=== PATIENT | female | born 1970 | race Caucasian/White ===

== ENCOUNTER 2022-06-14 09:59 | Outpatient (CLI) | payer BC, SELFPAY ==
--- NOTE | 2022-06-14 11:00 | NEURO_ITS ---
Impression: # Complains of paresthesia and pain in hands. # Bilateral Carpal Tunnel Syndrome, sensory more than motor. # No ulnar neuropathy. # Normal needle/EMG exam. Motor Nerve Conduction Upper Extremities Median Nerve Conduction Velocity (m/sec) Terminal Latency (msec) Response Voltage(mV) Elbow-Wrist Wrist Elbow Wrist Right 59 4.1 2 2 Left 59 4.9 2 2 Ulnar Nerve Conduction Velocity (m/sec) Terminal Latency (msec) Response Voltage(mV) Above Elbow Below Elbow Wrist Above Elbow Below Elbow Wrist Right 55 2.5 5 7 Left 58 2.6 5 7 F-Wave Latency Median (ms) Ulnar (ms) Right 26.2 26.7 Left 26.1 26.9 Sensory Nerve Conduction Upper Extremities Median Nerve Stimulation Terminal Latency (msec) Wrist/Digit Response Voltage (uV) Wrist Right 6.7/6.7 13/18 Left 5.6/NR 13/NR Ulnar Nerve Stimulation Terminal Latency (msec) Wrist/Digit Response Voltage (uV) Wrist Right 2.5 45 Left 2.7 19 Radial Nerve Terminal Latency (msec) Response Voltage(mV) Right 2.4 7 Left 2.3 29 Left Right Muscles Examined Fibrillation Fasciculation Scarcity Voltage Duration Left Right Left Right Left Right Left Right Left Right Deltoid Biceps X X Brachioradialis Triceps X X Pronator Teres X X Ext Indicis X X Ext Digitorum X X Abd Poll Brev X X 1st Dorsal Interosseus X X Abd Dig Min MTDD
== END 2022-06-14 10:00 | disposition home or self-care (01) ==
LOC: ANHNEURO 10:01
PROVIDERS: PCP Nurse Practitioner; Visit Provider Orthopaedic Surgery
DX: G56.03 Carpal tunnel syndrome, bilateral upper limbs (principal)
CPT/HCPCS: 95886; 95911

== ENCOUNTER 2022-07-02 01:49 | Day surgery (SDC) | payer BC, SELFPAY ==
[2022-06-19 14:48] VITALS: BMI 26.6
--- NOTE | 2022-06-19 15:16 | SUR.PREOP ---
Report to the Outpatient Waiting Room, entrance under the green pavilion located off [facility], at time _1000 on date _07/02/22 . Planned Procedure Time: _1200 . Time changes happen often and if your time is changed the preop area will call you the afternoon before. - You and your visitor will be asked to self-screen and do not enter if you have any COVID symptoms. - Only one visitor is requested with a max of two and NO children visitors are allowed at this time. - The patient visitor may be requested to leave or wait in car when not with patient due to distancing restrictions. - A mask is optional within the hospital at this time. Patients may have clear liquids (water, carbonated beverages, clear teas, apple juice) until 3 hours prior to surgery with a maximum of 20 ounces. - No food from midnight until time of surgery - Infants may have breast milk until 4 hours before surgery, infant formula 6 hours prior to surgery. - Children will be allowed to drink immediately following surgery. If applicable, please bring a bottle or sippy cup to assist with drinking. Juice, water, soda, and popsicles are readily available. For infants on formula, please bring formula the day of surgery. Pacifiers are allowed. Take the following medications with a SIP of water the morning of surgery: _bupropion,paxel DO NOT STOP ANY OF YOUR OTHER PRESCRIPTION MEDICATIONS PRIOR TO SURGERY ?EXCEPT THE FOLLOWING Medications to discontinue per physician ____n/a Date to take last dose____n/a Please no make-up, nail marshallese, hairspray, perfume, deodorant, or body powder the day of surgery. No jewelry (including any body piercings) or valuables the day of surgery, leave them at home. Please take a shower or bath the night before, or the morning of, surgery with an antibacterial soap. Wear comfortable, loose fitting clothing. Children are encouraged to wear pajamas. - Jewelry must be removed prior to entering the operating room. Rings and piercings that are not removed may be cut off. - The hospital will not accept responsibility for valuables. - Please leave all valuables, including medications, at home the day of surgery. If you are going home after surgery, a licensed garbage collector driver must drive you home. - NO public transportation without another adult if you receive anesthesia. - We recommend that an adult stay with you for 24 hours following discharge. - We also recommend that you do not drive, make important decision, drink alcoholic beverages, or take any drugs that were not prescribed by your health care provider for at least 24 hours after your discharge time. For Pediatric surgeries, we recommend two adults accompany the child home. Follow any additional instructions given to you from your surgeon. If you or anyone in your household have experienced Covid symptoms in the past week, please notify your surgeon or the nurse liaison at the phone number below for possible testing. Telephone instructions given to lyubov gilmore and asked if any additional questions and then verbalized understanding. Patient advised to call surgeon office or pre surgery nurse liaison [phone] if any additional questions.
[2022-07-02] MEDS: ACETAMINOPHEN 500 MG TABLET 1000 MG PO (10:23)
[2022-07-02] MEDS: LACTATED RINGERS 1,000 ML 30 ML IV CONT (10:39)
[2022-07-02 10:48] VITALS: BP 96/64; PULSE 61; RESP 16; TEMP 37.4; O2SAT 100
--- NOTE | 2022-07-02 11:36 | WPDHPUPDATE1 ---
History and Physical Update Update Date/Time: 07/02/22 11:36 History and Physical has been reviewed, including an updated exam of the patient. There are NO changes in the patient's condition. Risks, benefits, and alternatives have been discussed and questions answered. Patient agrees to proceed with procedure.
[2022-07-02] MEDS: KETOROLAC 15 MG/ML VIAL (*BKC) IV PUSH (11:44)
--- NOTE | 2022-07-02 11:47 | WPDANESEPPF ---
Anes - Initial Pre Proc Eval Procedure: Operation Date: 07/02/22 12:00 Proposed Procedures p Bilateral Carpal Tunnel Release - Eriberto Zuñiga MD Date/Time: 07/02/22 11:47 Surgeon: Eriberto Zuñiga MD Pre Op Diagnosis: bilateral carpal tunnel syndrome Patient Data Age: 51 Gender: F Height: 1.65 m Weight: 70.8 kg Last Vital Signs Temp 37.4 C 07/02/22 10:48 Pulse 61 07/02/22 10:48 Resp 16 07/02/22 10:48 BP 96/64 L 07/02/22 10:48 Pulse Ox 100 07/02/22 10:48 O2 Del Method Room Air 07/02/22 10:48 Allergies Allergy/AdvReac Type Severity Reaction Status Date / Time codeine Allergy Mild Rash Verified 07/02/22 10:12 Penicillins Allergy Mild rash Verified 07/02/22 10:12 Home Medications Medication Instructions Recorded Confirmed Type bupropion HCl 300 mg 24 hr tablet, 300 mg PO QAM 03/16/20 07/02/22 History extended release (Wellbutrin XL) pramipexole 0.25 mg tablet 0.25 mg PO TID 03/16/20 07/02/22 History paroxetine HCl 10 mg tablet (Paxil) 20 mg PO DAILY 03/15/21 07/02/22 History Patient hx anesthesia problems: none Family hx anesthesia problems: none Results Review: All pre-operative results and documents have been reviewed as part of the pre-operative evaluation. [facility]LY [facility], [facility] Past Medical History Medical History Anemia Bilateral carpal tunnel syndrome BMI 23.0-23.9, adult Osteoarthritis of right knee Tear of medial meniscus of right knee Surgical History Surgical History H/O shoulder surgery right, 2017, Dr. 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 Informed Consent: The patient's anesthetic plan and its attendant risks and benefits were discussed with the patient/family/POA. Questions were solicited and answers provided to the satisfaction of the patient/family/POA.
[2022-07-02] MEDS: ceFAZolin 2 GM/D5W 50 ML 2 GM/50 ML BAG IVPB (11:54)
[2022-07-02] MEDS: BUPIVACAINE/EPINEPHRINE 0.5% 10 ML VIAL 50 ML INFILTRATE (12:25)
[2022-07-02 12:36] VITALS: BP 134/68; PULSE 63; RESP 14; O2SAT 99
--- NOTE | 2022-07-02 12:53 | W.PM.PROC2 ---
Procedure Note - Detailed Date of Procedure 07/02/22 Pre-op Diagnosis bilateral carpal tunnel syndrome Post-op Diagnosis Same Procedure Performed Bilateral carpal tunnel releases Surgeon Eriberto Zuñiga MD Programs Assistant Kunal Conklin Anesthesia MAC and Local Description of Procedure The patient was identified and proper sites identified. After being taken to the operating room and transferred to the OR table, a nonsterile tourniquet was placed high on the right upper extremity, which was prepped and draped in the usual sterile fashion. Left upper extremity was prepped and draped in usual sterile fashion distal to the antecubital IV. After IV sedation was administered, the subcutaneous tissue in the area of the incision At each wrist was infiltrated with several cc of 0.25% Marcaine and epinephrine solution. The right upper extremity was exsanguinated and tourniquet inflated to 200 mmHg remaining up for approximately 4 minutes. A longitudinal incision was over the ulnar aspect of the transverse carpal ligament. Subcutaneous tissue was bluntly dissected down to the ligament, which was identified and then transected longitudinally in line with the incision releasing the contents of the carpal canal. The tourniquet was released. Hemostasis was carried out with bipolar electrocautery. The median nerve had appropriate blush with reperfusion. The wound was irrigated with sterile saline solution. Skin edges were reapproximated with four 0 nylon suture and a sterile dressing was applied. The same procedure was performed on the left upper extremity but an Esmarch bandage was used as the tourniquet on the midportion of the forearm. It remained in place for about 4 minutes as well. A well-padded volar wrist splint was fashioned with the wrist in a neutral position for each upper extremity. She tolerated the procedures well. There were no known intraoperative complications. Estimated blood loss negligible. She received perioperative antibiotics. Estimated Blood Loss -2.0 Tourniquet Time 4 ( 4 minutes on each side.) Drains No Packing No Pathology None sent Complications No immediate complications Condition Stable Disposition PACU [facility] Billing Surgery - Charge Forward: Surgery Billing ([id number] x 2 Since this was bilateral procedure)
[2022-07-02 13:00] VITALS: BP 130/50; PULSE 60; RESP 20
[2022-07-02 13:30] VITALS: BP 130/62; PULSE 63; RESP 20
[2022-07-02 13:45] VITALS: BP 135/66; PULSE 60; RESP 20
== END 2022-07-02 13:50 | disposition home or self-care (01) ==
PROVIDERS: PCP Nurse Practitioner; Visit Provider Orthopaedic Surgery
PROC: (CPT 64721; principal; 2022-07-02 12:00)
DX: G56.03 Carpal tunnel syndrome, bilateral upper limbs (principal)
CPT/HCPCS: 64721; A9270; J0690; J1885; J2250; J2405; J2704; J3010; J7120

== ENCOUNTER 2023-08-09 00:54 | Day surgery (SDC) | payer BC, SELFPAY ==
[2023-07-31 11:57] VITALS: BMI 25.0
--- NOTE | 2023-07-31 12:02 | PC.NURSE ---
Report to the Outpatient Waiting Room, entrance under the green pavilion located off [facility], at time 0800 on date 08/09/23. Planned Procedure Time: 1000. Time changes happen often and if your time is changed the preop area will call you the afternoon before. - You and your visitor will be asked to self-screen and do not enter if you have any COVID symptoms. - A mask is optional within the hospital at this time. Patients may have clear liquids (water, carbonated beverages, clear teas, apple juice) until 3 hours prior to surgery with a maximum of 20 ounces. - No food from midnight until time of surgery Take the following medications with a SIP of water the morning of surgery: AUVELITY DO NOT STOP ANY OF YOUR OTHER PRESCRIPTION MEDICATIONS PRIOR TO SURGERY ?EXCEPT THE FOLLOWING Medications to discontinue per physician: N/A Date to take last dose: N/A Please no make-up, nail lao, hairspray, perfume, deodorant, or body powder the day of surgery. No jewelry (including any body piercings) or valuables the day of surgery, leave them at home. Please take a shower or bath the night before, or the morning of, surgery with an antibacterial soap. Wear comfortable, loose fitting clothing. - Jewelry must be removed prior to entering the operating room. Rings and piercings that are not removed may be cut off. - The hospital will not accept responsibility for valuables. - Please leave all valuables, including medications, at home the day of surgery. If you are going home after surgery, a licensed pile driver operator must drive you home. - NO public transportation without another adult if you receive anesthesia. - We recommend that an adult stay with you for 24 hours following discharge. - We also recommend that you do not drive, make important decision, drink alcoholic beverages, or take any drugs that were not prescribed by your health care provider for at least 24 hours after your discharge time. Follow any additional instructions given to you from your surgeon. If you or anyone in your household have experienced Covid symptoms in the past week, please notify your surgeon or the nurse liaison at the phone number below for possible testing. Telephone instructions given to SIDNEY BLACKWOOD and asked if any additional questions and then verbalized understanding. Patient advised to call surgeon office or pre surgery nurse liaison [phone] if any additional questions.
--- NOTE | 2023-08-04 11:46 | P.HP_ITS ---
H&P: HPI History of Present Illness Date/Time: 08/04/23 11:46 Chief Complaint: PATRICIO Narrative: 52 who desires surgial intervention for PATRICIO Review of Systems Review of Systems: All systems reviewed & are unremarkable except as noted in HPI and below PMFSH Past Medical History Medical History Anemia BMI 23.0-23.9, adult Osteoarthritis of right knee Tear of medial meniscus of right knee Trigger thumb, right thumb Surgical History Surgical History Bilateral carpal tunnel syndrome simultaneous bilateral carpal tunnel release July 02, 2022 H/O shoulder surgery right, 2017, Dr. 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 Gender identity (if verbalized by the patient): Female Spiritual care concerns: No Meds Home Medications and Allergies Home Medications Medication Instructions Recorded Confirmed Type pramipexole 0.25 mg tablet 0.25 mg PO TID 03/16/20 07/31/23 History dextromethorphan IR 45 1 tablet PO BID 07/31/23 07/31/23 History mg-bupropion ER 105 mg biphasic tablet (Auvelity) estradiol-norethindrone acet 1 1 tablet PO DAILY 07/31/23 07/31/23 History mg-0.5 mg tablet Allergies Allergy/AdvReac Type Severity Reaction Status Date / Time codeine Allergy Mild Rash Verified 07/31/23 11:55 Penicillins Allergy Mild rash Verified 07/31/23 11:55 Exam Narrative: NAD A+O x3 + urehtral mobility Assessment and Plan Assessment and plan (1) PATRICIO (stress urinary incontinence, female): Code(s): N39.3 - Stress incontinence (female) (male) Status: Acute Assessment and Plan: urethral sling. Discussed risks, benifits, alternative. Outlined in chart
--- NOTE | 2023-08-09 04:37 | WPDHPUPDATE1 ---
History and Physical Update Update Date/Time: 08/09/23 04:37 History and Physical has been reviewed, including an updated exam of the patient. There are NO changes in the patient's condition. Risks, benefits, and alternatives have been discussed and questions answered. Patient agrees to proceed with procedure.
--- NOTE | 2023-08-09 08:29 | P.PNAN_ITS ---
Anes - Initial Pre Proc Eval Procedure: Operation Date: 08/09/23 10:00 Proposed Procedures p Urethral Sling - Jeff Lanza MD Date/Time: 08/09/23 08:29 Surgeon: Jeff Lanza MD Pre Op Diagnosis: stress incontinence Patient Data Age: 52 Gender: F Height: 1.65 m Weight: 68.05 kg Allergies Allergy/AdvReac Type Severity Reaction Status Date / Time codeine Allergy Mild Rash Verified 08/09/23 08:44 Penicillins Allergy Mild rash Verified 08/09/23 08:44 Home Medications Medication Instructions Recorded Confirmed Type pramipexole 0.25 mg tablet 0.25 mg PO TID 03/16/20 07/31/23 History dextromethorphan IR 45 1 tablet PO BID 07/31/23 07/31/23 History mg-bupropion ER 105 mg biphasic tablet (Auvelity) estradiol-norethindrone acet 1 1 tablet PO DAILY 07/31/23 07/31/23 History mg-0.5 mg tablet Patient hx anesthesia problems: none Family hx anesthesia problems: none Results Review: All pre-operative results and documents have been reviewed as part of the pre- operative evaluation. [facility] Past Medical History Medical History (Updated 08/09/23 @ 08:31 by Craig Nuñez DO) Anemia Anxiety BMI 23.0-23.9, adult Depression Osteoarthritis of right knee PTSD (post-traumatic stress disorder) RLS (restless legs syndrome) Tear of medial meniscus of right knee Trigger thumb, right thumb Surgical History Surgical History Bilateral carpal tunnel syndrome simultaneous bilateral carpal tunnel release July 02, 2022 H/O shoulder surgery right, 2017, Dr. 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 Informed Consent: The patient's anesthetic plan and its attendant risks and benefits were discussed with the patient/family/POA. Questions were solicited and answers provided to the satisfaction of the patient/family/POA.
[2023-08-09] MEDS: LACTATED RINGERS 1,000 ML 30 ML IV CONT (08:30)
[2023-08-09 08:40] VITALS: BP 118/54; PULSE 61; RESP 14; TEMP 36.5; O2SAT 100
[2023-08-09] MEDS: BUPIVACAINE/EPINEPHRINE 0.5% 30 ML VIAL 10 ML INFILTRATE (09:12)
[2023-08-09] MEDS: ceFAZolin 2 GM/D5W 50 ML 2 GM/50 ML BAG IVPB (09:25)
[2023-08-09 09:54] VITALS: BP 112/64; PULSE 71; RESP 14; O2SAT 100
--- NOTE | 2023-08-09 09:54 | P.OP_ITS ---
Procedure Note - Detailed Date of Procedure 08/09/23 Pre-op Diagnosis stress incontinence Post-op Diagnosis Same Procedure Performed mid urethral sling cystoscopy Surgeon Jeff Lanza MD Anesthesia MAC and Local Indications This is a female with confirm stress urinary incontinence. She desires surgical correction. She understands the risks of bleeding, infection, injury to the urinary tract, vaginal mesh extrusion, urinary tract mesh erosion, obstructive voiding requiring a secondary procedure, hip and leg pain, dyspareunia, inability to improve overactive bladder symptoms. She agrees to proceed. Description of Procedure She was correctly identified. Informed consent obtained. She was brought the operating room. She was given appropriate anesthesia. She was given appropriate perioperative antibiotics. A time-out performed. I marked out the site of the inner thigh incisions. I anesthetized the skin and made those incisions. I anesthetized the anterior vaginal wall over the mid urethra. I made a 1 cm incision. I dissected out laterally taking great care not to injure the refilled vaginal wall. I passed the helical trocars. First on the left. Then on the right. I did this from the thigh incision towards the vaginal incis ion. The sling was connected to the trocars and brought out through the thigh incision. I tensioned the sling appropriately. I cut and the plastic sheaths. I then closed the incision with 2 0 Vicryl. On cystoscopy there is no tumors or surgical artifact. There was no surgical artifact in the urethra. I cut the excess sling material. Close incisions with glue. She was awakened and transferred to the PACU in stable condition. Implants Urethral sling Estimated Blood Loss 30 Drains No Packing No Pathology None sent Complications No immediate complications Condition Stable Disposition PACU
[2023-08-09 10:24] VITALS: BP 117/76; PULSE 64
[2023-08-09 10:54] VITALS: BP 122/65; PULSE 55
--- NOTE | 2023-08-09 11:11 | SUR.PHASEII ---
patient urinated with no issues
[2023-08-09 11:18] VITALS: BP 115/73; PULSE 55
== END 2023-08-09 11:23 | disposition home or self-care (01) ==
PROVIDERS: PCP Nurse Practitioner; Visit Provider Urology
PROC: (CPT 57288; principal; 2023-08-09 10:00)
DX: N39.3 Stress incontinence (female) (male) (principal); F41.9 Anxiety disorder, unspecified; F32.A Depression, unspecified
CPT/HCPCS: 57288; C1771; J0690; J2250; J2704; J3010; J7120

== ENCOUNTER 2025-01-21 01:11 | Day surgery (SDC) | payer BC, SELFPAY ==
--- OUTSIDE RECORDS SUMMARY | 2024-11-04 04:30 | XMS_ITS ---
Author Organization [facility] [email or web address] [facility] Address [facility] [facility] [address] [facility] [address] [place] [address] Care Team Providers Care Circuit Walker Name Role Phone China Bee Primary Care Provider Jairo Lassiter Unavailable [phone] REASON FOR VISIT 1 month f/u Social History Sex Assigned At : Social History Observation Description Sex Assigned At Female Encounters Encounter Location Date Provider Diagnosis [facility] [employer] [place] [address] [facility] [address] [place] [address] 11/04/2024 Jairo Martinez Plan Of Treatment Next Appt Details Provider Name:Jairo lazcano, 03/29/2025 08:45:00 AM, [address], [facility] [address], [place], [address], Progress Notes * MERCED MONACODOB: 9 (54 yo F)Acc No.[id number]:11/04/2024 Patient: MERCED BROWN Provider: MEETA JOHNSON :1970 A ge:53 Y S ex:Female Date:11/04/2024 Address:[address] [facility] Pcp:China SALEEM Subjective: * Chief Complaints: * 1 month f/u Billing Information: * Procedure Codes: * Electronic signature of MEETA Bassett on 01/21/2025 at 01:14 AM CDT Sign off status: Pending * Provider: MEETA JOHNSON Date: 0 11/04/2024 Generated for Grisel kennedy/Angle/Sarmad on: 0 01/21/2025 01:14 AM CDT
--- OUTSIDE RECORDS SUMMARY | 2024-11-26 04:00 | XMS_ITS ---
Author Organization [facility] [employer] [facility] Address [facility] [address] [address] Care Team Providers Care Cath Lab Technologist Name Role Phone China Bee Primary Care Provider Jairo Lassiter Unavailable [phone] REASON FOR VISIT Depression Social History Sex Assigned At : Social History Observation Description Sex Assigned At Female Encounters Encounter Location Date Provider Diagnosis [facility] [employer] [place] [address] [facility] [address] [address] 11/26/2024 Jairo Martinez Plan Of Treatment Next Appt Details Provider Name:Jairo lazcano, 03/29/2025 08:45:00 AM, [address], [facility], [place], [address], Progress Notes * MERCED MONACODOB: 9 (54 yo F)Acc No.[id number]:11/26/2024 Patient: MERCED BROWN Provider: MEETA JOHNSON :1970 A ge:53 Y S ex:Female Date:11/26/2024 Address:[address] [facility] Pcp:China SALEEM Subjective: * Chief Complaints: * D epression * Electronic signature of MEETA Bassett on 01/21/2025 at 01:14 AM CDT Sign off status: Pending * Provider: MEETA JOHNSON Date: 0 11/26/2024 Generated for Grisel kennedy/Angle/Sarmad on: 0 01/21/2025 01:14 AM CDT
--- NOTE | 2025-01-12 13:29 | PC.NURSE ---
Report to the Outpatient Waiting Room, entrance under the green pavilion located off [facility], at time _8:30am on date __[phone] . Planned Procedure Time: _10:30 .? Time changes happen often and if your time is changed the preop area will call you the afternoon before. - You and your visitor will be asked to self-screen and do not enter if you have any COVID symptoms. Please call surgeon if you need to reschedule. - A mask is optional within the hospital at this time. Patients may have clear liquids (water, carbonated beverages, clear teas, apple juice) until 3 hours prior to surgery with a maximum of 20 ounces. - No food from midnight until time of surgery and no smoking, or chewing tobacco (or any form of nicotine). No chewing gum, candy or mints. Take only the following medications with a SIP of water on the morning of surgery: Lexapro, Synthroid, Pramipexole DO NOT STOP ANY OF YOUR OTHER PRESCRIPTION MEDICATIONS PRIOR TO SURGERY EXCEPT THE FOLLOWING: Auvelity the morning of. Celebrex hold for 7 days. Last dose to be taken on 01/13/2025) Hold all vitamins and supplements for 3 days per anesthesiologist. (MVT) Please no make-up, nail bulgarian, hairspray, perfume, deodorant, or body powder the day of surgery.? No jewelry (including any body piercings) or valuables the day of surgery, leave them at home.? Please take a shower or bath the night before, or the morning of, surgery with an antibacterial soap.? Wear comfortable, loose fitting clothing.? Children are encouraged to wear pajamas. - Jewelry must be removed prior to entering the operating room.? Rings and piercings that are not removed may be cut off. - The hospital will not accept responsibility for valuables.? - Please leave all valuables, including medications, at home the day of surgery. If you are going home after surgery, a licensed cdl dedicated truck driver must drive you home.? - NO public transportation without another adult if you receive anesthesia. - We recommend that an adult stay with you for 24 hours following discharge. - We also recommend that you do not drive, make important decision, drink alcoholic beverages, or take any drugs that were not prescribed by your health care provider for at least 24 hours after your discharge time. Follow any additional instructions given to you from your surgeon. Telephone instructions given to __Patient (Adela) and asked if any additional questions and then verbalized understanding. Patient advised to call surgeon office or pre surgery nurse liaison [phone] if any additional questions.
[2025-01-12 13:36] VITALS: BMI 22.8
[2025-01-21] VITALS (9 sets, daily range): BP systolic 98–119; BP diastolic 61–71; PULSE 73–84; RESP 14–17; TEMP 36.4; O2SAT 99–100
--- OUTSIDE RECORDS SUMMARY | 2025-01-21 01:13 | XMS_ITS | Encounter Summary ---
Author Organization [facility] Address [address] [place] [address] Care Team Providers Care Md Ophthalmologist Name Role Phone China Garvey Primary Care Provider [phone] Encounter Details Date Type Department Care Team (Late st Contact Info) Description 06/14/2023 Clear Blue Technologiest Message Enc [facility] [address] [place] [address] China Garvey FNP [address] [place] [phone] Tesfaye Martinez Social History Tobacco Use Types Packs/Day Years Used Date Smoking Tobacco: Never Smokeless Tobacco: Never Alcohol Use Standard Drinks/Week Comments Yes 0 (1 standard drink = 0.6 oz pur e alcohol) rarely AUDIT-C Answer Date Recorded Frequency of Alcohol Consumption Monthly or less 12/03/2018 Average Number of Drinks Not on file 019 Frequency of Binge Drinking Not on file 11/05 PHQ-2 Answer Date Recorded Patient Health Questionnaire-2 Score 6 06/13/2023 Comments No Sex and Gender Information Value Date Recorded Sex Assigned at Female 06/24/2024 1:29 PM ENGINE ROOM HELPER Legal Sex Female 7:54 PM CDT Gender Identity Not on file Sexual Orientation Not on file documented as of this encounter Progress Notes * DENNY Henosn - 06/14/2023 2:43 PM CST Great! I'm glad to hear. That is perfect NE ROOM HELPER * Opal Gorman LPN - 06/14/2023 2:17 PM CST FYI: Please review. NE ROOM HELPER documented in this encounter Plan of Treatment Not on file documented as of this encounter Visit Diagnoses Not on filedocumented in this encounter Additional Health Concerns Infection Onset Date Last Indicated Resolved Time COVID-19 Rule Out 06/10/2024 06/10/2024 06/12/2024 9:38 AM ENGINE ROOM HELPER COVID-19 Rule Out 06/23/2024 06/23/2024 06/23/2024 10:40 AM ENGINE ROOM HELPER COVID-19 Rule Out 06/24/2024 06/24/2024 06/24/2024 2:57 PM ENGINE ROOM HELPER Assessment Noted Time PHQ-9 Depression Total Score: 24 024 2:47 PM ENGINE ROOM HELPER documented as of this encounter Care Teams Md Ophthalmologist Relationship Specialty Start Date End Date China Garvey FNP [address] [place] [address] [place] [address] PCP - General Nurse Practitioner Family 08/18/18 documented as of this encounter
--- OUTSIDE RECORDS SUMMARY | 2025-01-21 01:13 | XMS_ITS | Encounter Summary ---
Author Organization [facility] Address [address] [place] [address] Care Team Providers Care Transition Specialist Name Role Phone China GarveyP Primary Care Provider [phone] Encounter Details Date Type Department Care Team (Late st Contact Info) Description 08/29/2023 Audioairt Message Enc [facility] [address] [place] [address] China Garvey FNP [address] [place] [phone] Lab tests Social History Tobacco Use Types Packs/Day Years [...] Date Recorded Patient Health Questionnaire-2 Score 6 08/07/2023 Comments No Sex and Gender Information Value Date Recorded Sex Assigned at Female 06/24/2024 1:29 PM DIRECTOR GLOBAL INTELLIGENCE Legal Sex Female 7:54 PM CDT Gender Identity Not on file Sexual Orientation Not on file documented as of this encounter Progress Notes * DENNY Henson - 09/02/2023 2:35 PM CDT I reviewed the results, all the labs are resulted except B6 and ferritin. They are still processing. There are no significant abnormalities seen. * DENNY Henson - 08/30/2023 10:07 AM CDT I see the labs in the chart. They are not all resulted yet. I will continue to watch for the results and comment once I can review them all. * Opal Gorman LPN - 08/29/2023 2:06 PM CDT Please review/advise. Lab results are in EPIC. documented in this encounter Plan of Treatment Not on file documented as of this encounter Visit Diagnoses Not on filedocumented in this encounter Additional Health Concerns Infection Onset Date Last Indicated Resolved Time COVID-19 Rule Out 06/10/2024 06/10/2024 06/12/2024 9:38 AM DIRECTOR GLOBAL INTELLIGENCE COVID-19 Rule Out 06/23/2024 06/23/2024 06/23/2024 10:40 AM DIRECTOR GLOBAL INTELLIGENCE COVID-19 Rule Out 06/24/2024 06/24/2024 06/24/2024 2:57 PM DIRECTOR GLOBAL INTELLIGENCE Assessment Noted Time PHQ-9 Depression Total Score: 8 08/07/19 24 5:34 PM CDT documented as of this encounter Care Teams Transition Specialist Relationship Specialty Start Date End Date China Garvey FNP [address] [place] [address] [place] [address] PCP - General Nurse Practitioner Family 08/18/18 documented as of this encounter
--- OUTSIDE RECORDS SUMMARY | 2025-01-21 01:13 | XMS_ITS | Encounter Summary ---
Author Organization [facility] Address [address] [place] [address] Care Team Providers Care Childcare Center Director Name Role Phone China Garvey Primary Care Provider Encounter Details Date Type Department Care Team (Late st Contact Info) Description 12/02/2023 Access Closuret Message Enc [facility] [address] [place] [phone] China Garvey FNP [address] [place] [phone] Blood work Social History Tobacco Use Types Packs/Day Years [...] Sex Assigned at Female 06/24/2024 1:29 PM FIBERGLASS FABRICATOR Legal Sex Female 7:54 PM CDT Gender Identity Not on file Sexual Orientation Not on file documented as of this encounter Progress Notes * DENNY Henson - 12/03/2023 1:27 PM CDT Labs reviewed. Improved! Continued follow up per Dr Hess as planned * Opal Gorman LPN - 12/03/2023 12:29 PM CDT Please review/advise. documented in this encounter Plan of Treatment Not on file documented as of this encounter Visit Diagnoses Not on filedocumented in this encounter Additional Health Concerns Infection Onset Date Last Indicated Resolved Time COVID-19 Rule Out 06/10/2024 06/10/2024 06/12/2024 9:38 AM FIBERGLASS FABRICATOR COVID-19 Rule Out 06/23/2024 06/23/2024 06/23/2024 10:40 AM FIBERGLASS FABRICATOR COVID-19 Rule Out 06/24/2024 06/24/2024 06/24/2024 2:57 PM FIBERGLASS FABRICATOR Assessment Noted Time PHQ-9 Depression Total Score: 8 08/07/19 24 5:34 PM CDT documented as of this encounter Care Teams Childcare Center Director Relationship Specialty Start Date End Date China Garvey FNP [address] [place] [address] [place] [address] PCP - General Nurse Practitioner Family 08/18/18 documented as of this encounter
--- OUTSIDE RECORDS SUMMARY | 2025-01-21 01:14 | XMS_ITS | Encounter Summary ---
Author Organization [facility] Address [address] [place] [address] Care Team Providers Care Help Desk Specialist Name Role Phone China Garvey [facility] Primary Care Provider [phone] Encounter Details Date Type Department Care Team (Late st Contact Info) Description 11/04/2020 Aden & Anaist Message Enc [facility] [address] [place] [address] China Garvey [facility] [address] [place] [phone] RE: RE: Test Results Social History Tobacco Use Types Packs/Day Years Used Date Smoking Tobacco: Never Smokeless Tobacco: Never Alcohol Use Standard Drinks/Week Comments Yes 0 (1 standard drink = 0.6 oz pur e alcohol) AUDIT-C Answer Date Recorded Frequency of Alcohol Consumption Monthly or less 12/03/2018 Average Number of Drinks Not on file 019 Frequency of Binge Drinking Not on file 11/05 PHQ-2 Answer Date Recorded PHQ-2 Score - If the patient scores above 3, please move on to questions 3-9 0 03/01/2020 Comments No Sex and Gender Information Value Date Recorded Sex Assigned at Female 06/24/2024 1:29 PM PRESS TENDER Legal Sex Female 7:54 PM CDT Gender Identity Not on file Sexual Orientation Not on file COVID-19 Exposure Response Date Recorded In the last month, have you been in contact with someone who was confirmed or suspected to have Coronavirus / COVID-19? No / Unsure 10/11/2020 3:28 PM CDT documented as of this encounter Plan of Treatment Not on file documented as of this encounter Visit Diagnoses Not on filedocumented in this encounter Additional Health Concerns Infection Onset Date Last Indicated Resolved Time COVID-19 Rule Out 06/10/2024 06/10/2024 06/12/2024 9:38 AM PRESS TENDER COVID-19 Rule Out 06/23/2024 06/23/2024 06/23/2024 10:40 AM PRESS TENDER COVID-19 Rule Out 06/24/2024 06/24/2024 06/24/2024 2:57 PM PRESS TENDER Assessment Noted Time PHQ-9 Depression Total Score: 10 019 12:51 PM CDT documented as of this encounter Care Teams Help Desk Specialist Relationship Specialty Start Date End Date China Garvey FNP [address] [place] [address] [place] [address] PCP - General Nurse Practitioner Family 08/18/18 documented as of this encounter
--- OUTSIDE RECORDS SUMMARY | 2025-01-21 01:14 | XMS_ITS | Encounter Summary ---
Author Organization [facility] Address [address] [place] [address] Care Team Providers Care Picture Painter Name Role Phone China Garvey [facility] Primary Care Provider [phone] Encounter Details Date Type Department Care Team (Late st Contact Info) Description 10/09/2019 Yokat Message Enc [facility] [address] [place] [address] China Garvey [facility] [address] [place] [phone] RE: RE: Medication Questions Social History Tobacco Use Types Packs/Day Years [...] 11/05 PHQ-2 Answer Date Recorded PHQ-2 Score 5 04/14/2019 Comments Unknown Sex and Gender Information Value Date Recorded Sex Assigned at Female 06/24/2024 1:29 PM METAL ANNEALER Legal Sex Female 7:54 PM CDT Gender Identity Not on file Sexual Orientation Not on file documented as of this encounter Plan of Treatment Not on file documented as of this encounter Visit Diagnoses Not on filedocumented in this encounter Additional Health Concerns Infection Onset Date Last Indicated Resolved Time COVID-19 Rule Out 06/10/2024 06/10/2024 06/12/2024 9:38 AM METAL ANNEALER COVID-19 Rule Out 06/23/2024 06/23/2024 06/23/2024 10:40 AM METAL ANNEALER COVID-19 Rule Out 06/24/2024 06/24/2024 06/24/2024 2:57 PM METAL ANNEALER Assessment Noted Time PHQ-9 Depression Total Score: 10 019 12:51 PM CDT documented as of this encounter Care Teams Picture Painter Relationship Specialty Start Date End Date China Garvey FNP [address] [place] [address] [place] [address] PCP - General Nurse Practitioner Family 08/18/18 documented as of this encounter
--- OUTSIDE RECORDS SUMMARY | 2025-01-21 01:14 | XMS_ITS | Encounter Summary ---
Author Organization [facility] Address [address] [place] [address] Care Team Providers Care Sonography Technician Name Role Phone China Garvey [facility] Primary Care Provider [phone] Encounter Details Date Type Department Care Team (Late st Contact Info) Description 01/27/2020 [employer] Message Enc [facility] [address] [place] [address] China Garvey [facility] [address] [place] [phone] RE: Question Social History Tobacco Use Types Packs/Day Years [...] Date Recorded PHQ-2 Score 5 04/14/2019 Comments No Sex and Gender Information Value Date Recorded Sex Assigned at Female 06/24/2024 1:29 PM SEALER AIRCRAFT Legal Sex Female 7:54 PM CDT Gender Identity Not on file Sexual Orientation Not on file COVID-19 Exposure Response Date Recorded In the last month, have you been in contact with someone who was confirmed or suspected to have Coronavirus / COVID-19? No / Unsure 01/15/2020 3:34 PM CDT documented as of this encounter Progress Notes * Maribell Dominguez RN - 01/27/2020 11:12 AM CDT Liv, please note and advise. documented in this encounter Plan of Treatment Not on file documented as of this encounter Visit Diagnoses Not on filedocumented in this encounter Additional Health Concerns Infection Onset Date Last Indicated Resolved Time COVID-19 Rule Out 06/10/2024 06/10/2024 06/12/2024 9:38 AM SEALER AIRCRAFT COVID-19 Rule Out 06/23/2024 06/23/2024 06/23/2024 10:40 AM SEALER AIRCRAFT COVID-19 Rule Out 06/24/2024 06/24/2024 06/24/2024 2:57 PM SEALER AIRCRAFT Assessment Noted Time PHQ-9 Depression Total Score: 10 12/03/ 019 12:51 PM CDT documented as of this encounter Care Teams Sonography Technician Relationship Specialty Start Date End Date China Garvey FNP [address] [place] [address] [place] [address] PCP - General Nurse Practitioner Family 08/18/18 documented as of this encounter
--- OUTSIDE RECORDS SUMMARY | 2025-01-21 01:14 | XMS_ITS | Encounter Summary ---
Author Organization [facility] Address [address] [place] [address] Care Team Providers Care Director Of Purchasing Name Role Phone China Garvey [employer] Primary Care Provider [phone] Reason for Visit * Reason Onset Date Comments Error 03/02/2020 Encounter Details Date Type Department Care Team (Late st Contact Info) Description 03/01/2020 Prep for Procedure [facility] General [facility] - [place] [address] [facility], [address] [place] [address] Abbi Marlow, [place] [address] [facility] [address] [place] [address] Error Social History Tobacco Use Types Packs/Day Years [...] Sex Assigned at Female 06/24/2024 1:29 PM MEDICAL SERVICE REPRESENTATIVE Legal Sex Female 7:54 PM CDT Gender Identity Not on file Sexual Orientation Not on file COVID-19 Exposure Response Date Recorded In the last month, have you been in contact with someone who was confirmed or suspected to have Coronavirus / COVID-19? No / Unsure 03/01/2020 11:07 AM CDT documented as of this encounter Plan of Treatment Not on file documented as of this encounter Visit Diagnoses Diagnosis ERRONEOUS ENCOUNTER--DISREGARD- Primary documented in this encounter Additional Health Concerns Infection Onset Date Last Indicated Resolved Time COVID-19 Rule Out 06/10/2024 06/10/2024 06/12/2024 9:38 AM MEDICAL SERVICE REPRESENTATIVE COVID-19 Rule Out 06/23/2024 06/23/2024 06/23/2024 10:40 AM MEDICAL SERVICE REPRESENTATIVE COVID-19 Rule Out 06/24/2024 06/24/2024 06/24/2024 2:57 PM MEDICAL SERVICE REPRESENTATIVE Assessment Noted Time PHQ-9 Depression Total Score: 10 019 12:51 PM CDT documented as of this encounter Care Teams Director Of Purchasing Relationship Specialty Start Date End Date China Garvey FNP [address] [place] [address] [place] [address] PCP - General Nurse Practitioner Family 08/18/18 documented as of this encounter
--- OUTSIDE RECORDS SUMMARY | 2025-01-21 01:14 | XMS_ITS | Encounter Summary ---
Author Organization [facility] Address [address] [place] [address] Care Team Providers Care Senior Property Manager Name Role Phone China Garvey [facility] Primary Care Provider [phone] Encounter Details Date Type Department Care Team (Late st Contact Info) Description 01/31/2021 Cardiolat Message Enc [facility] [address] [place] [address] China Garvey [facility] [address] [place] [phone] RE: FW: Medication Questions Social History Tobacco Use Types [...] please move on to questions 3-9 0 11/18/2020 Comments No Sex and Gender Information Value Date Recorded Sex Assigned at Female 06/24/2024 1:29 PM METEOROLOGY FACULTY MEMBER Legal Sex Female 7:54 PM CDT Gender Identity Not on file Sexual Orientation Not on file documented as of this encounter Progress Notes * Shamika Mahajan LPN - 02/01/2021 2:27 PM CDT Office visit made for 02/08/2021 documented in this encounter Plan of Treatment Not on file documented as of this encounter Visit Diagnoses Not on filedocumented in this encounter Additional Health Concerns Infection Onset Date Last Indicated Resolved Time COVID-19 Rule Out 06/10/2024 06/10/2024 06/12/2024 9:38 AM METEOROLOGY FACULTY MEMBER COVID-19 Rule Out 06/23/2024 06/23/2024 06/23/2024 10:40 AM METEOROLOGY FACULTY MEMBER COVID-19 Rule Out 06/24/2024 06/24/2024 06/24/2024 2:57 PM METEOROLOGY FACULTY MEMBER Assessment Noted Time PHQ-9 Depression Total Score: 0 11/19/19 21 3:32 PM CDT documented as of this encounter Care Teams Senior Property Manager Relationship Specialty Start Date End Date China Garvey FNP [address] [place] [address] [place] [address] PCP - General Nurse Practitioner Family 08/18/18 documented as of this encounter
--- OUTSIDE RECORDS SUMMARY | 2025-01-21 01:14 | XMS_ITS | Encounter Summary ---
Author Organization [facility] Address [address] [place] [address] Care Team Providers Care Bulk Folder Name Role Phone China Garvey [facility] Primary Care Provider Encounter Details Date Type Department Care Team (Late st Contact Info) Description 03/14/2020 SnapMD Message Enc [facility] [address] [place] [address] China Garvey [facility] [address] [place] [phone] RE: Medication Questions Social History Tobacco Use [...] Sex Assigned at Female 06/24/2024 1:29 PM NET TECHNICAL ARCHITECT Legal Sex Female 7:54 PM CDT Gender Identity Not on file Sexual Orientation Not on file COVID-19 Exposure Response Date Recorded In the last month, have you been in contact with someone who was confirmed or suspected to have Coronavirus / COVID-19? No / Unsure 03/01/2020 11:07 AM CDT documented as of this encounter Progress Notes * Maribell Dominguez RN - 03/15/2020 11:03 AM CST LM for patient to return call. TECHNICAL ARCHITECT documented in this encounter Plan of Treatment Not on file documented as of this encounter Visit Diagnoses Not on filedocumented in this encounter Additional Health Concerns Infection Onset Date Last Indicated Resolved Time COVID-19 Rule Out 06/10/2024 06/10/2024 06/12/2024 9:38 AM NET TECHNICAL ARCHITECT COVID-19 Rule Out 06/23/2024 06/23/2024 06/23/2024 10:40 AM NET TECHNICAL ARCHITECT COVID-19 Rule Out 06/24/2024 06/24/2024 06/24/2024 2:57 PM NET TECHNICAL ARCHITECT Assessment Noted Time PHQ-9 Depression Total Score: 10 019 12:51 PM CDT documented as of this encounter Care Teams Bulk Folder Relationship Specialty Start Date End Date China Garvey FNP [address] [place] [address] [place] [address] PCP - General Nurse Practitioner Family 08/18/18 documented as of this encounter
--- OUTSIDE RECORDS SUMMARY | 2025-01-21 01:14 | XMS_ITS | Clinical Summary ---
Author Organization [facility] Address [address] [address] Phone Care Team Providers Care Conciliation Court Judge Name Role Phone Garvey China Cancino APRN Primary Care Provider Sarah Black MD Unavailable Allergies Active Allergy Reactions Criticality Noted Date Comments Codeine Rash Low 09/12/2011 Penicillins Rash Low 09/12/2011 Medications pramipexole (MIRAPEX) 0.25 MG Tablet TAKE 3 TABLETS BY MOUTH 3 TIMES DAILY. 07/19/2021 Active Multiple Vitamin (MULTIVITAMIN PO) Take by mouth. Active traZODone (DESYREL) 50 MG Tablet TAKE 1/2 TO 1 TABLET BY MOUTH AT BEDTIME NEEDED Active levothyroxine (SYNTHROID) 25 MCG Tablet Take 25 mcg by mouth. 06/28/2023 Active Estradiol-Noret hindrone Acet 1-0.5 MG Tablet Take 1 Tablet by mouth daily. 05/30/2023 Active Auvelity 45-105 MG Tablet Controlled Release Take 1 Tablet by mouth 2 times daily. Active escitalopram (LEXAPRO) 10 MG Tablet Take 10 mg by mouth daily. 01/01/2024 Active Active Problems Problem Noted Date Diagnosed Date Iron deficiency anemia refractory to iron therap y 07/31/2021 Family History Relation Name Status Comments Brother 1 Alive Brother 2 Alive Father Alive Mother Alive Sister Alive Social History Tobacco Use Types Packs/Day Years Used Date Smoking Tobacco: Never Smokeless Tobacco: Never Tobacco Cessation:Counseling Given: No Alcohol Use Standard Drinks/Week Comments Never 0 (1 standard drink = 0.6 oz pur e alcohol) PHQ-2 Answer Date Recorded Total Score - Questions 1-9 0 05/0 01/2022 Comments Unknown Sex and Gender Information Value Date Recorded Sex Assigned at Not on file Legal Sex Female 9:06 AM CDT Gender Identity Not on file Sexual Orientation Not on file Last Filed Vital Signs Vital Sign Reading Time Taken Comments Blood Pressure 102/60 03/02/2024 9:11 AM CDT Pulse 65 03/02/2024 9:11 AM CDT Temperature 36.4 C (97.6 F) 03/02/2024 9:11 AM CDT Respiratory Rate - - Oxygen Saturation 97% 03/02/2024 9:11 AM CDT Inhaled Oxygen Concentration - - Weight 74.4 kg (164 lb) 03/02/2024 9:11 AM CDT Height 165.1 cm (5' 5) 03/02/2024 9:11 AM CDT Body Mass Index 27.29 03/02/2024 9:11 AM CDT Plan of Treatment Health Maintenance Due Date Last Done Comments Hepatitis C Virus (HCV) Screening 1970 Hepatitis B Immunization (1 of 3 - 19+ 3-dose series) 12/17/1987 Pap Smear 1989 Cervical Cancer Screening (CCS) 1998 HPV/Cotest 1998 Cologuard 2013 Immunochemical Fecal Occult Blood 2013 Pneumococcal Immunization (5 0+ years) (1 of 1 - PCV) 2018 Zoster Immunization (1 of 2) 2018 Mammogram 01/17/2021 01/18/2020, 01/18/2020 Influenza Immunization (#1) 2025 03/20/2021 SARS-COV-2 Immunization ( season) 2025 04/24/2021, 06/15/2020, 05/18/2020 Colonoscopy 09/30/2031 09/29/2021 Colorectal Cancer Screening 09/30/2031 Respiratory Syncytial Virus (RSV) Immunization (Adult) (1 - 1-dose 75+ series) 12/17/2043 DTaP/Tdap/Td Immunization Discontinued 05/06/2022 TdaP Immunization Completed 05/06/2022 Human Papillomavirus (HPV) Immunization Aged Out No longer eligible based on patient's age to complete this topic Meningococcal Immunization (ACWY) Aged Out No longer eligible based on patient's age to complete this topic Rotavirus Immunization Aged Out No lo nger eligible based on patient's age to complete this topic Insurance [facility] Care Teams Conciliation Court Judge Relationship Specialty Start Date End Date China Garvey APRN [address] [place] [address] PCP - General Certified Nurse Practitioner 07/20/21 Sarah Black MD [address] [place] [address] Consulting Physician Oncology 08/07/24
--- OUTSIDE RECORDS SUMMARY | 2025-01-21 01:14 | XMS_ITS | Encounter Summary ---
Author Organization [facility] Address [address] [place] [id number] Care Team Providers Care Interactive Media Specialist Name Role Phone China Garvey [facility] Primary Care Provider [phone] Encounter Details Date Type Department Care Team (Late st Contact Info) Description 07/11/2021 eeGeot Message Enc [facility] [address] [place] [address] China Garvey [facility] [address] [place] [phone] medication Social History Tobacco Use Types Packs/Day Years [...] Sex Assigned at Female 06/24/2024 1:29 PM TITLE ABSTRACTOR Legal Sex Female 7:54 PM CDT Gender Identity Not on file Sexual Orientation Not on file documented as of this encounter Plan of Treatment Not on file documented as of this encounter Visit Diagnoses Not on filedocumented in this encounter Additional Health Concerns Infection Onset Date Last Indicated Resolved Time COVID-19 Rule Out 06/10/2024 06/10/2024 06/12/2024 9:38 AM TITLE ABSTRACTOR COVID-19 Rule Out 06/23/2024 06/23/2024 06/23/2024 10:40 AM TITLE ABSTRACTOR COVID-19 Rule Out 06/24/2024 06/24/2024 06/24/2024 2:57 PM TITLE ABSTRACTOR Assessment Noted Time PHQ-9 Depression Total Score: 0 11/19/19 21 3:32 PM CDT documented as of this encounter Care Teams Interactive Media Specialist Relationship Specialty Start Date End Date China Garvey FNP [address] [place] [address] [place] [address] PCP - General Nurse Practitioner Family 08/18/18 documented as of this encounter
--- OUTSIDE RECORDS SUMMARY | 2025-01-21 01:14 | XMS_ITS | Clinical Summary ---
Author Organization [facility] Address [address] [place] [address] Care Team Providers Care Psychiatric Aides Teacher Name Role Phone China Garvey RECEPTIONIST/TELEPHONE OPERATOR Primary Care Provider [phone] Allergies Active Allergy Reactions Criticality Noted Date Comments Codeine Rash Medium 09/12/2011 Penicillins Rash Medium 09/12/2011 Medications traZODone (DESYREL) 50 MG tablet Take 1 tablet (50 mg total) by mouth nightly at bedtime. at bedtime 4 Active AUVELITY 45-105 MG Tab CR Take 1 tablet by mouth 2 (two) times daily. 4 Active escitalopram (LEXAPRO) 10 MG tablet Take 1 tablet (10 mg total) by mouth daily. 4 Active methylphenidate LA (RITALIN LA) 30 MG 24 hr capsule Take 1 capsule (30 mg total) by mouth every morning. 4 Active pramipexole (MIRAPEX) 0.25 MG tabletIndications:R LS (restless legs syndrome) TAKE 3 TABLETS BY MOUTH THREE TIMES DAILY 810 tablet 3 5 Active celecoxib (CELEBREX) 100 MG capsuleIndications: Chronic pain of right knee TAKE 1 CAPSULE(100 MG) BY MOUTH TWICE DAILY 180 capsule 5 Active levothyroxine (SYNTHROID) 25 MCG tabletIndications:A cquired hypothyroidism Take 1 tablet (25 mcg total) by mouth every morning. THYROID LABWORK DUE. 30 tablet 5 Active Active Problems Problem Noted Date Diagnosed Date Dermatitis 01/29/2023 Frequent UTI 01/29/2023 Mixed stress and urge urinary incontinence 01/29 Acquired hypothyroidism 01/29/2023 Screen for colon cancer 08/31/2021 Overview (08/31/2021): Added automatically from request for surgery [id number] Other osteoporosis without current pathological fracture 10/11/2020 Left medial tibial stress syndrome, initial enco unter 03/01/2020 Chronic pain of right knee 02/12/2020 Anxiety disorder 02/12/2018 Overview (12/30/2018): Date Onset: 02/12/2018 Celiac disease (HHS/HCC) 08/17/2016 Overview (12/30/2018): Date Onset: 08/2016 Iron deficiency anemia 04/27/2015 Overview (12/30/2018): Date Onset: 04/27/2015 Depression 09/12/2011 RLS (restless legs syndrome) 09/12/2011 Encounters Date Type Department Care Team Description 11/29/2024 Results Follow-Up [address] [place] [address] China Garvey FNP MRI KNEE RT WO CON 11/26/[address] [place] [address] China Garvey FNP Results 11/20/2024 6:39 AM CDT - 11/20/2024 11:59 PM CDT Hospital Encounter [facility] MRI [address] [place] [address] China Garvey FNP Discharge Disposition: Home or Self Care (Routine Discharge) 11/20/[address] [place] [address] China Garvey FNP Referral 11/20/2024 Travel 11/11/[address] [place] [address] China Garvey FNP Orders 11/03/2024 Scan HEALTH INFO SRVCS Scanned, Doc [facility] 11/03/2024 BeachMinthart Message Enc [facility] [address] [place], [place] [id number] China Garvey FNP Right knee 10/22/2024 8:30 AM CDT Office Visit [facility] [address], [address] [place] [address] Mt Hughes II, MD New Patient (Right knee pain. ) 10/22/2024 8:01 AM CDT - 10/22/2024 11:59 PM CDT Hospital Encounter [facility] [address] [place] [address] Mt Hughes II, MD Discharge Disposition: Home or Self Care (Routine Discharge) 10/22/2024 Telephone [facility] [address], [address] [place] [address] Mt Hughes II, MD Injection (orthovisc) 10/22/2024 Travel from Last 3 Months Immunizations Immunization Administration Dates Next Due Influenza Adult (Generic) 03/20/2021 MODERNA COVID-19 (12+) MRNA, LNP-S, PF, 100 MCG/ 0.5 ML DOSE 04/24/2021,06/15/2020,05/18/2020 Tdap (Generic) 05/06/2022 Social History Tobacco Use Types Packs/Day Years Used Date Smoking Tobacco: Never Smokeless Tobacco: Never Tobacco Cessation:Counseling Given: No Alcohol Use Standard Drinks/Week Comments Yes 0 (1 standard drink = 0.6 oz pur e alcohol) rarely AUDIT-C Answer Date Recorded Frequency of Alcohol Consumption Monthly or less 12/03/2018 Average Number of Drinks Not on file 019 Frequency of Binge Drinking Not on file 11/05 PHQ-2 Answer Date Recorded Patient Health Questionnaire-2 Score 6 10/14/2024 Comments No Sex and Gender Information Value Date Recorded Sex Assigned at Female 06/24/2024 1:29 PM FINANCIAL DIRECTOR Legal Sex Female 7:54 PM CDT Gender Identity Not on file Sexual Orientation Not on file Last Filed Vital Signs Vital Sign Reading Time Taken Comments Blood Pressure 113/67 10/22/2024 8:27 AM CDT Pulse 75 10/22/2024 8:27 AM CDT Temperature 36.5 C (97.7 F) 10/22/2024 8:27 AM CDT Respiratory Rate 18 10/22/2024 8:27 AM CDT Oxygen Saturation 98% 10/22/2024 8:27 AM CDT Inhaled Oxygen Concentration - - Weight 68.7 kg (151 lb 8 oz) 10/22/2024 8:27 AM CDT Height 165.1 cm (5' 5) 10/22/2024 8:27 AM CDT Body Mass Index 25.21 10/22/2024 8:27 AM CDT Plan of Treatment Health Maintenance Due Date Last Done Comments Annual Physical 12/17/1971 Hepatitis C 1986 Hepatitis B Vaccines (1 of 3 - 19+ 3-dose series) 12/17/1987 Cervical Cancer Screening Pa p Smear (Age 30 to 64) Every 3 Years 08/04/2016 08/04/2013, 07/07/2013 Pneumococcal Vaccine: 50+ Years (1 of 1 - PCV) 2018 Zoster Vaccines (1 of 2) 2018 Mammogram Screening 01/17/2022 01/18/2020 Cervical Cancer Screening Pa p with HPV Testing (Age 30 to 64) Every 5 Years 08/29/2023 08/28/2018 Cervical Cancer Screening wi th HPV 08/29/2023 COVID-19 Vaccine (2024-2 6 season) 2025 04/24/2021, 06/15/2020, 05/18/2020 Colorectal Cancer Screening Colonoscopy (10 Years) 09/30/2031 09/29/2021 DTaP, Tdap and Td Vaccines ( 2 - Td or Tdap) 05/06/2032 05/06/2022 PHQ-2 (Physician [place]) Completed 10/14/2024 Meningococcal B Vaccine Aged Out No l onger eligible based on patient's age to complete this topic Meningococcal Vaccine Aged Out No phylicia jaquan eligible based on patient's age to complete this topic RSV Immunizations Under 20 Months Aged Out No longer eligible b ased on patient's age to complete this topic Procedures Procedure Name Priority Date/Time Associated Diagnosis Comments MRI KNEE RT WO CON Routine 11/20/2024 7: 48 AM CDT Knee pain XR KNEE RT 1V Routine 10/22/2024 8:01 AM CDT Chronic pain of right knee MG SCREENING ZAIRA DIGI 01/18/2020 7:24 PM CDT HPV MRNA E6/E7 Routine 08/28/2018 5:15 PM CDT THINPREP IMAGING PAP REFLEX HPV MRNA E6/E7 Routine 08/04/2013 5:21 PM CDT from Last 3 Months or Most Recently Relevant to Health Maintenance Results * MRI KNEE RT WO CON (11/20/2024 7:48 AM CDT) Anatomical Region Laterality Modality Knee Magnetic Resonan ce 11/26/2024 8:31 PM CDT Impressions 11/26/2024 8:34 PM CDT IMPRESSION: 1. Degenerative change medial compartment right knee. 2. Tear body and posterior horn medial meniscus. 3. Small joint effusion. Referred By: CHINA GARVEY Interpreted By: Cristi Mcguire MD, 11/26/2024 8:31 PM Narrative 11/26/2024 8:34 PM CDT [facility] [address] [place] [address] Examination: MRI KNEE RT WO CON Exam time: 11/20/2024 7:00 AM Clinical history: Chronic medial knee pain. Comparison: 03/08/2020 MRI right knee Technique: Axial fat suppression proton density sequence was obtained. Sagittal proton density, fat suppression T2, and cartilage sensitive gradient echo sequences were performed. Coronal proton density and coronal fat suppression T2 sequences were obtained. Findings: There is a small joint effusion. There is no evidence of a popliteal cyst. Signal intensity of the subcutaneous tissues and musculature about the right knee is unremarkable. Anterior and posterior cruciate ligaments appear intact. Lateral meniscus appears unremarkable. There is degenerative change involving the medial compartment of the right knee with decrease articular cartilage and small medial marginal osteophytes. There is subcortical marrow edema involving the medial aspect of the medial tibial plateau consistent with degenerative change. There is a truncated appearance of the body of the medial meniscus and there is abnormal signal intensity within the posterior horn of the medial meniscus which extends to the inferior articular surface. Findings consistent with a tear of the body and posterior horn of the medial meniscus with no evidence of a displaced meniscal fragment. Medial and lateral collateral ligament complexes appear intact. Quadriceps and patella tendons appear unremarkable. Procedure Note Cristi Mcguire MD - 11/26/2024 [facility] [address] [place] [address] Examination: MRI KNEE RT WO CON Exam time: 11/20/2024 7:00 AM Clinical history: Chronic medial knee pain. Comparison: 03/08/2020 MRI right knee Technique: Axial fat suppression proton density sequence was obtained.Sagittal proton density, fat suppression T2, and cartilage sensitivegradient echo sequences were performed. Coronal proton density andcoronal fat suppression T2 sequences were obtained. Findings: There is a small joint effusion. There is no evidence of apopliteal cyst. Signal intensity of the subcutaneous tissues and musculature about theright knee is unremarkable. Anterior and posterior cruciate ligaments appear intact. Lateral meniscus appears unremarkable. There is degenerative change involving the medial compartment of the rightknee with decrease articular cartilage and small medial marginalosteophytes. There is subcortical marrow edema involving the medialaspect of the medial tibial plateau consistent with degenerative change.There is a truncated appearance of the body of the medial meniscus andthere is abnormal signal intensity within the posterior horn of the medialmeniscus which extends to the inferior articular surface. Findingsconsistent with a tear of the body and posterior horn of the medialmeniscus with no evidence of a displaced meniscal fragment. Medial and lateral collateral ligament complexes appear intact. Quadriceps and patella tendons appear unremarkable. IMPRESSION: 1. Degenerative change medial compartment right knee. 2. Tear body and posterior horn medial meniscus. 3. Small joint effusion. Referred By: CHINA GARVEY Interpreted By: Cristi Mcguire MD, 11/26/2024 8:31 PM us China Garvey RECEPTIONIST/TELEPHONE OPERATOR MRI Final Result * XR KNEE RT 1V (10/22/2024 8:01 AM CDT) Anatomical Region Laterality Modality Knee Radiographic Eva ging 10/22/2024 10:0 7 AM CDT Impressions 10/22/2024 10:08 AM CDT IMPRESSION: Mild degenerative changes in the medial compartment with mild varus deformity. Ordered By: MT HUGHES II Interpreted By: Soham Albrecht MD, 10/22/2024 10:07 AM Narrative 10/22/2024 10:08 [place] [address] Examination: XR KNEE RT 1V Exam time: 10/22/2024 8:01 AM Clinical history: Right knee pain. Comparison: No previous. Technique: One view. PA Standing radiograph. Findings: There is no malalignment. There are mild degenerative changes in the medial compartment with mild varus deformity. No acute bony abnormalities. Surrounding soft tissues are unremarkable. Procedure Note Soham Albrecht MD - 10/22/2024 [place] [address] Examination: XR KNEE RT 1V Exam time: 10/22/2024 8:01 AM Clinical history: Right knee pain. Comparison: No previous. Technique: One view. PA Standing radiograph. Findings: There is no malalignment. There are mild degenerative changes inthe medial compartment with mild varus deformity. No acute bonyabnormalities. Surrounding soft tissues are unremarkable. IMPRESSION: Mild degenerative changes in the medial compartment with mild varusdeformity. Ordered By: MT HUGHES II Interpreted By: Soham Albrecht MD, 10/22/2024 10:07 AM us Mt Hughes II, MD GENERAL IMAGING Final Re sult * MG SCREENING ZAIRA DIGI (01/18/2020 7:24 PM CDT) Anatomical Region Laterality Modality Breast Bilateral Mammography 01/18/2020 7:24 PM CDT Narrative 01/18/2020 4:23 PM CDT [facility] ---------NAME--------- NUMBER SEX AGE ADMIT DISC. XRAY# F/C TYPE CARLOS ENRIQUE Valdiv[place] [id number] F [id number] 01/18/20 01/18/20 BB O/P DATE OF : 1970 M/R# [id number] #: [id number] MAMMOGRAM SCREENING WITH KHUSHI [id number] COMPLETED: [id number] {MAMMO DX: SCREENING PHYSICIAN: PAMELA CYNTH R A D I O L O G Y R E P O R T EXAMINATION: MAMMOGRAM SCREENING WITH KHUSHI AND I/CAD WITH TOMOSYNTHESIS AND COMPUTER-AIDED DETECTION (CAD) DATE: 01/18/2020 3:43 PM COMPARISON STUDIES: 08/13/2014, 07/13/2013, 04/15/2012. CLINICAL HISTORY: MAMMO DX: SCREENING. Family history of breast CA: Grandmother FINDINGS: Bilateral CC, MLO, 2-D and 3-D acquisitions. Scattered residual fibroglandular parenchyma . Similar in appearance and distribution to the previous exams. No evidence of dominant mass, architectural distortion, skin thickening, nipple retraction or suspicious clusters of microcalcifications. Benign calcifications redemonstrated. CONCLUSION: 1. BI-RADS Category 2 - benign findings. Annual screening mammography recommended 2. TISSUE TYPE: Category B - There are areas of scattered fibroglandular density. MQSA BI-RADS Categories: Category 0 - needs additional imaging evaluation. Category 1 - negative. Category 2 - benign findings. Category 3 - probably benign findings, but short interval follow-up is recommended. Category 4 - suspicious abnormality and biopsy should be considered though the lesion may well be benign. Category 5 - highly suggestive of malignancy and appropriate action should be taken. A) A negative report should not delay a biopsy if a dominant or clinically suspicious mass is present. B) Adenosis and dense breasts may obscure an underlying neoplasm. C) Study interpreted with computer aided detection. Voice recognition software utilized. Interpreted By: Artem Kothari, 01/18/2020 4:19 PM Electronically Signed By: ARTEM Greer , BOARD CERTIFIED Date/Time: 01/18/20 16:20 Procedure Note Carla Curran MD - 01/18/2020 [facility] ---------NAME--------- NUMBER SEX AGE ADMIT DISC. XRAY# F/CTYPE CARLOS ENRIQUE [place] [id number] F [id number] 01/18/20 01/18/20 BBO/P DATE OF : 1970 M/R# [id number] #: [id number] MAMMOGRAM SCREENING WITH KHUSHI [id number] COMPLETED:[id number] {MAMMO DX: SCREENING PHYSICIAN: PAMELA LOERA R A D I O L O G Y R E P O R T EXAMINATION: MAMMOGRAM SCREENING WITH KHUSHI AND I/CAD WITH TOMOSYNTHESISAND COMPUTER-AIDED DETECTION (CAD) DATE: 01/18/2020 3:43 PM COMPARISON STUDIES: 08/13/2014, 07/13/2013, 04/15/2012. CLINICAL HISTORY: MAMMO DX: SCREENING. Family history of breast CA: Grandmother FINDINGS: Bilateral CC, MLO, 2-D and 3-D acquisitions. Scattered residualfibroglandular parenchyma . Similar in appearance and distribution to the previous exams.No evidence of dominant mass, architectural distortion, skin thickening,nipple retraction or suspicious clusters of microcalcifications. Benigncalcifications redemonstrated. CONCLUSION: 1. BI-RADS Category 2 - benign findings. Annual screening mammography recommended 2. TISSUE TYPE: Category B - There are areas of scatteredfibroglandular density. MQSA BI-RADS Categories: Category 0 - needs additional imaging evaluation. Category 1 - negative. Category 2 - benign findings. Category 3 - probably benign findings, but short interval follow-up is recommended. Category 4 - suspicious abnormality and biopsy should be considered though the lesion may well be benign. Category 5 - highly suggestive of malignancy and appropriate action should be taken. A) A negative report should not delay a biopsy if a dominant or clinically suspicious mass is present. B) Adenosis and dense breasts may obscure an underlying neoplasm. C) Study interpreted with computer aided detection. Voice recognition software utilized. Interpreted By: Artem Kothari, 01/18/2020 4:19 PM Electronically Signed By: ARTEM Greer , BOARD CERTIFIED Date/Time: 01/18/20 16:20 China Garvey RECEPTIONIST/TELEPHONE OPERATOR MAMMO Final Result * HPV MRNA E6/E7 (08/28/2018 5:15 PM CDT) HPV MRNA E6/E7 Not Detected NOT DETECTED 09/01/2018 4:32 AM CDT [facility] [facility]ARNICA Comment: This test was performed using the APTIMA(R) HPV Assay([employer]This assay detects E6/E7 viral messenger RNA (mRNA)from 14 high-risk HPV types (16,18,31,33,35,39,45,51,52,56,58,59,66,68).For additional information please refer to:http://education.inkSIG Digital/faq/NDM631o3(This link is being provided for informational/educational purposes only.)The analytical performance characteristics of thisassay have been determined by [facility] [place]. The modificationshave not been cleared or approved by the FDA. Thisassay has been validated pursuant to the CLIAregulations and is used for clinical purposes.Test Performed by [facility],[address] [place] [id number] Lara M.D., Ph.D., Director of [phone], CLIA [id number] FLUID SPECIMEN / Unknown 08/28/2018 5:15 PM CDT 08/28/2018 5:15 PM CDT Generic Conversion Md CURRAN PATHOLOGY/CYTOLOGY LESTER POWELL Final Result [facility] [address] [address], [place] [phone] * THINPREP IMAGING PAP REFLEX HPV MRNA E6/E7 (08/04/2013 5:21 PM CDT) REFLEX ADDED no [facility] P TO EPIC CONVERSION 08/04/2013 5:21 PM CDT 08/04/2013 5:21 PM CDT Narrative [facility] TO EPIC CONVERSION - 08/13/2013 2:04 PM CDT This lab was migrated from [facility] and may be missing annotations or result text, please check the Media tab for the most complete results. [place] BALDWIN PATHOLOGY/CYTOLOGY ORDERABLES Final Result [facility] TO EPIC CONVERSION from Last 3 Months or Most Recently Relevant to Health Maintenance Insurance Arturo [place] [id number] [facility] Care Teams Psychiatric Aides Teacher Relationship Specialty Start Date End Date China Garvey FNP [address] [place] [address] [place] [address] PCP - General Nurse Practitioner Family 08/18/18
--- OUTSIDE RECORDS SUMMARY | 2025-01-21 01:14 | XMS_ITS | Encounter Summary ---
Author Organization [facility] Address [address] [place] [address] Phone Care Team Providers Care Commissary Superintendent Name Role Phone China Garvey APRN Primary Care Provider [phone] Sarah Black MD Unavailable Encounter Details Date Type Department Care Team (Late st Contact Info) Description 08/17/2024 Telephone [facility] [address], [facility] [address] [place] [address] Sarah Black MD [address] [place] [address] Social History Tobacco Use Types Packs/Day Years Used Date Smoking Tobacco: Never Smokeless Tobacco: Never Alcohol Use Standard Drinks/Week Comments Never 0 [...] on file documented as of this encounter Miscellaneous Notes * Telephone Encounter - Lucinda Crowley - 08/17/2024 11:27 AM CDT Called patient regarding missed appointment. Left message for her to call back. documented in this encounter Plan of Treatment Not on file documented as of this encounter Visit Diagnoses Not on filedocumented in this encounter Care Teams Commissary Superintendent Relationship Specialty Start Date End Date China Garvey APRN [address] [place] [address] PCP - General Certified Nurse Practitioner 07/20/21 Sarah Black MD [address] [place] [address] Consulting Physician Oncology 08/07/24 documented as of this encounter
--- OUTSIDE RECORDS SUMMARY | 2025-01-21 01:14 | XMS_ITS | Encounter Summary ---
Author Organization [facility] Address [address] [place] [address] Care Team Providers Care Studio Associate Name Role Phone China Garvey [facility] Primary Care Provider [phone] Encounter Details Date Type Department Care Team (Late st Contact Info) Description 02/07/2021 Centaur Message Enc [facility] [address] [place] [address] China Garvey [facility] [address] [place] [phone] RE: Follow Up/Update Social History Tobacco Use Types Packs/Day Years [...] Sex Assigned at Female 06/24/2024 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 documented in this encounter Plan of Treatment Not on file documented as of this encounter Visit Diagnoses Not on filedocumented in this encounter Additional Health Concerns Infection Onset Date Last Indicated Resolved Time COVID-19 Rule Out 06/10/2024 06/10/2024 06/12/2024 9:38 AM SHARE DAIRY FARMER COVID-19 Rule Out 06/23/2024 06/23/2024 06/23/2024 10:40 AM SHARE DAIRY FARMER COVID-19 Rule Out 06/24/2024 06/24/2024 06/24/2024 2:57 PM SHARE DAIRY FARMER Assessment Noted Time PHQ-9 Depression Total Score: 0 11/19/19 21 3:32 PM CDT documented as of this encounter Care Teams Studio Associate Relationship Specialty Start Date End Date China Garvey FNP [address] [place] [address] [place] [address] PCP - General Nurse Practitioner Family 08/18/18 documented as of this encounter
--- OUTSIDE RECORDS SUMMARY | 2025-01-21 01:14 | XMS_ITS | Encounter Summary ---
Author Organization [facility] Address [address] [place] [address] Care Team Providers Care Tire Repair Mechanic Name Role Phone China Garvey [facility] Primary Care Provider [phone] Encounter Details Date Type Department Care Team (Late st Contact Info) Description 10/07/2019 Qualisteot Message Enc [facility] [address] [place] [address] China Garvey [facility] [address] [place] [phone] RE: Follow Up/Update Social History Tobacco Use [...] Sex Assigned at Female 06/24/2024 1:29 PM RECORDING STUDIO INTERN Legal Sex Female 7:54 PM CDT Gender Identity Not on file Sexual Orientation Not on file documented as of this encounter Plan of Treatment Not on file documented as of this encounter Visit Diagnoses Not on filedocumented in this encounter Additional Health Concerns Infection Onset Date Last Indicated Resolved Time COVID-19 Rule Out 06/10/2024 06/10/2024 06/12/2024 9:38 AM RECORDING STUDIO INTERN COVID-19 Rule Out 06/23/2024 06/23/2024 06/23/2024 10:40 AM RECORDING STUDIO INTERN COVID-19 Rule Out 06/24/2024 06/24/2024 06/24/2024 2:57 PM RECORDING STUDIO INTERN Assessment Noted Time PHQ-9 Depression Total Score: 10 019 12:51 PM CDT documented as of this encounter Care Teams Tire Repair Mechanic Relationship Specialty Start Date End Date China Garvey FNP [address] [place] [address] [place] [address] PCP - General Nurse Practitioner Family 08/18/18 documented as of this encounter
--- OUTSIDE RECORDS SUMMARY | 2025-01-21 01:14 | XMS_ITS | Encounter Summary ---
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 documented in this encounter Plan of Treatment Not on file documented as of this encounter Visit Diagnoses Not on filedocumented in this encounter Additional Health Concerns Infection Onset Date Last Indicated Resolved Time COVID-19 Rule Out 06/10/2024 06/10/2024 06/12/2024 9:38 AM CAMP HOUSEKEEPER COVID-19 Rule Out 06/23/2024 06/23/2024 06/23/2024 10:40 AM CAMP HOUSEKEEPER COVID-19 Rule Out 06/24/2024 06/24/2024 06/24/2024 2:57 PM CAMP HOUSEKEEPER Assessment Noted Time PHQ-9 Depression Total Score: 10 019 12:51 PM CDT documented as of this encounter Care Teams Sign Poster Relationship Specialty Start Date End Date China Garvey FNP [address] [place] [address] [place] [address] PCP - General Nurse Practitioner Family 08/18/18 documented as of this encounter
--- OUTSIDE RECORDS SUMMARY | 2025-01-21 01:14 | XMS_ITS | Clinical Summary ---
Author Organization [address] Address [address] [place] [address] Care Team Providers Care X Ray Operator Name Role Phone China Garvey NP Primary Care Provider [phone] Allergies Active Allergy Reactions Criticality Noted Date Comments Codeine Rash Medium 09/12/2011 Penicillins Rash Medium 09/12/2011 Medications Auvelity 45-105 mg tablet, IR & ER, biphasic Take 1 tablet by mouth 2 (two) times a day 4 Active escitalopram (LEXAPRO) 5 mg tablet Take 1 tablet (5 mg total) by mouth daily 4 Active estradiol-norethin drone (ACTIVELLA) 1-0.5 mg per tablet Take 1 tablet by mouth daily 4 Active levothyroxine (SYNTHROID) 25 mcg tablet Take 1 tablet (25 mcg total) by mouth liquid chlorine operator before breakfast 4 Active ondansetron ODT (ZOFRAN-ODT) 4 mg disintegrating tablet Take 1 tablet (4 mg total) by mouth every 12 (twelve) hours as needed 4 Active pramipexole (MIRAPEX) 0.25 mg tablet Take 3 tablets (0.75 mg total) by mouth 3 (three) times a day 2 Active traZODone (DESYREL) 50 mg tablet Take 1 tablet (50 mg total) by mouth daily 4 Active Trintellix 10 mg tablet 4 Active Trintellix 5 mg tablet 4 Active cyclobenzaprine (FLEXERIL) 10 mg tabletIndications: Mid-back pain, acute Take 1 tablet (10 mg total) by mouth 3 (three) times a day as needed for muscle spasms 30 tablet Active Active Problems No known active problems Social History Tobacco Use Types Packs/Day Years Used Date Smoking Tobacco: Never Assessed Personal Safety Answer Date Recorded Getting School Help Needed Not on file 11/23 Comments Unknown Sex and Gender Information Value Date Recorded Sex Assigned at Not on file Legal Sex Female 8:16 AM DAY CARE PROVIDER Gender Identity Not on file Sexual Orientation Not on file Last Filed Vital Signs Vital Sign Reading Time Taken Comments Blood Pressure 104/72 11/24/2023 8:37 AM CDT Pulse 72 11/24/2023 8:37 AM CDT Temperature 36.8 C (98.2 F) 11/24/2023 8:37 AM CDT Respiratory Rate 20 11/24/2023 8:37 AM CDT Oxygen Saturation 96% 11/24/2023 8:37 AM CDT Inhaled Oxygen Concentration - - Weight 71.2 kg (157 lb) 11/24/2023 8:37 AM CDT Height 167.6 cm (5' 6) 11/24/2023 8:37 AM CDT Body Mass Index 25.34 11/24/2023 8:37 AM CDT Plan of Treatment Health Maintenance Due Date Last Done Comments Cervical Cancer Screening 1968 Colon Cancer Screening-Colonoscopy 1968 Depression Screening 1968 Hepatitis C Screening 1968 Hepatitis B Screening 1986 Regular Well Visit/Exam 18-64 1986 Zoster Vaccine (1 of 2) 2018 Breast Cancer Screening-Mammogram 01/17/2021 01/18/2020, 01/18/2020 Covid-19 Vaccine (2024-2 6 season) 2025 04/24/2021, 06/15/2020, 05/18/2020 Influenza Vaccine (#1) 2025 03/20/2021 DTaP/Tdap/Td Vaccine (2 - Td or Tdap) 05/06/2032 05/06/2022 Pneumococcal vaccine <65 Aged Out No longer eligible based on patient's age to complete this topic [place] Care Teams X Ray Operator Relationship Specialty Start Date End Date China Garvey NP [address] [place] [address] PCP - General Pediatrics 11/24/23
--- OUTSIDE RECORDS SUMMARY | 2025-01-21 01:14 | XMS_ITS | Encounter Summary ---
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 Legal Sex Female 7:54 PM CDT Gender Identity Not on file Sexual Orientation Not on file documented as of this encounter Plan of Treatment Not on file documented as of this encounter Visit Diagnoses Not on filedocumented in this encounter Additional Health Concerns Infection Onset Date Last Indicated Resolved Time COVID-19 Rule Out 06/10/2024 06/10/2024 06/12/2024 9:38 AM PASTORAL COUNSELOR COVID-19 Rule Out 06/23/2024 06/23/2024 06/23/2024 10:40 AM PASTORAL COUNSELOR COVID-19 Rule Out 06/24/2024 06/24/2024 06/24/2024 2:57 PM PASTORAL COUNSELOR Assessment Noted Time PHQ-9 Depression Total Score: 0 11/19/19 21 3:32 PM CDT documented as of this encounter Care Teams Grain Picker Relationship Specialty Start Date End Date China Garvey FNP [address] [place] [address] [place] [address] PCP - General Nurse Practitioner Family 08/18/18 documented as of this encounter
--- OUTSIDE RECORDS SUMMARY | 2025-01-21 01:14 | XMS_ITS | Encounter Summary ---
Author Organization [facility] Address [address] [place] [address] Care Team Providers Care Cp Bleacher Operator Name Role Phone China Garvey [facility] Primary Care Provider [phone] Encounter Details Date Type Department Care Team (Late st Contact Info) Description 04/14/2019 Organic To Go Message Enc [facility] [address] [place] [address] China Garvey [facility] [address] [place] [phone] RE: Medication Questions Social History Tobacco Use [...] Sex Assigned at Female 06/24/2024 1:29 PM LEACHER Legal Sex Female 7:54 PM CDT Gender Identity Not on file Sexual Orientation Not on file documented as of this encounter Progress Notes * Opal Gorman LPN - 04/14/2019 4:41 PM CST Please review. HER documented in this encounter Plan of Treatment Not on file documented as of this encounter Visit Diagnoses Not on filedocumented in this encounter Additional Health Concerns Infection Onset Date Last Indicated Resolved Time COVID-19 Rule Out 06/10/2024 06/10/2024 06/12/2024 9:38 AM LEACHER COVID-19 Rule Out 06/23/2024 06/23/2024 06/23/2024 10:40 AM LEACHER COVID-19 Rule Out 06/24/2024 06/24/2024 06/24/2024 2:57 PM LEACHER Assessment Noted Time PHQ-9 Depression Total Score: 10 019 12:51 PM CDT documented as of this encounter Care Teams Cp Bleacher Operator Relationship Specialty Start Date End Date China Garvey FNP [address] [place] [address] [place] [address] PCP - General Nurse Practitioner Family 08/18/18 documented as of this encounter
--- OUTSIDE RECORDS SUMMARY | 2025-01-21 01:14 | XMS_ITS | Patient Health Record ---
Author Organization [facility] [employer] Address [address] [facility] [address] [place] [address] Care Team Providers Care Tube Room Supervisor Name Role Phone China Bee Primary Care Provider Jairo Lassiter Unavailable [phone] Allergies Allergen (clinical drug ingredient) Drug/Non Drug Allergy documented on EMR Reaction Allergy Type Onset Date Status codeine Codeine Unknown Drug Allergy 09/11/2023 Active Substance with penicillin structure and antibacterial mechanism of action (substance) Penicillins Unknown Drug Allergy 09/11/2023 Active Results Component Value Reference Range Notes UDT Reviewed date:09/25/2024 12:17:19 PM Interpretation: Performing Lab: Notes/Report: THC N 0 - 50 ng/ml Cocaine N 0 - 300 ng/ml Amphetamine N 0 - 1000 ng/ml Buprenorphine (BUP) N 0 - 10 ng/ml Secobarbital (Bar) N 0 - 300 ng/ml Oxazepam (BZO) N 0 - 300 ng/ml 2-knoshhgekf-3,6-izcocqel-8,3-diphenylpyrrolidine (ROSSY P) N 0 - 300 ng/ml Methamphetamine (MET) N 0 - 1000 ng/ml Methylenedioxymethamphetamine (MDMA) N 0 - 500 ng/ml Morphine (MOP 300/[id number]) N 0 - 300 ng/ml Methadone (MTD) N 0 - 300 ng/ml Phencyclidine (PCP) N 0 - 25 ng/ml Nortriptyline (TCA) N 0 - 1000 ng/ml Oxycodone N 0 - 300 ng/ml x N 0 - 300 ng/ml Reason For Referral No Information Medications Medication SIG (Take, Route, Frequency, Duration) Notes Start Date End Date Status Nitrofurantoin Monohyd Macro 100 MG Capsule Oral 09/11/2023 Active Prempro 0.3-1.5 mg Tablet Oral 09/11/2023 Active Pramipexole Dihydrochloride 0.25 MG Tablet Oral 09/11/2023 Active traZODone HCl 50 MG Tablet 1 tablet at bedtime Oral Once a day; Duration: 90 days Not-Taking Estradiol-Norethindro ne Acet 1-0.5 MG Tablet Oral 09/11/2023 Not-Taking traZODone HCl 50 MG Tablet 1 tablet at bedtime Oral Once a day As needed 12/25/2024 Active Escitalopram Oxalate 10 MG Tablet 1 tablet Orally Once a day; Duration: 30 days 12/25/2024 Active Methylphenidate HCl ER (LA) 30 MG Capsule Extended Release 24 Hour 1 capsule in the morning Oral Once a day; Duration: 30 days dose change 12/25/2024 Active Auvelity 45-105 MG Tablet Extended Release 1 tablet Oral twice a day; Duration: 30 days *Reorder from [employer] for eRx and Interaction Alerts* 12/25/2024 Active Escitalopram Oxalate 10 MG Tablet 1 tablet Orally Once a day; Duration: 30 days Not-Taking Levothyroxine Sodium 25 MCG Tablet Oral 09/11/2023 Active Auvelity 45-105 MG Tablet Extended Release 1 tablet Oral twice a day; Duration: 30 days 07/06/2024 Not-Taking Social History Tobacco Use: Social History Observation Description Date Details (start date - stop date) Never Smoker NA - NA Sex Assigned At : Social History Observation Description Sex Assigned At Female Social History Miscellaneous: Social Info Question Answer Notes Advance Care Planning Are you your own decision-maker Yes Do you have Power of Roll Press Operator for Health or [facility]? No Tobacco Use: Social Info Question Answer Notes Tobacco Control (Standard) Tobacco use: Nonsmoker Additional Details Category Social Info Options Details Migrated Social History Migrated Social History Alcohol Intake: Occasional 06/18/2023,Tobacco Years: Never smoker 06/18/2023 Problems Problem Type SNOMED Code ICD Code Onset Dates Problem Status W/U Status Risk Notes Problem Moderate recurrent major depression (22810495) Major depressive disorder, recurrent, moderate (F33.1) Active confirmed Problem Severe recurrent major depression without psychotic features (63346971) Major depressive disorder, recurrent severe without psychotic features (F33.2) Active confirmed Problem Generalized anxiety disorder (14968275) Generalized anxiety disorder (F41.1) 4 Active confirmed Problem Insomnia disorder related to another mental disorder (35434868) Insomnia due to other mental disorder (F51.05) 4 Active confirmed Vital Signs Heart Rate 62 /min 12/25/2024 1 Height-cm 165.1 cm 12/25/2024 1 Blood pressure diastolic 63 mm Hg 12/25/2024 1 Weight-kg 64.32 kg 12/25/2024 1 Height 65.00 in 12/25/2024 1 Blood pressure systolic 95 mm Hg 12/25/2024 1 Weight 141.8 lbs 12/25/2024 1 BMI 23.59 kg/m2 12/25/2024 1 Encounters Encounter Location Date Provider Diagnosis [facility] [employer] [facility] [address] [place] [address] 06/30/2024 Jairo Martinez Major depressive disorder, recurrent, moderate F33.1 [facility] [address] [place] [address] 07/07/2024 Jairo Martinez Major depressive disorder, recurrent severe without psychotic features F33.2 [facility] [address] [place] [address] 04/09/2024 Jairo Martinez Major depressive disorder, recurrent, moderate F33.1 [facility] [address] [place] [address] 04/22/2024 Jairo Delucaoza [facility], [facility] [address] [place] [address] 04/22[facility]20[facility], [facility] [address] [place] [address] 04/24/2024 Jairo Delucaoza [facility], [facility] [address] [place] [address] 04/28/2024 Jairo Martinez [facility], [facility] [address] [place] [address] 06/02/2024 Jairo Martinez Major depressive disorder, recurrent severe without psychotic features F33.2 [facility], [facility] [address] [place] [address] 06/08/2024 Jairo Martinez [facility], [facility] [address] [place] [address] 06/09/2024 Jairo Martinez [facility], [facility] [address] [place] [address] 06/10/2024 Jairo Martinez [facility], [facility] [address] [place] [address] 06/11/2024 Jairo Martinez Major depressive disorder, recurrent severe without psychotic features F33.2 [facility], [facility] [address] [place] [address] 06/11/2024 Jairo Martinez Major depressive disorder, recurrent severe without psychotic features F33.2 [facility], [facility] [address] [place] [address] 07/08/2024 Jairo Martinez [facility], [facility] [address] [place] [address] 07/08/2024 Jairo Martinez [facility], [facility] [address] [place] [address] 09/09/2024 Jairo Martinez Major depressive disorder, recurrent severe without psychotic features F33.2 [facility], [facility] [address] [place] [address] 11/03/2024 Jairo Martinez Major depressive disorder, recurrent severe without psychotic features F33.2 [facility], [facility] [address] [place] [address] 11/03/2024 Jairo Martinez Major depressive disorder, recurrent severe without psychotic features F33.2 [facility], [facility] [address] [place] [address] 11/04/2024 Jairo Martinez Major depressive disorder, recurrent severe without psychotic features F33.2 [facility], [facility] [address] [place] [address] 11/09/2024 Jairo Martinez [facility], [facility] [address] [place] [address] 03/27/2024 Jairo Martinez Generalized anxiety disorder F41.1 ; Insomnia due to other mental disorder F51.05 and Major depressive disorder, recurrent severe without psychotic features F33.2 [facility] [employer] [address] [place] [address] 04/30/2024 Jairo Andrewa Generalized anxiety disorder F41.1 ; Insomnia due to other mental disorder F51.05 and Major depressive disorder, recurrent severe without psychotic features F33.2 [facility] [employer] [place] [facility] [address] [place] [address] 09/24/2024 Jairo Andrewa Major depressive disorder, recurrent severe without psychotic features F33.2 ; Generalized anxiety disorder F41.1 and Insomnia due to other mental disorder F51.05 [facility] [employer] [place] [facility] [address] [place] [address] 12/25/2024 Jairo Andrewa Major depressive disorder, recurrent severe without psychotic features F33.2 ; Generalized anxiety disorder F41.1 and Insomnia due to other mental disorder F51.05 Assessments Encounter Date Diagnosis (ICD Code) Assessment Notes Treatment Notes Treatment Clinical Notes Section Notes 11/04/2024 Major depressive disorder, recurrent severe without psychotic features (ICD-10 - F33.2) 11/03/2024 Major depressive disorder, recurrent severe without psychotic features (ICD-10 - F33.2) 11/03/2024 Major depressive disorder, recurrent severe without psychotic features (ICD-10 - F33.2) 09/24/2024 Major depressive disorder, recurrent severe without psychotic features (ICD-10 - F33.2) 09/09/2024 Major depressive disorder, recurrent severe without psychotic features (ICD-10 - F33.2) 07/07/2024 Major depressive disorder, recurrent severe without psychotic features (ICD-10 - F33.2) 06/11/2024 Major depressive disorder, recurrent severe without psychotic features (ICD-10 - F33.2) 06/11/2024 Major depressive disorder, recurrent severe without psychotic features (ICD-10 - F33.2) 12/25/2024 Major depressive disorder, recurrent severe without psychotic features (ICD-10 - F33.2) 06/02/2024 Major depressive disorder, recurrent severe without psychotic features (ICD-10 - F33.2) 04/30/2024 Generalized anxiety disorder (ICD-10 - F41.1) 1. ADHD: - Patient reports minimal improvement with Ritalin LA 10 mg, but noticed a difference when they stopped taking it. - Patient tolerated the increase to 20 mg without side effects and reported some improvement in motivation and energy. Plan: - Increase Ritalin LA to 30 mg daily for better symptom control. - Follow up in one month to assess response to the increased dose. 2. Anxiety: - Patient reports ongoing anxiety but did not provide specific details during the visit. Plan: - Continue monitoring anxiety levels during follow-up visits. - Encourage the patient to discuss any concerns or worsening symptoms. 3. Insomnia: - Patient is taking trazodone for insomnia and reports adequate sleep. Plan: - Continue trazodone as needed for insomnia. - Monitor for any changes in sleep patterns or side effects. 4. Depression: - Patient is currently on escitalopram and Auvelity. Plan: - Continue current medications for depression. - Discussed potential future options such as Spravato or TMS if needed. - Monitor for any changes in mood or suicidal thoughts during follow-up visits. 5. Work-related stress: - Patient reports increased work demands and stress. Plan: - Encourage the patient to utilize stress management techniques and seek support as needed. - Monitor the impact of work stress on mental health during follow-up visits. 6. Follow-up: - Schedule a follow-up appointment in one month to assess the patient's response to the increased Ritalin LA dose and overall mental health status. 04/09/2024 Major depressive disorder, recurrent, moderate (ICD-10 - F33.1) 03/27/2024 Generalized anxiety disorder (ICD-10 - F41.1) 1. Major Depressive Disorder: - Patient reports feeling better with current medications but still experiencing flatness, lack of motivation, and some anxiety. - Continue Auvelity 45mg 105mg twice daily and Lexapro 10 mg daily. Plan: - Consider increasing Lexapro dosage if no improvement in symptoms. 2. Anxiety: - Patient reports increased anxiety in the past two weeks due to external stressors. Plan: - Monitor anxiety levels and consider adjusting treatment if symptoms persist or worsen. 3. Fatigue and lack of motivation: Plan: - Add long-acting methylphenidate 10 mg daily in the morning for a two-week trial to address fatigue and lack of motivation. - Patient to contact the provider through the patient portal as the trial period approaches its end to discuss the effectiveness of the medication. 4. Treatment-resista nt depression options: Plan: - Discussed Spravato (esketamine nasal spray) as a potential treatment option. Patient to consider transportation arrangements if interested in pursuing this treatment. - Discussed Transcranial Magnetic Stimulation (TMS) as another potential treatment option. Patient to review information on the clinic's website and consider this non-invasive treatment if other options are not effective. Follow-up: - Schedule a follow-up appointment in 2-4 weeks to assess the patient's response to the added methylphenidate and discuss any further adjustments to the treatment plan. - Encourage the patient to reach out through the patient portal with any concerns or updates on their condition. 03/27/2024 Insomnia due to other mental disorder (ICD-10 - F51.05) trazodone 50mg hs prn 1. Major Depressive Disorder: - Patient reports feeling better with current medications but still experiencing flatness, lack of motivation, and some anxiety. - Continue Auvelity 45mg 105mg twice daily and Lexapro 10 mg daily. Plan: - Consider increasing Lexapro dosage if no improvement in symptoms. 2. Anxiety: - Patient reports increased anxiety in the past two weeks due to external stressors. Plan: - Monitor anxiety levels and consider adjusting treatment if symptoms persist or worsen. 3. Fatigue and lack of motivation: Plan: - Add long-acting methylphenidate 10 mg daily in the morning for a two-week trial to address fatigue and lack of motivation. - Patient to contact the provider through the patient portal as the trial period approaches its end to discuss the effectiveness of the medication. 4. Treatment-resista nt depression options: Plan: - Discussed Spravato (esketamine nasal spray) as a potential treatment option. Patient to consider transportation arrangements if interested in pursuing this treatment. - Discussed Transcranial Magnetic Stimulation (TMS) as another potential treatment option. Patient to review information on the clinic's website and consider this non-invasive treatment if other options are not effective. Follow-up: - Schedule a follow-up appointment in 2-4 weeks to assess the patient's response to the added methylphenidate and discuss any further adjustments to the treatment plan. - Encourage the patient to reach out through the patient portal with any concerns or updates on their condition. 04/30/2024 Insomnia due to other mental disorder (ICD-10 - F51.05) trazodone 50mg hs prn 1. ADHD: - Patient reports minimal improvement with Ritalin LA 10 mg, but noticed a difference when they stopped taking it. - Patient tolerated the increase to 20 mg without side effects and reported some improvement in motivation and energy. Plan: - Increase Ritalin LA to 30 mg daily for better symptom control. - Follow up in one month to assess response to the increased dose. 2. Anxiety: - Patient reports ongoing anxiety but did not provide specific details during the visit. Plan: - Continue monitoring anxiety levels during follow-up visits. - Encourage the patient to discuss any concerns or worsening symptoms. 3. Insomnia: - Patient is taking trazodone for insomnia and reports adequate sleep. Plan: - Continue trazodone as needed for insomnia. - Monitor for any changes in sleep patterns or side effects. 4. Depression: - Patient is currently on escitalopram and Auvelity. Plan: - Continue current medications for depression. - Discussed potential future options such as Spravato or TMS if needed. - Monitor for any changes in mood or suicidal thoughts during follow-up visits. 5. Work-related stress: - Patient reports increased work demands and stress. Plan: - Encourage the patient to utilize stress management techniques and seek support as needed. - Monitor the impact of work stress on mental health during follow-up visits. 6. Follow-up: - Schedule a follow-up appointment in one month to assess the patient's response to the increased Ritalin LA dose and overall mental health status. 12/25/2024 Generalized anxiety disorder (ICD-10 - F41.1) 06/30/2024 Major depressive disorder, recurrent, moderate (ICD-10 - F33.1) Electronic Prior Authorization was requested for Auvelity 45-105 MG Tablet Extended Release. Provider can order medication once approval received. 09/24/2024 Generalized anxiety disorder (ICD-10 - F41.1) 09/24/2024 Insomnia due to other mental disorder (ICD-10 - F51.05) trazodone 50mg hs prn 12/25/2024 Insomnia due to other mental disorder (ICD-10 - F51.05) trazodone 50mg hs prn 04/30/2024 Major depressive disorder, recurrent severe without psychotic features (ICD-10 - F33.2) 1. ADHD: - Patient reports minimal improvement with Ritalin LA 10 mg, but noticed a difference when they stopped taking it. - Patient tolerated the increase to 20 mg without side effects and reported some improvement in motivation and energy. Plan: - Increase Ritalin LA to 30 mg daily for better symptom control. - Follow up in one month to assess response to the increased dose. 2. Anxiety: - Patient reports ongoing anxiety but did not provide specific details during the visit. Plan: - Continue monitoring anxiety levels during follow-up visits. - Encourage the patient to discuss any concerns or worsening symptoms. 3. Insomnia: - Patient is taking trazodone for insomnia and reports adequate sleep. Plan: - Continue trazodone as needed for insomnia. - Monitor for any changes in sleep patterns or side effects. 4. Depression: - Patient is currently on escitalopram and Auvelity. Plan: - Continue current medications for depression. - Discussed potential future options such as Spravato or TMS if needed. - Monitor for any changes in mood or suicidal thoughts during follow-up visits. 5. Work-related stress: - Patient reports increased work demands and stress. Plan: - Encourage the patient to utilize stress management techniques and seek support as needed. - Monitor the impact of work stress on mental health during follow-up visits. 6. Follow-up: - Schedule a follow-up appointment in one month to assess the patient's response to the increased Ritalin LA dose and overall mental health status. 03/27/2024 Major depressive disorder, recurrent severe without psychotic features (ICD-10 - F33.2) 1. Major Depressive Disorder: - Patient reports feeling better with current medications but still experiencing flatness, lack of motivation, and some anxiety. - Continue Auvelity 45mg 105mg twice daily and Lexapro 10 mg daily. Plan: - Consider increasing Lexapro dosage if no improvement in symptoms. 2. Anxiety: - Patient reports increased anxiety in the past two weeks due to external stressors. Plan: - Monitor anxiety levels and consider adjusting treatment if symptoms persist or worsen. 3. Fatigue and lack of motivation: Plan: - Add long-acting methylphenidate 10 mg daily in the morning for a two-week trial to address fatigue and lack of motivation. - Patient to contact the provider through the patient portal as the trial period approaches its end to discuss the effectiveness of the medication. 4. Treatment-resista nt depression options: Plan: - Discussed Spravato (esketamine nasal spray) as a potential treatment option. Patient to consider transportation arrangements if interested in pursuing this treatment. - Discussed Transcranial Magnetic Stimulation (TMS) as another potential treatment option. Patient to review information on the clinic's website and consider this non-invasive treatment if other options are not effective. Follow-up: - Schedule a follow-up appointment in 2-4 weeks to assess the patient's response to the added methylphenidate and discuss any further adjustments to the treatment plan. - Encourage the patient to reach out through the patient portal with any concerns or updates on their condition. 09/24/2024 Khadijah Rubin, a patient with a history of depression and ADHD, presents with recent exacerbation of depressive symptoms and difficulty maintaining her exercise routine. Major Depressive Disorder Assessment: Patient reports experiencing a couple rough weeks recently, indicating a potential exacerbation of depressive symptoms. Current treatment includes Auvelity twice daily, escitalopram 10 mg daily, and trazodone. Patient is engaged in therapy but hasn't seen her therapist since the recent symptom exacerbation. She expresses difficulty with motivation, particularly in maintaining her exercise routine, which she typically enjoys. The patient's depression appears to be treatment-resis tant, given the multiple medication regimen and ongoing symptoms. Plan: - Continue Auvelity twice daily - Continue escitalopram 10 mg PO daily - Continue trazodone - Consider Spravato or Transcranial Magnetic Stimulation (TMS) as future treatment options for treatment-resis tant depression - Follow up in one month to assess response to medication changes Attention Deficit Hyperactivity Disorder (ADHD) Assessment: Patient is currently taking Ritalin LA 30 mg daily for ADHD management. The medication appears to be helpful, but the duration of effect may be suboptimal. Plan: - Increase Ritalin LA to 40 mg PO daily - Assess for side effects and efficacy of increased dose at follow-up the note is transcribed using speech recognition software. It is a reflection of a visit with the patient. It might have some inaccuracy, including medication names and transcribing errors, though efforts have been made to correct them. 12/25/2024 Khadijah Rubin presents for medication management of depression and ADHD, reporting overall improvement but experiencing side effects from methylphenidate. Attention Deficit Hyperactivity Disorder (ADHD) Assessment: Patient reports positive effects from methylphenidate on energy levels and overall functioning. However, side effects including dry mouth and teeth grinding have become bothersome at the current dose. Patient requests to return to a lower dose of 30 mg, which previously did not cause these side effects. Plan: - Decrease methylphenidate to 30 mg - Continue Auvelity twice daily Depression Assessment: Patient reports good mood and denies current depressive symptoms. Current medication regimen appears to be effective in managing depression. Plan: - Continue escitalopram 10 mg daily - Continue trazodone as needed for sleep the note is transcribed using speech recognition software. It is a reflection of a visit with the patient. It might have some inaccuracy, including medication names and transcribing errors, though efforts have been made to correct them. Plan Of Treatment Next Appt Details Provider Name:Jairo Tay lazcano, 03/29/2025 08:45:00 AM, [address], [address], [place], [address], Insurance Providers Payer Name Payer Address Payer Phone Subscriber Number Group Number Insured Name Patient Relationship to Insured Coverage Start Date Coverage End Date [facility] [address] [place] [address] [id number] MERCED RUBIN Self - patient is the insured Medical (General) History Medical History History ICD Code Problems: Celiac disease Generalized anxiety disorder Insomnia disorder related to another men robyn disorder Moderate recurrent major depression Severe recurrent major depression withou t psychotic features , Imported from Highlights: On 10/08/2023 patient experienced nausea and vomiting, seen by DENNY Hawk at [facility]. On 11/18/2023 patient was seen by MICHELLE Irby at [facility] for acute cystitis with hematuria and suspected UTI. On 11/24/2023 patient presented with dysuria and mid-back pain, seen by Nadia Munoz NP at [facility]. On 12/02/2023 patient was seen by DENNY Rick at [facility] for rib pain on the left side. On 12/02/2023 patient was also seen by Sarah Black MD at [facility] [address] [facility] for iron deficiency anemia refractory to iron therapy. On 01/28/2024 patient was seen by MICHELLE Irby at [facility] for abdominal discomfort and presumed infectious diarrhea. On 02/14/2024 patient was seen by MICHELLE John at [facility] for diarrhea of infectious origin. On 03/02/2024 patient was seen by Sarah Black MD at [facility] [address] for iron deficiency anemia refractory to iron therapy and thrombocytosis. On 06/10/2024 patient was seen by DENNY Sellers at [facility] for acquired hypothyroidism, acute cough, celiac disease, community-acquired pneumonia, generalized anxiety disorder, iron deficiency anemia, persistent depressive disorder, and restless legs syndrome. On 06/23/2024 patient was seen by DENNY Sellers at [facility] for acute cough and acute viral bronchitis. On 06/24/2024 patient was seen by DENNY Sellers at [facility] for acute bronchitis, acute cough, and leukocytosis. On 08/18/2024 patient had an emergency visit with Diego Denis MD at [facility] for strain of neck muscle. Surgical History Surgery Date(Month/Year) Other 06/06/2022
--- OUTSIDE RECORDS SUMMARY | 2025-01-21 01:14 | XMS_ITS | Encounter Summary ---
Author Organization [facility] Address [address] [place] [address] Care Team Providers Care Tool Design Checker Name Role Phone China Garvey [facility] Primary Care Provider Encounter Details Date Type Department Care Team (Late st Contact Info) Description 06/23/2024 Owl biomedicalt Message Enc [facility] [address] [place] [phone] China Garvey [facility] [address] [place] [phone] Pneumonia Social History Tobacco Use Types Packs/Day Years [...] Sex Assigned at Female 06/24/2024 1:29 PM LOT ATTENDANT Legal Sex Female 7:54 PM CDT Gender Identity Not on file Sexual Orientation Not on file documented as of this encounter Plan of Treatment Not on file documented as of this encounter Visit Diagnoses Not on filedocumented in this encounter Additional Health Concerns Infection Onset Date Last Indicated Resolved Time COVID-19 Rule Out 06/23/2024 06/23/2024 06/23/2024 10:40 AM LOT ATTENDANT COVID-19 Rule Out 06/24/2024 06/24/2024 06/24/2024 2:57 PM LOT ATTENDANT Assessment Noted Time PHQ-9 Depression Total Score: 8 08/07/19 24 5:34 PM CDT documented as of this encounter Care Teams Tool Design Checker Relationship Specialty Start Date End Date China Garvey FNP [address] [place] [address] [place] [address] PCP - General Nurse Practitioner Family 08/18/18 documented as of this encounter
--- OUTSIDE RECORDS SUMMARY | 2025-01-21 01:14 | XMS_ITS | Encounter Summary ---
Author Organization [facility] Address [address] [place] [address] Care Team Providers Care Technical Recruiter Name Role Phone China Garvey [facility] Primary Care Provider [phone] Encounter Details Date Type Department Care Team (Late st Contact Info) Description 10/20/[address] [facility] [address] [place] [address] [facility] [address] [place] [phone] RE: Referral Request Social History Tobacco Use Types Packs/Day Years [...] Assigned at Female 06/24/2024 1:29 PM DIRECTOR OF GLOBAL TALENT Legal Sex Female 7:54 PM CDT Gender [...] Out 06/10/2024 06/10/2024 06/12/2024 9:38 AM DIRECTOR OF GLOBAL TALENT COVID-19 Rule Out 06/23/2024 06/23/2024 06/23/2024 10:40 AM DIRECTOR OF GLOBAL TALENT COVID-19 Rule Out 06/24/2024 06/24/2024 06/24/2024 2:57 PM DIRECTOR OF GLOBAL TALENT Assessment Noted Time PHQ-9 Depression Total Score: 10 019 12:51 PM CDT documented as of this encounter Care Teams Technical Recruiter Relationship Specialty Start Date End Date China Garvey FNP [address] [place] [address] [place] [address] PCP - General Nurse Practitioner Family 08/18/18 documented as of this encounter
[2025-01-21] MEDS: LACTATED RINGERS 1,000 ML 30 ML IV CONT ×2 (08:45→11:45)
[2025-01-21] MEDS: KETOROLAC 15 MG/ML VIAL (*BKC) IV PUSH (09:08)
[2025-01-21] MEDS: ACETAMINOPHEN 500 MG TABLET 1000 MG PO (09:08)
--- NOTE | 2025-01-21 09:51 | WPDANESEPPF ---
Anes - Initial Pre Proc Eval Procedure: Operation Date: 01/21/25 10:30 Proposed Procedures p Right Knee Arthroscopy, Partial Medial Meniscectomy - Rusty José MD Date/Time: 01/21/25 09:51 Surgeon: Rusty José MD Pre Op Diagnosis: rt knee medial meniscus tear Patient Data Age: 54 Gender: F Height: 1.65 m Weight: 62.1 kg Last Vital Signs Temp 97.5 F L 01/21/25 09:09 Pulse 73 01/21/25 09:09 Resp 16 01/21/25 09:09 BP 98/61 L 01/21/25 09:09 Pulse Ox 100 01/21/25 09:09 O2 Del Method Room Air 01/21/25 09:09 Allergies Allergy/AdvReac Type Severity Reaction Status Date / Time codeine Allergy Mild Rash Verified 01/21/25 09:05 Penicillins Allergy Mild rash Verified 01/21/25 09:05 Home Medications ?Medication ?Instructions ?Recorded ?Confirmed ?Type pramipexole 0.25 mg tablet 0.25 mg PO TID 03/16/20 01/21/25 History dextromethorphan IR 45 1 tablet PO BID 07/31/23 01/12/25 History mg-bupropion ER 105 mg biphasic tablet (Auvelity) levothyroxine 25 mcg tablet 25 mcg PO DAILY 08/09/23 01/21/25 History escitalopram oxalate 10 mg tablet 10 mg PO DAILY 11/20/24 01/21/25 History celecoxib 100 mg capsule (Celebrex) 100 mg PO BID 01/06/25 01/21/25 History multivitamin (Daily Multi-Vitamin 1 tablet PO DAILY 01/12/25 01/21/25 History tablet) hydrocodone 5 mg-acetaminophen 325 1 - 2 tablet PO Q4-6H PRN pain #30 01/21/25 Rx mg tablet tabs Patient hx anesthesia problems: none Family hx anesthesia problems: none Results Review: All pre-operative results and documents have been reviewed as part of the pre-operative evaluation. [facility] Past Medical History Medical History PTSD (post-traumatic stress disorder) Depression Anxiety RLS (restless legs syndrome) Trigger thumb, right thumb Tear of medial meniscus of right knee BMI 23.0-23.9, adult Osteoarthritis of right knee Anemia Surgical History Surgical History History of tubal ligation History of bladder suspension procedure History of Bilateral carpal tunnel syndrome simultaneous bilateral carpal tunnel release July 02, 2022 H/O shoulder surgery right, 2017, Dr. Lazaro (closed humerus fx) Family History Family History Father Heart disease Grandparent Heart disease Cancer Social History Social History Smoking status: Never smoker Alcohol intake: never Substance use: never Substance use type: does not use Lack of Transportation: No Lack of Food: Never True Current Housing: I Have Housing Concerned About Future Housing: No Difficulty Paying Gas/Electric Bills: No Difficulty Paying for Meds: No Currently Unemployed: No Education: Trade/Vocational Certificate Difficulty w/ Childcare or Family Care: No Living arrangements: with family Occupation/Education: occupation 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 Hypothyroidism. Active, pt ran 5 K recently, no cp or sob. Informed Consent: The patient's anesthetic plan and its attendant risks and benefits were discussed with the patient/family/POA. Questions were solicited and answers provided to the satisfaction of the patient/family/POA.
--- NOTE | 2025-01-21 10:00 | WPDHPUPDATE1 ---
History and Physical Update Update Date/Time: 01/21/25 10:00 History and Physical has been reviewed, including an updated exam of the patient. There are NO changes in the patient's condition. Risks, benefits, and alternatives have been discussed and questions answered. Patient agrees to proceed with procedure.
[2025-01-21] MEDS: ceFAZolin 2 GM in SODIUM CHLORIDE 0.9% IV 50 ML 100 ML IVPB (10:34)
[2025-01-21] MEDS: BUPIVACAINE/EPINEPHRINE 0.5% 50 ML VIAL 30 ML INFILTRATE (10:57)
--- NOTE | 2025-01-21 14:43 | W.PM.PROC2 ---
Procedure Note - Detailed Date of Procedure 01/21/25 Pre-op Diagnosis Rt knee medial meniscus tear Post-op Diagnosis Same Procedure Performed Arthroscopic partial medial meniscectomy, right knee. Surgeon Rusty José MD Anesthesia General Findings Extensive complex tear of the posterior horn medial meniscus. Moderate areas of grade 2 chondromalacia. Medial femur chondromalacia grade 2, medial tibia grade 0. Lateral femur chondromalacia grade 0, lateral tibia grade 0. Patellar grade 0, trochlea grade 0. Description of Procedure The patient was identified and the surgical site confirmed and signed in the preoperative holding area. Antibiotics were started per protocol, and the patient was brought to the operative room and transferred to the OR table. A general anesthetic was administered. Supine position with the operative lower extremity position in the leg harrison after placement of a well padded tourniquet. The leg support was lowered and the contralateral limb was supported with a soft bolster. The knee was prepped and draped in the usual sterile fashion. A time-out was performed. The portal sites were marked and infiltrated with 0.5% Marcaine 20 mL. The limb was exsanguinated and the tourniquet inflated to 300 mL Hg. Standard inferolateral and inferomedial portals were established. Inflow was obtained with the saline pump. The camera was introduced. Diagnostic inspection of the joint was accomplished. The meniscus was debrided with the arthroscopic shaver and punches until stable. The radiofrequency probe was also used for further d?bridement. Gentle chondroplasty performed on the medial femoral condyle. The arthroscopic instruments were removed. The tourniquet released and wounds closed with subcutaneous 4-0 Monocryl absorbable suture. Steri strips and a sterile dressing were applied. A light elastic wrap was placed. The patient was extubated and brought to the recovery room in stable condition. Estimated Blood Loss 5 Drains No Complications No immediate complications Condition Stable Disposition PACU [facility] Billing Surgery - Charge Forward: Surgery Billing
== END 2025-01-21 13:30 | disposition home or self-care (01) ==
PROVIDERS: PCP Nurse Practitioner; Visit Provider Orthopaedic Surgery
PROC: (CPT 29870; principal; 2025-01-21 10:30)
DX: S83.231A Complex tear of medial meniscus, current injury, right knee, initial encounter (principal); M94.261 Chondromalacia, right knee; E03.9 Hypothyroidism, unspecified; G25.81 Restless legs syndrome; D64.9 Anemia, unspecified; M17.11 Unilateral primary osteoarthritis, right knee; F43.10 Post-traumatic stress disorder, unspecified; F32.A Depression, unspecified; F41.9 Anxiety disorder, unspecified; X58.XXXA Exposure to other specified factors, initial encounter; Z79.891 Long term (current) use of opiate analgesic; Z79.1 Long term (current) use of non-steroidal anti-inflammatories (NSAID); Z98.890 Other specified postprocedural states; Z98.51 Tubal ligation status; Z80.9 Family history of malignant neoplasm, unspecified; Z82.49 Family history of ischemic heart disease and other diseases of the circulatory system
CPT/HCPCS: 29881; J0690; A9270; J1100; J1885; J2003; J2250; J2405; J2704; J3010; J7120

== ENCOUNTER 2025-01-27 01:07 | Emergency (ER) | payer BC, SELFPAY ==
--- OUTSIDE RECORDS SUMMARY | 2024-11-04 04:30 | XMS_ITS ---
Author Organization [facility] [employer] [facility] Address [facility] [facility] [address] [facility] [address] [place] [address] Care Team Providers Care Metalsmith Apprentice Name Role Phone China Bee Primary Care Provider Jairo Lassiter Unavailable [phone] REASON FOR VISIT 1 month f/u Social History Sex Assigned At : Social History Observation Description Sex Assigned At Female Encounters Encounter Location Date Provider Diagnosis [facility] [employer] [place] [address] [facility] [address] [place] [address] 11/04/2024 Jairo Martinez Plan Of Treatment Next Appt Details Provider Name:Jairo lazcano, 03/29/2025 08:45:00 AM, [facility], [facility] [address], [place], [address], Progress Notes * MERCED MONACODOB: 9 (54 yo F)Acc No.[id number]:11/04/2024 Patient: MERCED BROWN Provider: MEETA JOHNSON :1970 A ge:53 Y S ex:Female Date:11/04/2024 Address:[address] [facility] Pcp:China SALEEM Subjective: * Chief Complaints: * 1 month f/u Billing Information: * Procedure Codes: * Electronic signature of MEETA Bassett on 01/27/2025 at 01:12 AM CDT Sign off status: Pending * Provider: MEETA JOHNSON Date: 0 11/04/2024 Generated for Grisel kennedy/Angle/Sarmad on: 0 01/27/2025 01:12 AM CDT
--- OUTSIDE RECORDS SUMMARY | 2024-11-26 04:00 | XMS_ITS ---
Author Organization [facility] Address [facility] [address] [address] Care Team Providers Care Analysis Or Research Safety Inspector Name Role Phone China Bee Primary Care Provider Jairo Lassiter Unavailable [phone] REASON FOR VISIT Depression Social History Sex Assigned At : Social History Observation Description Sex Assigned At Female Encounters Encounter Location Date Provider Diagnosis [facility] [employer] [place] [id number] [facility] [address] [address] 11/26/2024 Jairo Martinez Plan Of Treatment Next Appt Details Provider Name:Jairo lazcano, 03/29/2025 08:45:00 AM, [address], [facility] [address], [place], [address], Progress Notes * MERCED OMNACODOB: 9 (54 yo F)Acc No.[id number]:11/26/2024 Patient: MERCED BROWN Provider: MEETA JOHNSON :1970 A ge:53 Y S ex:Female Date:11/26/2024 Address:[address] [facility] Pcp:China SALEEM Subjective: * Chief Complaints: * D epression * Electronic signature of MEETA Bassett on 01/27/2025 at 01:11 AM CDT Sign off status: Pending * Provider: MEETA JOHNSON Date: 0 11/26/2024 Generated for Grisel kennedy/Angle/Sarmad on: 0 01/27/2025 01:11 AM CDT
--- OUTSIDE RECORDS SUMMARY | 2025-01-26 09:46 | XMS_ITS | Encounter Summary ---
Author Organization [facility] Address [address] [place] [address] Care Team Providers Care Telecommunications Officer Name Role Phone China Garvey [employer] Primary Care Provider [phone] Reason for Visit * Reason Comments Knee Pain * Physical Therapy (Routine) - Authorized Specialty Diagnoses / Procedures Referred By Luiz amador Referred To Contact PHYSICAL THERAPY / [facility] Physical Therapy Diagnoses Aftercare following joint replacement surgery Presence of unspecified artificial knee joint Procedures [place]y Javed [place] [address] [address] Phone: tel: fax: Sarwat Will, PT [address] [place] [address] Phone: tel: fax: Referral ID Status Reason Start Date Expiration Date Visits Requested Visits Authorized [id number] Authorized Physical Therapy 01/26/2025 05/05/2025 99 99 Encounter Details Date Type Department Care Team (Late st Contact Info) Description 01/26/2025 9:46 AM CDT Hospital Encounter [facility] Therapy [address] [address] Rusty José MD [address] [place] [address] Sarwat Will, PT [address] [place] [address] Knee Pain Social History Tobacco Use Types Packs/Day Years [...] Sex Assigned at Female 06/24/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 It started to bother her on Saturday and she ended up in the emergency room where she received a shot. Since then she has been able to stay ahead of it with her pain medication. She says it is feeling pretty stiff today. She is walking without any assistive devices. She has been utilizing ice at home, but says she didn't use much yesterday. 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 She also enjoys running and hopes to return to that as well. Past Treatment for Current Diagnosis: none Functional Deficits: working, walking, squatting, kneeling, exercise routine Prior Level of Function: running 5Ks PAIN Current Pain Level: 5/10 Lowest Pain Level: 5/10 Highest Pain Level: 10/10 Activities that Increase Pain: nothing specific; she hasn't been doing a lot so far Activities that Decrease Pain: medication Location and Description of Pain: medial aspect of knee REVIEW WITH PATIENT Medication Reviewed: Yes Diagnostics: MRI and x-ray Co-Morbidities: orthopedic problems Patient Stated goals for Therapy Get back to work and running OBJECTIVE OBSERVATION: Adela arrives to physical therapy ambulating without any assistive device Gait: decreased R knee flexion during swing, limited knee extension during stance, antalgic gait pattern, decreased cortes Posture: pt stands with R knee held in slight flexion PALPATION: Pain: pt reports tenderness with palpation along the medial aspect of her knee KNEE: ACTIVE ROM Knee AROM L Eval Date R Eval: Knee extension 0 deg 0 deg Knee flexion 130 deg 90 deg stiff PASSIVE ROM Knee PROM L Eval Date: R Eval: Knee extension WNL 0 deg Knee flexion WNL 105 deg COMMENTS: Strength: HIP STRENGTH L Eval R Eval Hip flexion 5/5 4/5 pain Hip abduction 5/5 5/5 Hip adduction 5/5 5/5 KNEE STRENGTH L Eval R Eval Knee flexion 5/5 4+/5 pain Knee extension 5/5 5/5 pain ANKLE STRENGTH L Eval R Eval Dorsiflexion 5/5 5/5 Plantarflexion 5/5 5/5 Flexibility: moderate B hamstring tightness Functional Scales: LEFS: 30/80 ASSESSMENT Adela Rubin presents with signs and symptoms consistent with s/p R partial medial meniscectomy on 01/21/25. She reports she is still having moderate pain, but it is decreasing. She is ambulating without any assistive device, but says her knee is feeling stiff. Her LEFS score of 30/80 indicates a significant level of self-perceived disability related to her knee. Objectively, she presents with impaired R LE strength, limited R knee AROM, gait impairments, and moderate B hamstring tightness. She will benefit from skilled PT to address her deficits. Problem list to be addressed: -Pain of R knee -Decreased R LE strength. -Decreased R knee range of motion. -Poor posture and body mechanics. -Decreased Physical Performance and activity tolerance. -Limited functional activities of working, walking, squatting, kneeling, and exercise routine. Prognosis: Patient is a good candidate for physical therapy. Good prognosis to achieve goals. PLAN Planned frequency and duration of treatment is 3/week x 4 weeks to achieve the above stated goals which were discussed with the patient. Treatment will include the following: Self -Care/Home Management - 94741, Neuromuscular Re-education - 78494, Gait Training - 23901, Therapeutic Exercise - 28327, Electrical Stimulation Unattended - 29621, Ultrasound - 77809, Vasopneumatic Device - 56934, Manual Therapy - 63536, and Hot/Cold Pack - 83449 GOALS Improved neuromuscular, balance, proprioceptive awareness for stability & reduction of risk forfuture injury Timeframe:prior to DC 2. Patient to achieve R Knee AROM equal to L Timeframe: prior to DC 3. Patient to achieve R Knee PROM equal to L Timeframe: 2 weeks 4. Patient to achieve R Knee/Hip/Ankle Strength: 5/5 MMT Timeframe: prior to DC 5. Patient to demonstrate normal active mobility without guarded movement patterns Timeframe: prior to DC 6. Patient to demonstrate normal gait pattern and report no limitation with walking during ADLs Timeframe: prior to DC 7. Patient to correctly demonstrate home exercises to be performed in conjunction with therapy program Timeframe: 2 weeks 8. Patient to decrease pain complaints with ADLs to <4/10 Timeframe: prior to DC 9. Patient will report significant functional improvement with ADLs Timeframe:prior to DC 10. Return to previous functional status for ADLs, recreational activities, or sports activities asidentified by patient Timeframe: prior to DC 11. Patient to report self perceived improvements evidenced by functional outcome score of > 60/80 on LEFS. Timeframe: prior to DC Therapist: SARWAT WILL PT Date: 01/26/25 Time: 9:56 AM Physician certification: I certify that the above physical therapy services are required, authorized, and reviewed. Provider Signature: Date: Time: Rusty José MD Patient Name: Adela Valdivia Scottie : 1970 * Sarwat Will PT - 01/26/2025 10:00 AM CDT Physical Therapy Visit Note: Patient Name: Adela Valdivia Scottie Diagnosis: S/p arthroscopic partial medial meniscectomy of right knee (primary encounter diagnosis) SUBJECTIVE Therapy Visit Total Approved Visits: 05/17 Therapy Plan of Care: therex, manual, neuro re-ed, gait, ice, vaso, IFC, self-care Current Therapy Orders: Eval and Treat Diagnosis: R knee medial meniscectomy Referring Provider: MD Blanca Tapia MD Visit: 02/05/25 Precautions: WBAT Date of Surgery/Weeks Post-Op: 01/21/25 Subjective Note: See eval Pain Current Location of Pain: R knee Current Pain Level: 5/10 OBJECTIVE Treatment provided today: Self -Care/Home Management - 00397 Other (Comments): HEP Therapeutic Exercise - 36182 Exercise: seated HS stretch Exercise: standing HR/TR/Hip ABD/EXT/July Exercise: LAQ Exercise: SLR Exercise: quad sets Exercise: heel slides AROM/AAROM Manual Therapy - 65893 Intervention: R knee PROM Intervention: B HS stretch Modalities Non-Timed Vasopneumatic Device - 20190: 10 minutes R knee post Cold Pack - 30387: 10 minutes R knee post Education Was Education Provided: Yes Topic: HEP Recipient: Patient Method: Demonstration, Verbal, Written, Return Demonstration Response: Demonstrates adequately, Verbalized understanding Barriers: None ASSESSMENT Assessment Note: See eval. Session finished with ice and vasocompression applied to R knee in sitting for comfort. No adverse effects noted PLAN Plan Next Visit Plan: Progress as tolerated per PT POC documented in this encounter Plan of Treatment Upcoming Encounters Date Type Department Care Team (Late st Contact Info) Description 01/27/2025 2:00 PM CDT Appointment [facility] [address] [facility] [place] [address] Rusty José MD [address] [place] [address] Sandy Colin PTA 01/29/2025 2:30 PM CDT Appointment [facility] [address] [facility] [place] [address] Rusty José MD [address] [address] Sandy Colin PTA documented as of this encounter Visit Diagnoses Diagnosis S/P arthroscopic partial medial meniscectomy of right knee- Primary documented in this encounter Additional Health Concerns Assessment Noted Time PHQ-9 Depression Total Score: 10 025 12:30 PM CDT documented as of this encounter Care Teams Telecommunications Officer Relationship Specialty Start Date End Date China Garvey FNP [address] [place] [address] [place] [address] PCP - General Nurse Practitioner Family 08/18/18 documented as of this encounter
--- OUTSIDE RECORDS SUMMARY | 2025-01-26 09:46 | XMS_ITS | Encounter Summary ---
Author Organization [facility] Address [address] [place] [address] Care Team Providers Care Ironworker Machine Operator Name Role Phone China Garvey HOME DEPOT REP Primary Care Provider [phone] Reason for Visit * Reason Comments Knee Pain * Physical Therapy (Routine) - Authorized Specialty Diagnoses / Procedures Referred By Luiz amador Referred To Contact PHYSICAL THERAPY / [facility] Physical Therapy Diagnoses Aftercare following joint replacement surgery Presence of unspecified artificial knee joint Procedures Rusty Javed MD [address] [address] Phone: tel: fax: Sarwat Will, PT [address] [place] [address] Phone: tel: fax: Referral ID Status Reason Start Date Expiration Date Visits Requested Visits Authorized [id number] Authorized Physical Therapy 01/26/2025 05/05/2025 99 99 Encounter Details Date Type Department Care Team (Late st Contact Info) Description 01/26/2025 9:46 AM CDT Hospital Encounter [facility] Therapy [address] [place] [address] Rusty José MD [address] [place] [address] Sarwat Will, PT [address] [place] [address] Knee Pain Social History Tobacco Use Types [...] Sex Assigned at Female 06/24/2024 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 [...] include the following: Self -Care/Home Management - 40900, Neuromuscular Re-education - 28922, Gait Training - 93931, Therapeutic Exercise - 15195, Electrical Stimulation Unattended - 93358, Ultrasound - 26702, Vasopneumatic Device - 93971, Manual Therapy - 38613, and Hot/Cold Pack - 00200 GOALS Improved neuromuscular, balance, proprioceptive awareness for [...] Treatment provided today: Self -Care/Home Management - 20503 Other (Comments): HEP Therapeutic Exercise - 41934 Exercise: seated HS stretch Exercise: standing HR/TR/Hip ABD/EXT/July Exercise: LAQ Exercise: SLR Exercise: quad sets Exercise: heel slides AROM/AAROM Manual Therapy - 77198 Intervention: R knee PROM Intervention: B HS stretch Modalities Non-Timed Vasopneumatic Device - 14086: 10 minutes R knee post Cold Pack - 72249: 10 minutes R knee post Education Was [...] Info) Description 01/27/2025 2:00 PM CDT Appointment [facility] [address] [facility] [address] Rusty José MD [address] [place] [address] Sandy Colin PTA 01/29/2025 2:30 PM CDT Appointment [facility] [address] [facility] [place] [address] Rusty José MD [address] [address] Sandy Colin PTA documented as of this encounter Visit Diagnoses Diagnosis S/P arthroscopic partial medial meniscectomy of right knee- Primary documented in this encounter Additional Health Concerns Assessment Noted Time PHQ-9 Depression Total Score: 10 025 12:30 PM CDT documented as of this encounter Care Teams Ironworker Machine Operator Relationship Specialty Start Date End Date China Garvey FNP [address] [place] [address] [place] [address] PCP - General Nurse Practitioner Family 08/18/18 documented as of this encounter
--- NOTE | ~2025-01-27 | XR_ITS ---
X-rays right knee Indication: Postop pain Comparison: 06/13/2022 Technique: 4 views right knee Findings/Impression: 1. Joint effusion. 2. No fracture or other acute bony abnormality. Reviewed, dictated and finalized at location R.
--- NOTE | ~2025-01-27 | CT_ITS ---
EXAMINATION: CT knee RT wo con DATE: 01/27/2025 02:55 INDICATION: Right knee pain post recent arthroscopy TECHNIQUE: High resolution computed tomography (CT) of the right knee was performed without intravenous contrast. Additional sagittal and coronal reconstructions were performed. Automated exposure control and iterative reconstruction technique were employed. The dose-length product was 614.52 mGy-cm. COMPARISON: Right knee radiographs dated 01/28/2020 FINDINGS: Bone alignment is normal. No fracture. Mild joint space narrowing and tiny marginal osteophytes at the medial compartment. Small to moderate-sized right knee joint effusion at the suprapatellar pouch with suggestion of a small hematocrit level layering in the lateral gutter of the suprapatellar pouch. There is some edema in the subcutaneous fat anterior to the knee and in Hoffa's fat pad likely related to reported recent arthroscopy. Soft tissues are otherwise unremarkable. IMPRESSION: 1. 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 No acute osseous or mild. 2. Edema in the fat at the anterior knee likely relate recent arthroscopy with small to moderate-sized right knee joint effusion with suggestion of small layering hematocrit level likely related to the recent surgery. Reviewed, dictated and finalized at location A. IMPRESSION: 1. 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 No acute osseous or mild. 2. Edema in the fat at the anterior knee likely relate recent arthroscopy with small to moderate-sized right knee joint effusion with suggestion of small laye ring hematocrit level likely related to the recent surgery.
[2025-01-27 01:09] VITALS: BP 95/44; PULSE 69; RESP 16; TEMP 36.6; O2SAT 100
--- OUTSIDE RECORDS SUMMARY | 2025-01-27 01:11 | XMS_ITS | Encounter Summary ---
Author Organization 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 Legal Sex Female 7:54 PM CDT Gender Identity Not on file Sexual Orientation Not on file documented as of this encounter Plan of Treatment Upcoming Encounters Date Type Department Care Team (Late Contact Info) Description 01/27/2025 2:00 PM CDT Appointment [facility] [address] [facility] [place] [address] Rusty José MD [address] [address] Sandy Colin PTA 01/29/2025 2:30 PM CDT Appointment [facility] [address] [facility] [place] [address] Rusty José MD [address] [address] Sandy Colin PTA documented as of this encounter Visit Diagnoses Not on filedocumented in this encounter Additional Health Concerns Infection Onset Date Last Indicated Resolved Time COVID-19 Rule Out 06/10/2024 06/10/2024 06/12/2024 9:38 AM ORAL AND MAXILLOFACIAL SURGERY RESIDENT COVID-19 Rule Out 06/23/2024 06/23/2024 06/23/2024 10:40 AM ORAL AND MAXILLOFACIAL SURGERY RESIDENT COVID-19 Rule Out 06/24/2024 06/24/2024 06/24/2024 2:57 PM ORAL AND MAXILLOFACIAL SURGERY RESIDENT Assessment Noted Time PHQ-9 Depression Total Score: 10 019 12:51 PM CDT documented as of this encounter Care Teams Tub Mender Relationship Specialty Start Date End Date China Garvey FNP [address] [facility] [place] [address] PCP - General Nurse Practitioner Family 08/18/18 documented as of this encounter
--- OUTSIDE RECORDS SUMMARY | 2025-01-27 01:11 | XMS_ITS | Encounter Summary ---
Author Organization [facility] Address [address] [place] [address] Care Team Providers Care Drill Foreman Name Role Phone China Garvey [facility] Primary Care Provider [phone] Encounter Details Date Type Department Care Team (Late st Contact Info) Description 11/04/2020 Admeldt Message Enc [facility] [address] [place] [address] China Garvey [facility] [address] [place] [address] RE: RE: Test Results Social History Tobacco [...] Sex Assigned at Female 06/24/2024 1:29 PM PRESCRIPTIONIST Legal Sex Female 7:54 PM CDT Gender [...] Info) Description 01/27/2025 2:00 PM CDT Appointment [facility] [address] [facility] [address] [place] [address] Rusty José MD [address] [place] [address] Sandy Colin PTA 01/29/2025 2:30 PM CDT Appointment [facility] [address] [facility] [place] [address] Rusty José MD [address] [address] Sandy Colin PTA documented as of this encounter Visit Diagnoses Not on filedocumented in this encounter Additional Health Concerns Infection Onset Date Last Indicated Resolved Time COVID-19 Rule Out 06/10/2024 06/10/2024 06/12/2024 9:38 AM PRESCRIPTIONIST COVID-19 Rule Out 06/23/2024 06/23/2024 06/23/2024 10:40 AM PRESCRIPTIONIST COVID-19 Rule Out 06/24/2024 06/24/2024 06/24/2024 2:57 PM PRESCRIPTIONIST Assessment Noted Time PHQ-9 Depression Total Score: 10 019 12:51 PM CDT documented as of this encounter Care Teams Drill Foreman Relationship Specialty Start Date End Date China Garvey FNP [address] [place] [address] PCP - General Nurse Practitioner Family 08/18/18 documented as of this encounter
--- OUTSIDE RECORDS SUMMARY | 2025-01-27 01:11 | XMS_ITS | Encounter Summary ---
Author Organization [facility] Address [address] [place] [address] Care Team Providers Care Architectural Examiner Name Role Phone China Garvey [facility] Primary Care Provider [phone] Encounter Details Date Type Department Care Team (Late st Contact Info) Description 04/14/2019 SubC Control Message Enc [facility] [address] [place] [address] [facility] [address] [place] [address] RE: Medication Questions Social History Tobacco Use [...] Sex Assigned at Female 06/24/2024 1:29 PM CTC OPERATOR Legal Sex Female 7:54 PM CDT Gender Identity Not on file Sexual Orientation Not on file documented as of this encounter Progress Notes * Opal Gorman LPN - 04/14/2019 4:41 PM CST Please review. OPERATOR documented in this encounter Plan of Treatment Upcoming Encounters Date Type Department Care Team (Late st Contact Info) Description 01/27/2025 2:00 PM CDT Appointment [facility] [address] [facility] [place] [address] Rusty José MD [address] [place] [address] Sandy Colin PTA 01/29/2025 2:30 PM CDT Appointment [facility] [address] [facility] [place] [address] Rusty José MD [address] [place] [address] Sandy Colin PTA documented as of this encounter Visit Diagnoses Not on filedocumented in this encounter Additional Health Concerns Infection Onset Date Last Indicated Resolved Time COVID-19 Rule Out 06/10/2024 06/10/2024 06/12/2024 9:38 AM CTC OPERATOR COVID-19 Rule Out 06/23/2024 06/23/2024 06/23/2024 10:40 AM CTC OPERATOR COVID-19 Rule Out 06/24/2024 06/24/2024 06/24/2024 2:57 PM CTC OPERATOR Assessment Noted Time PHQ-9 Depression Total Score: 10 019 12:51 PM CDT documented as of this encounter Care Teams Architectural Examiner Relationship Specialty Start Date End Date China Garvey FNP [address] [place] [address] PCP - General Nurse Practitioner Family 08/18/18 documented as of this encounter
--- OUTSIDE RECORDS SUMMARY | 2025-01-27 01:11 | XMS_ITS | Encounter Summary ---
Author Organization [facility] Address [address] [place] [address] Care Team Providers Care Chemical Preparer Name Role Phone China Garvey [facility] Primary Care Provider [phone] Encounter Details Date Type Department Care Team (Late st Contact Info) Description 09/30/2020 [employer] Message Enc Pending sale to [facility] [address] [place] [address] [facility] [address] [place] [address] RE: FW: Question Social History Tobacco Use [...] Sex Assigned at Female 06/24/2024 1:29 PM CHIEF HUMAN RESOURCES OFFICER Legal Sex Female 7:54 PM CDT Gender Identity Not on file Sexual Orientation Not on file documented as of this encounter Progress Notes * Shamika Mahajan LPN - 09/30/2020 9:59 AM CDT Please advise. documented in this encounter Plan of Treatment Upcoming Encounters Date Type Department Care Team (Late st Contact Info) Description 01/27/2025 2:00 PM CDT Appointment [facility] [address] [facility] [place] [address] Rusty José MD [address] [address] Sandy Colin PTA 01/29/2025 2:30 PM CDT Appointment [facility] [address] [facility] [place] [address] [place] [address] [address] Sandy Colin PTA documented as of this encounter Visit Diagnoses Not on filedocumented in this encounter Additional Health Concerns Infection Onset Date Last Indicated Resolved Time COVID-19 Rule Out 06/10/2024 06/10/2024 06/12/2024 9:38 AM CHIEF HUMAN RESOURCES OFFICER COVID-19 Rule Out 06/23/2024 06/23/2024 06/23/2024 10:40 AM CHIEF HUMAN RESOURCES OFFICER COVID-19 Rule Out 06/24/2024 06/24/2024 06/24/2024 2:57 PM CHIEF HUMAN RESOURCES OFFICER Assessment Noted Time PHQ-9 Depression Total Score: 10 019 12:51 PM CDT documented as of this encounter Care Teams Chemical Preparer Relationship Specialty Start Date End Date China Garvey FNP [address] [place] [address] PCP - General Nurse Practitioner Family 08/18/18 documented as of this encounter
--- OUTSIDE RECORDS SUMMARY | 2025-01-27 01:11 | XMS_ITS | Encounter Summary ---
Author Organization [facility] Address [address] [place] [address] Care Team Providers Care Hot End Operator Name Role Phone China Garvey TAPE KELLER OPERATOR Primary Care Provider [phone] Encounter Details Date Type Department Care Team (Late Contact Info) Description 05/18/2021 Abstract [facility] CONVERSION [address] [place] [id number] , Generic Conversion, Social History Tobacco Use [...] Sex Assigned at Female 06/24/2024 1:29 PM TECHNICAL BUSINESS SYSTEMS ANALYST Legal Sex Female 7:54 PM CDT Gender Identity Not on file Sexual Orientation Not on file documented as of this encounter Plan of Treatment Upcoming Encounters Date Type Department Care Team (Late Contact Info) Description 01/27/2025 2:00 PM CDT Appointment [facility] [address] [place] [address] Rusty José MD [address] [address] Sandy Colin PTA 01/29/2025 2:30 PM CDT Appointment [facility] [address] [place] [phone] Rusty José MD [address] [place] [address] Sandy Colin PTA documented as of this encounter Visit Diagnoses Not on filedocumented in this encounter Additional Health Concerns Infection Onset Date Last Indicated Resolved Time COVID-19 Rule Out 06/10/2024 06/10/2024 06/12/2024 9:38 AM TECHNICAL BUSINESS SYSTEMS ANALYST COVID-19 Rule Out 06/23/2024 06/23/2024 06/23/2024 10:40 AM TECHNICAL BUSINESS SYSTEMS ANALYST COVID-19 Rule Out 06/24/2024 06/24/2024 06/24/2024 2:57 PM TECHNICAL BUSINESS SYSTEMS ANALYST Assessment Noted Time PHQ-9 Depression Total Score: 0 11/19/19 21 3:32 PM CDT documented as of this encounter Care Teams Hot End Operator Relationship Specialty Start Date End Date China Garvey FNP [address] [place] [address] PCP - General Nurse Practitioner Family 08/18/18 documented as of this encounter
--- OUTSIDE RECORDS SUMMARY | 2025-01-27 01:11 | XMS_ITS | Patient Health Record ---
Author Organization [facility] [employer] Address [address] [facility] [address] [place] [address] Care Team Providers Care Household Refrigeration Mechanic Name Role Phone China Bee Primary Care Provider Jairo Lassiter Unavailable [phone] Allergies Allergen (clinical drug ingredient) Drug/Non Drug [...] Oxazepam (BZO) N 0 - 300 ng/ml 8-obvzdsulhy-9,8-lboodlfe-5,3-diphenylpyrrolidine (ROSSY P) N 0 - 300 ng/ml Methamphetamine (MET) N 0 - 1000 ng/ml Methylenedioxymethamphetamine (MDMA) N 0 - 500 ng/ml Morphine (MOP 300/[id number]) N 0 - 300 ng/ml Methadone (MTD) [...] a day; Duration: 30 days *Reorder from [employer] for eRx and Interaction Alerts* 12/25/2024 Active [...] decision-maker Yes Do you have Power of Rare/Endangered Species Specialist for Health or Medi [facility]? No Tobacco Use: Social Info Question Answer Notes Tobacco Control (Standard) Tobacco use: Nonsmoker Additional Details Category Social Info Options Details Migrated Social History Migrated Social History Alcohol Intake: Occasional 06/18/2023,Tobacco Years: Never smoker 06/18/2023 Problems Problem Type SNOMED Code ICD Code Onset Dates Problem Status W/U Status Risk Notes Problem Moderate recurrent major depression (40113256) Major depressive disorder, recurrent, moderate (F33.1) Active confirmed Problem Severe recurrent major depression without psychotic features (04305714) Major depressive disorder, recurrent severe without psychotic features (F33.2) Active confirmed Problem Generalized anxiety disorder (52091905) Generalized anxiety disorder (F41.1) 4 Active confirmed Problem Insomnia disorder related to another mental disorder (24589694) Insomnia due to other mental disorder (F51.05) [...] 1 Encounters Encounter Location Date Provider Diagnosis [facility] [address] [place] [address] 03/27/2024 Jairo Martinez Generalized anxiety disorder F41.1 ; Insomnia due to other mental disorder F51.05 and Major depressive disorder, recurrent severe without psychotic features F33.2 [employer] [facility] [address] [place] [address] 04/30/2024 Jairo Martinez Generalized anxiety disorder F41.1 ; Insomnia due to other mental disorder F51.05 and Major depressive disorder, recurrent severe without psychotic features F33.2 [employer] [facility] [address] [place] [address] 09/24/2024 Jairo Martinez Major depressive disorder, recurrent severe without psychotic features F33.2 ; Generalized anxiety disorder F41.1 and Insomnia due to other mental disorder F51.05 [facility] [address] [place] [address] 12/25/2024 Jairo Martinez Major depressive disorder, recurrent severe without psychotic features F33.2 ; Generalized anxiety disorder F41.1 and Insomnia due to other mental disorder F51.05 [facility] [address] [place] [address] 06/30/2024 Jairo Martinez Major depressive disorder, recurrent, moderate F33.1 [facility] [address] [place] [address] 07/07/2024 Jairo Martinez Major depressive disorder, recurrent severe without psychotic features F33.2 [facility], [facility] [address] [place] [address] 04/09/2024 Jairo Martinez Major depressive disorder, recurrent, moderate F33.1 [facility], [facility] [address] [place] [address] 04/22/2024 Jairo Martinez [facility], [facility] [address] [place] [address] 04/22/2024 [facility] [address] [place] [address] 04/24/2024 [facility], [facility] [address] [place] [address] 04/28/2024 Jairo Martinez [facility], [facility] [address] [place] [address] 06/02/2024 Jairo Martinez Major depressive disorder, recurrent severe without psychotic features F33.2 [facility], [facility] [address] [place] [address] 06/08/2024 Jairo Martinez [facility], [facility] [address] [place] [address] 06/09/2024 [facility], [facility] [address] [place] [address] 06/10/2024 Jairo Martinez [facility], [facility] [address] [place] [address] 06/11/2024 Jairo Martinez Major depressive disorder, recurrent severe without psychotic features F33.2 [facility], [facility] [address] [place] [address] 06/11/2024 Jairo Martinez Major depressive disorder, recurrent severe without psychotic features F33.2 [facility], [facility] [address] [place] [address] 07/08/2024 Jairo Delucaoza [facility], [facility] [address] [place] [address] 07/08/2024 Jairo Andrewa [facility] [employer] [facility] [address] [place] [address] 09/09/2024 Jairo Martinez Major depressive disorder, recurrent severe without psychotic features F33.2 [facility] [address] [place] [address] 11/03/2024 Jairo Martinez Major depressive disorder, recurrent severe without psychotic features F33.2 [facility] [address] [place] [address] 11/03/2024 Jairo Martinez Major depressive disorder, recurrent severe without psychotic features F33.2 [facility] [address] [place] [address] 11/04/2024 Jairo Martinez Major depressive disorder, recurrent severe without psychotic features F33.2 [facility] [address] [facility] [address] [facility] [address] [place] [address] 11/09/2024 Jairo Martinez Assessments Encounter Date Diagnosis (ICD Code) Assessment Notes Treatment Notes Treatment Clinical Notes Section Notes 03/27/2024 Generalized anxiety disorder (ICD-10 - F41.1) [...] any concerns or updates on their condition. 04/09/2024 Major depressive disorder, recurrent, moderate (ICD-10 - F33.1) 06/02/2024 Major depressive disorder, recurrent severe without [...] severe without psychotic features (ICD-10 - F33.2) 11/04/2024 Major depressive disorder, recurrent severe without [...] LA dose and overall mental health status. 04/30/2024 Insomnia due to other mental disorder [...] 12/25/2024 Generalized anxiety disorder (ICD-10 - F41.1) 09/24/2024 Generalized anxiety disorder (ICD-10 - F41.1) 06/30/2024 Major depressive disorder, recurrent, moderate (ICD-10 - F33.1) Electronic Prior Authorization was requested for Auvelity 45-105 MG Tablet Extended Release. Provider can order medication once approval received. 03/27/2024 Insomnia due to other mental disorder [...] concerns or updates on their condition. 03/27/2024 Major depressive disorder, recurrent severe without [...] concerns or updates on their condition. 04/30/2024 Major depressive disorder, recurrent severe without [...] LA dose and overall mental health status. 09/24/2024 Insomnia due to other mental disorder (ICD-10 - F51.05) trazodone 50mg hs prn 12/25/2024 Insomnia due to other mental disorder (ICD-10 - F51.05) trazodone 50mg hs prn 09/24/2024 Khadijah Rubin, a patient with a [...] AM, [address], [place], [address], Insurance Providers Payer Name Payer Address Payer Phone Subscriber Number Group Number Insured Name Patient Relationship to Insured Coverage Start Date Coverage End Date [employer] [address] [place] [address] [id number] MERCED RUBIN Self - patient is the insured Medical (General) History Medical History History ICD Code Problems: Celiac disease Generalized anxiety disorder Insomnia disorder related to another men robyn disorder Moderate recurrent major depression Severe recurrent major depression withou t psychotic features , Imported from [employer]: On 10/08/2023 patient experienced nausea and vomiting, seen by DENNY Hawk at [facility]. On 11/18/2023 patient was seen by MICHELLE Irby at [facility] for acute cystitis with hematuria and suspected UTI. On 11/24/2023 patient presented with dysuria and mid-back pain, seen by Nadia Munoz NP at [facility]. On 12/02/2023 patient was seen by DENNY Rick at [facility] for rib pain on the left side. On 12/02/2023 patient was also seen by Sarah Black MD at [facility] for iron deficiency anemia refractory to iron therapy. On 01/28/2024 patient was seen by MICHELLE Irby at [facility] for abdominal discomfort and presumed infectious diarrhea. On 02/14/2024 patient was seen by MICHELLE John at [facility] for diarrhea of infectious origin. On 03/02/2024 patient was seen by Sarah Black MD at [facility] for iron deficiency anemia refractory to iron therapy and thrombocytosis. On 06/10/2024 patient was seen by DENNY Sellers at [facility] for acquired hypothyroidism, acute cough, celiac disease, community-acquired pneumonia, generalized anxiety disorder, iron deficiency anemia, persistent depressive disorder, and restless legs syndrome. On 06/23/2024 patient was seen by DENNY Sellers at [facility] for acute cough and acute viral bronchitis. On 06/24/2024 patient was seen by DENNY Sellers at [facility] for acute bronchitis, acute cough, and leukocytosis. On 08/18/2024 patient had an emergency visit with Diego Denis MD at [facility] for strain of neck muscle. Surgical History Surgery Date(Month/Year) Other 06/06/2022
--- OUTSIDE RECORDS SUMMARY | 2025-01-27 01:11 | XMS_ITS | Encounter Summary ---
Author Organization [facility] Address [address] [place] [address] Care Team Providers Care Community Affairs Director Name Role Phone China Garvey [facility] Primary Care Provider [phone] Encounter Details Date Type Department Care Team (Late st Contact Info) Description 01/27/2020 [employer] Message Enc [facility] [address] [place] [address] China Garvey [facility] [address] [place], [place] [id number] RE: Question Social History Tobacco Use Types [...] Sex Assigned at Female 06/24/2024 1:29 PM AUTOMOTIVE SERVICE CASHIER Legal Sex Female 7:54 PM CDT Gender [...] Info) Description 01/27/2025 2:00 PM CDT Appointment [facility] [address] [facility] [place] [address] Rusty José MD [address] [address] Sandy Colin PTA 01/29/2025 2:30 PM CDT Appointment [facility] [address] [facility] [address] Rusty José MD [address] [address] Sandy Colin PTA documented as of this encounter Visit Diagnoses Not on filedocumented in this encounter Additional Health Concerns Infection Onset Date Last Indicated Resolved Time COVID-19 Rule Out 06/10/2024 06/10/2024 06/12/2024 9:38 AM AUTOMOTIVE SERVICE CASHIER COVID-19 Rule Out 06/23/2024 06/23/2024 06/23/2024 10:40 AM AUTOMOTIVE SERVICE CASHIER COVID-19 Rule Out 06/24/2024 06/24/2024 06/24/2024 2:57 PM AUTOMOTIVE SERVICE CASHIER Assessment Noted Time PHQ-9 Depression Total Score: 10 019 12:51 PM CDT documented as of this encounter Care Teams Community Affairs Director Relationship Specialty Start Date End Date China Garvey FNP [address] [place] [address] PCP - General Nurse Practitioner Family 08/18/18 documented as of this encounter
--- OUTSIDE RECORDS SUMMARY | 2025-01-27 01:11 | XMS_ITS | Clinical Summary ---
Author Organization [address] Address [address] [place] [address] Care Team Providers Care Second Miller Name Role Phone China Garvey NP Primary Care Provider [phone] Allergies Active Allergy Reactions Criticality Noted Date [...] 1 tablet (25 mcg total) by mouth furniture crater before breakfast 4 Active ondansetron ODT (ZOFRAN-ODT) [...] on file Legal Sex Female 8:16 AM MEAT CARRIER Gender Identity Not on file Sexual Orientation [...] BL CHOICE PRF [place] Care Teams Second Miller Relationship Specialty Start Date End Date China Garvey NP [address] [place] [address] PCP - General Pediatrics 11/24/23
--- OUTSIDE RECORDS SUMMARY | 2025-01-27 01:11 | XMS_ITS | Encounter Summary ---
Author Organization [facility] Address [address] [place] [address] Care Team Providers Care Government Services Professional Name Role Phone China Garvey DRY CHAIN OFFBEARER Primary Care Provider Reason for Visit * Reason Onset Date Comments Error 03/02/2020 Encounter Details Date Type Department Care Team (Late st Contact Info) Description 03/01/2020 Prep for Procedure [facility] General Surgery - [place] [address] [facility] [facility], [address] [place] [address] Abbi Marlow, [place] [address] [address] Error Social History Tobacco Use Types [...] Sex Assigned at Female 06/24/2024 1:29 PM TRAIN STATION AGENT Legal Sex Female 7:54 PM CDT Gender [...] Info) Description 01/27/2025 2:00 PM CDT Appointment [facility] [address] [place] [address] Rusty José MD [address] [address] Sandy Colin PTA 01/29/2025 2:30 PM CDT Appointment [facility] [address] [place] [address] Rusty José MD [address] [address] Sandy Colin PTA documented as of this encounter Visit Diagnoses Diagnosis ERRONEOUS ENCOUNTER--DISREGARD- Primary documented in this encounter Additional Health Concerns Infection Onset Date Last Indicated Resolved Time COVID-19 Rule Out 06/10/2024 06/10/2024 06/12/2024 9:38 AM TRAIN STATION AGENT COVID-19 Rule Out 06/23/2024 06/23/2024 06/23/2024 10:40 AM TRAIN STATION AGENT COVID-19 Rule Out 06/24/2024 06/24/2024 06/24/2024 2:57 PM TRAIN STATION AGENT Assessment Noted Time PHQ-9 Depression Total Score: 10 019 12:51 PM CDT documented as of this encounter Care Teams Government Services Professional Relationship Specialty Start Date End Date China Garvey FNP [address] [place] [address] PCP - General Nurse Practitioner Family 08/18/18 documented as of this encounter
--- OUTSIDE RECORDS SUMMARY | 2025-01-27 01:11 | XMS_ITS | Encounter Summary ---
Author Organization [facility] Address [address] [place] [address] Care Team Providers Care High Density Press Laborer Name Role Phone China Garvey OPERATOR HELPER Primary Care Provider [phone] Encounter Details Date Type Department Care Team (Latest Contact Info) Description 01/26/2025 Travel Social History Tobacco Use Types Packs/Day Years [...] Sex Assigned at Female 06/24/2024 1:29 PM WIG MAKER Legal Sex Female 7:54 PM CDT Gender Identity Not on file Sexual Orientation Not on file documented as of this encounter Plan of Treatment Upcoming Encounters Date Type Department Care Team (Late st Contact Info) Description 01/27/2025 2:00 PM CDT Appointment [facility] Therapy [address] [facility] [place] [address] Rusty José MD [address] [place] [id number] Sandy Colin PTA 01/29/2025 2:30 PM CDT Appointment [facility] Therapy [address] [place] [address] Rusty José MD [address] [place] [address] Sandy Colin PTA documented as of this encounter Visit Diagnoses Not on filedocumented in this encounter Additional Health Concerns Assessment Noted Time PHQ-9 Depression Total Score: 10 025 12:30 PM CDT documented as of this encounter Care Teams High Density Press Laborer Relationship Specialty Start Date End Date China Garvey FNP [address] [place] [address] PCP - General Nurse Practitioner Family 08/18/18 documented as of this encounter
--- OUTSIDE RECORDS SUMMARY | 2025-01-27 01:11 | XMS_ITS | Encounter Summary ---
Author Organization [facility] Address [address] [place] [address] Care Team Providers Care Lab Rep Name Role Phone China Garvey [facility] Primary Care Provider [phone] Encounter Details Date Type Department Care Team (Late st Contact Info) Description 07/11/2021 [facility] Message Enc [facility] [address] [place] [address] China Garvey, [facility] [address] [place] [address] medication Social History Tobacco Use Types Packs/Day [...] Sex Assigned at Female 06/24/2024 1:29 PM CHURN DRILLER HELPER Legal Sex Female 7:54 PM CDT Gender Identity Not on file Sexual Orientation Not on file documented as of this encounter Plan of Treatment Upcoming Encounters Date Type Department Care Team (Late st Contact Info) Description 01/27/2025 2:00 PM CDT Appointment [facility] Therapy [address] [place] [address] Rusty José MD [address] [address] Sandy Colin PTA 01/29/2025 2:30 PM CDT Appointment [facility] [address] [address] Rusty José MD [address] [address] Sandy Colin PTA documented as of this encounter Visit Diagnoses Not on filedocumented in this encounter Additional Health Concerns Infection Onset Date Last Indicated Resolved Time COVID-19 Rule Out 06/10/2024 06/10/2024 06/12/2024 9:38 AM CHURN DRILLER HELPER COVID-19 Rule Out 06/23/2024 06/23/2024 06/23/2024 10:40 AM CHURN DRILLER HELPER COVID-19 Rule Out 06/24/2024 06/24/2024 06/24/2024 2:57 PM CHURN DRILLER HELPER Assessment Noted Time PHQ-9 Depression Total Score: 0 11/19/19 3:32 PM CDT documented as of this encounter Care Teams Lab Rep Relationship Specialty Start Date End Date China Garvey FNP [address] [place] [address] PCP - General Nurse Practitioner Family 08/18/18 documented as of this encounter
--- OUTSIDE RECORDS SUMMARY | 2025-01-27 01:11 | XMS_ITS | Encounter Summary ---
Author Organization [facility] Address [address] [place] [address] Care Team Providers Care Adult School Counselor Name Role Phone China Garvey [facility] Primary Care Provider [phone] Encounter Details Date Type Department Care Team (Late Contact Info) Description 10/07/2019 MyCApp[employer]erot Message Enc [facility] [address] [place] [id number] China Garvey [facility] [address] [place] [address] RE: Follow Up/Update Social History Tobacco Use [...] Sex Assigned at Female 06/24/2024 1:29 PM INVESTIGATOR VICE Legal Sex Female 7:54 PM CDT Gender Identity Not on file Sexual Orientation Not on file documented as of this encounter Plan of Treatment Upcoming Encounters Date Type Department Care Team (Late Contact Info) Description 01/27/2025 2:00 PM CDT Appointment [facility] [address] [facility] [place] [address] Rusty José MD [address] [address] Sandy Colin PTA 01/29/2025 2:30 PM CDT Appointment [facility] [address] [facility] [place] [address] Rusty José MD [address] [address] Sandy Colin PTA documented as of this encounter Visit Diagnoses Not on filedocumented in this encounter Additional Health Concerns Infection Onset Date Last Indicated Resolved Time COVID-19 Rule Out 06/10/2024 06/10/2024 06/12/2024 9:38 AM INVESTIGATOR VICE COVID-19 Rule Out 06/23/2024 06/23/2024 06/23/2024 10:40 AM INVESTIGATOR VICE COVID-19 Rule Out 06/24/2024 06/24/2024 06/24/2024 2:57 PM INVESTIGATOR VICE Assessment Noted Time PHQ-9 Depression Total Score: 10 019 12:51 PM CDT documented as of this encounter Care Teams Adult School Counselor Relationship Specialty Start Date End Date China Garvey FNP [address] [facility] [place] [address] PCP - General Nurse Practitioner Family 08/18/18 documented as of this encounter
--- OUTSIDE RECORDS SUMMARY | 2025-01-27 01:11 | XMS_ITS | Encounter Summary ---
Author Organization [facility] Address [address] [place] [address] Care Team Providers Care Alternative Dispute Resolution Mediator Name Role Phone China Garvey Primary Care Provider [phone] Encounter Details Date Type Department Care Team (Late st Contact Info) Description 08/29/2023 Blink (air taxi)t Message Enc [facility] [address] [place] [address] China Garvey [facility] [address] [place] [address] Lab tests Social History Tobacco Use Types [...] Sex Assigned at Female 06/24/2024 1:29 PM ELECTRICAL LOGGER Legal Sex Female 7:54 PM CDT Gender [...] Info) Description 01/27/2025 2:00 PM CDT Appointment [facility] [address] [facility] [place] [address] Rusty José MD [address] [address] Sandy Colin PTA 01/29/2025 2:30 PM CDT Appointment [facility] [address] [facility] [place] [address] Rusty José MD [address] [address] Sandy Colin PTA documented as of this encounter Visit Diagnoses Not on filedocumented in this encounter Additional Health Concerns Infection Onset Date Last Indicated Resolved Time COVID-19 Rule Out 06/10/2024 06/10/2024 06/12/2024 9:38 AM ELECTRICAL LOGGER COVID-19 Rule Out 06/23/2024 06/23/2024 06/23/2024 10:40 AM ELECTRICAL LOGGER COVID-19 Rule Out 06/24/2024 06/24/2024 06/24/2024 2:57 PM ELECTRICAL LOGGER Assessment Noted Time PHQ-9 Depression Total Score: 8 08/07/19 24 5:34 PM CDT documented as of this encounter Care Teams Alternative Dispute Resolution Mediator Relationship Specialty Start Date End Date China Garvey FNP [address] [place] [address] [place] [address] PCP - General Nurse Practitioner Family 08/18/18 documented as of this encounter
--- OUTSIDE RECORDS SUMMARY | 2025-01-27 01:11 | XMS_ITS | Encounter Summary ---
Author Organization [facility] Address [address] [place] [address] Care Team Providers Care Vice President Talent Management Name Role Phone China Garevy Primary Care Provider Encounter Details Date Type Department Care Team (Late st Contact Info) Description 06/14/2023 Osent Message Enc [facility] [address] [place] [address] China Garvey [facility] [address] [place] [address] Tesfaye Martinez Social History Tobacco Use Types [...] Sex Assigned at Female 06/24/2024 1:29 PM ESCALATOR CONSTRUCTOR Legal Sex Female 7:54 PM CDT Gender Identity Not on file Sexual Orientation Not on file documented as of this encounter Progress Notes * DENNY Henson - 06/14/2023 2:43 PM CST Great! I'm glad to hear. That is perfect LATOR CONSTRUCTOR * Opal Gorman LPN - 06/14/2023 2:17 PM CST FYI: Please review. LATOR CONSTRUCTOR documented in this encounter Plan of Treatment Upcoming Encounters Date Type Department Care Team (Late st Contact Info) Description 01/27/2025 2:00 PM CDT Appointment [facility] [address] [place], [place] [address] Rusty José MD [address] [address] Sandy Colin PTA 01/29/2025 2:30 PM CDT Appointment [facility] [address] [place] [address] Rusty José MD [address] [address] Sandy Colin PTA documented as of this encounter Visit Diagnoses Not on filedocumented in this encounter Additional Health Concerns Infection Onset Date Last Indicated Resolved Time COVID-19 Rule Out 06/10/2024 06/10/2024 06/12/2024 9:38 AM ESCALATOR CONSTRUCTOR COVID-19 Rule Out 06/23/2024 06/23/2024 06/23/2024 10:40 AM ESCALATOR CONSTRUCTOR COVID-19 Rule Out 06/24/2024 06/24/2024 06/24/2024 2:57 PM ESCALATOR CONSTRUCTOR Assessment Noted Time PHQ-9 Depression Total Score: 24 024 2:47 PM ESCALATOR CONSTRUCTOR documented as of this encounter Care Teams Vice President Talent Management Relationship Specialty Start Date End Date China Garvey FNP [address] [place] [address] PCP - General Nurse Practitioner Family 08/18/18 documented as of this encounter
--- OUTSIDE RECORDS SUMMARY | 2025-01-27 01:11 | XMS_ITS | Clinical Summary ---
Author Organization [facility] Address [address] [place] [address] Care Team Providers Care Nitrocellulose Maker Name Role Phone China Garvey DOCUMENTATION NURSE Primary Care Provider [phone] Allergies Active Allergy Reactions Criticality Noted Date [...] (08/31/2021): Added automatically from request for surgery [id number] Other osteoporosis without current pathological fracture 10/11/2020 Left medial tibial stress syndrome, initial enco unter 03/01/2020 Chronic pain of right knee 02/12/2020 Anxiety disorder 02/12/2018 Overview (12/30/2018): Date Onset: 02/12/2018 Celiac disease (HHS/HCC) 08/17/2016 Overview (12/30/2018): Date Onset: 08/2016 Iron deficiency anemia 04/27/2015 Overview (12/30/2018): Date Onset: 04/27/2015 Depression 09/12/2011 RLS (restless legs syndrome) 09/12/2011 Encounters Date Type Department Care Team Description 01/26/2025 9:46 AM CDT Hospital Encounter [facility] Therapy [address] [place] [address] Rusty José MD Emerick, Noah D, PT Knee Pain 01/26/2025 Travel 01/22/2025 9:52 PM CDT - 01/22/2025 11:30 PM CDT Emergency [facility] Emergency Room [address] [place] [address] Betito Cat MD Wound Discharge Disposition: Home or Self Care (Routine Discharge) 01/22/2025 Travel 01/06/2025 Scan [facility] HE[facility] INFO SRVCS Scanned, [facility] 11/29/2024 Results Follow-Up [address] [place] [address] China Garvey FNP MRI KNEE RT WO CON 11/26/[address] [place] [address] China Garvey FNP Results 11/20/2024 6:39 AM CDT - 11/20/2024 11:59 PM CDT Hospital Encounter [facility] MRI [address] [place] [address] China Garvey FNP Discharge Disposition: Home or Self Care (Routine Discharge) 11/20/2024 Telephone [facility] [address] [facility] [place] [address] China Garvey FNP Referral 11/20/2024 Travel 11/11/2024 Telephone [facility] [address] [facility] [place] [address] China Garvey FNP Orders 11/03/2024 Scan [facility] HEALTH INFO SRVCS Scanned, Doc [facility] 11/03/2024 MyChart Message Enc [facility] [address] [facility] [place] [address] China Garvey FNP Right knee from Last 3 Months Immunizations Immunization Administration [...] Sex Assigned at Female 06/24/2024 1:29 PM INTERMEDIATE MANAGER Legal Sex Female 7:54 PM CDT Gender Identity Not on file Sexual Orientation Not on file Last Filed Vital Signs Vital Sign Reading Time Taken Comments Blood Pressure 103/61 01/22/2025 10:54 PM CDT Pulse 59 01/22/2025 10:54 PM CDT Temperature 36.7 C (98 F) 01/22/2025 10:01 PM CDT Respiratory Rate 16 01/22/2025 10:54 PM CDT Oxygen Saturation 96% 01/22/2025 10:54 PM CDT Inhaled Oxygen Concentration - - Weight 61.2 kg (135 lb) 01/22/2025 10:01 PM CDT Height 165.1 cm (5' 5) 01/22/2025 10:01 PM CDT Body Mass Index 22.47 01/22/2025 10:01 PM CDT Plan of Treatment Upcoming Encounters Date Type Department Care Team (Late st Contact Info) Description 01/27/2025 2:00 PM CDT Appointment [facility] [address] [place] [address] Rusty José MD [address] [address] Sandy Colin PTA 01/29/2025 2:30 PM CDT Appointment [facility] [address] [place] [address] Rusty José MD [address] [address] Sandy Colin PTA Health Maintenance Due Date Last Done Comments [...] Screening wi th HPV 08/29/2023 COVID-19 Vaccine (4 - 2025- 6 season) 2025 04/24/2021, 06/15/2020, 05/18/2020 Colorectal Cancer Screening Colonoscopy (10 Years) 09/30/2031 09/29/2021 DTaP, Tdap and Td Vaccines ( 2 - Td or Tdap) 05/06/2032 05/06/2022 PHQ-2 (Physician [place]) Completed 10/14/2024 Meningococcal B Vaccine Aged Out [...] 11/20/2024 7: 48 AM CDT Knee pain MG SCREENING ZAIRA DIGI 01/18/2020 7:24 PM [...] 8:31 PM Narrative 11/26/2024 8:34 PM CDT [facility] [address] [place] [address] Examination: MRI KNEE RT WO CON Exam [...] Procedure Note Cristi Mcguire MD - 11/26/2024 [facility] [address] [place] [address] Examination: MRI KNEE RT WO CON Exam [...] MD, 11/26/2024 8:31 PM us China Garvey DOCUMENTATION NURSE MRI Final Result * MG SCREENING ZAIRA DIGI (01/18/2020 7:24 PM CDT) Anatomical Region Laterality Modality Breast Bilateral Mammography 01/18/2020 7:24 PM CDT Narrative 01/18/2020 4:23 PM CDT [facility] ---------NAME--------- NUMBER SEX AGE ADMIT DISC. XRAY# F/C TYPE CARLOS ENRIQUE Valdivia [id number] F [id number] 01/18/20 01/18/20 BB O/P DATE OF : 1970 M/R# [id number] #: [id number] MAMMOGRAM SCREENING WITH KHUSHI [id number] COMPLETED: [id number] {MAMMO DX: SCREENING PHYSICIAN: PAMELA LOERA R [...] BOARD CERTIFIED Date/Time: 01/18/20 16:20 Procedure Note Md Generic Conversion, - 01/18/2020 [facility] ---------NAME--------- NUMBER SEX AGE ADMIT DISC. XRAY# F/CTYPE RIOSDelbert ADELA Valdivia [id number] F 49 01/18/20 01/18/20 BBO/P DATE OF : 1970 M/R# [id number] #: [id number] MAMMOGRAM SCREENING WITH KHUSHI [id number] COMPLETED:[id number] {MAMMO DX: SCREENING PHYSICIAN: PAMELA LOERA R [...] , BOARD CERTIFIED Date/Time: 01/18/20 16:20 China Cancino Garvey DOCUMENTATION NURSE MAMMO Final Result * HPV MRNA E6/E7 (08/28/2018 5:15 PM CDT) HPV MRNA E6/E7 Not Detected NOT DETECTED 09/01/2018 4:32 AM CDT [employer] GEORGEJosetteMOSHE GARNICA Comment: This test was performed using the APTIMA(R) HPV Assay([employer]This assay detects E6/E7 viral messenger RNA (mRNA)from 14 high-risk HPV types (16,18,31,33,35,39,45,51,52,56,58,59,66,68).For additional information please refer to:http://education.Checkmarx/faq/KUM128p6(This link is being provided for informational/educational purposes only.)The analytical performance characteristics of thisassay have been determined by [facility] [place], [place]. The modificationshave not been cleared or approved by the FDA. Thisassay has been validated pursuant to the CLIAregulations and is used for clinical purposes.Test Performed by [facility],[employer] [facility],[address] [place] [address]Qwurkhvquentin Lara M.D., Ph.D., Director of [phone], CLIA [id number] FLUID SPECIMEN / Unknown 08/28/2018 5:15 PM CDT 08/28/2018 5:15 PM CDT us Generic Conversion Md [facility] PATH[facility]/CYTOLOGY LESTER POWELL Final Result official.[address] , * [facility] PAP REFLEX HPV MRNA E6/E7 (08/04/2013 5:21 PM CDT) REFLEX ADDED no [facility] P TO EPIC CONVERSION 08/04/2013 5:21 PM CDT 08/04/2013 5:21 PM CDT Narrative [facility] TO EPIC CONVERSION - 08/13/2013 2:04 PM CDT This lab was migrated from [facility] and may be missing annotations or result text, please check the Media tab for the most complete results. [place] BALDWIN PATHOLOGY/CYTOLOGY ORDERABLES Final Result [facility] TO EPIC CONVERSION from Last 3 Months or Most Recently Relevant to Health Maintenance [place] [address] [place] [address] Care Teams Nitrocellulose Maker Relationship Specialty Start Date End Date China Garvey FNP [address] [place] [address] [place] [address] PCP - General Nurse Practitioner Family 08/18/18
--- OUTSIDE RECORDS SUMMARY | 2025-01-27 01:11 | XMS_ITS | Encounter Summary ---
Author Organization [facility] Address [address] [place] [address] Care Team Providers Care Weight Clerk Name Role Phone China Garvey [facility] Primary Care Provider [phone] Encounter Details Date Type Department Care Team (Late st Contact Info) Description 01/31/2021 OncoHealtht Message Enc [facility] [address] [place] [address] China Garvey [facility] [address] [place] [address] RE: FW: Medication Questions Social History Tobacco [...] Sex Assigned at Female 06/24/2024 1:29 PM RN RELIEF CHARGE Legal Sex Female 7:54 PM CDT Gender Identity Not on file Sexual Orientation Not on file documented as of this encounter Progress Notes * Shamika Mahajan LPN - 02/01/2021 2:27 PM CDT Office visit made for 02/08/2021 documented in this encounter Plan of Treatment Upcoming Encounters Date Type Department Care Team (Late st Contact Info) Description 01/27/2025 2:00 PM CDT Appointment [facility] [address] [place] [address] Rusty José MD [address] [address] Sandy Colin PTA 01/29/2025 2:30 PM CDT Appointment [facility] [address] [place] [address] Rusty José MD [address] [address] Sandy Colin PTA documented as of this encounter Visit Diagnoses Not on filedocumented in this encounter Additional Health Concerns Infection Onset Date Last Indicated Resolved Time COVID-19 Rule Out 06/10/2024 06/10/2024 06/12/2024 9:38 AM RN RELIEF CHARGE COVID-19 Rule Out 06/23/2024 06/23/2024 06/23/2024 10:40 AM RN RELIEF CHARGE COVID-19 Rule Out 06/24/2024 06/24/2024 06/24/2024 2:57 PM RN RELIEF CHARGE Assessment Noted Time PHQ-9 Depression Total Score: 0 11/19/19 21 3:32 PM CDT documented as of this encounter Care Teams Weight Clerk Relationship Specialty Start Date End Date China Garvey FNP [address] [place] [address] PCP - General Nurse Practitioner Family 08/18/18 documented as of this encounter
--- OUTSIDE RECORDS SUMMARY | 2025-01-27 01:11 | XMS_ITS | Encounter Summary ---
Author Organization [facility] Address [address] [place] [address] Care Team Providers Care Tableau Administrator Name Role Phone China Garvey [facility] Primary Care Provider [phone] Encounter Details Date Type Department Care Team (Late st Contact Info) Description 10/20/2020 Drug Response Dx Message Enc [facility] [address] [place] [address] China Garvye [facility] [address] [place] [address] RE: Referral Request Social History Tobacco Use [...] Sex Assigned at Female 06/24/2024 1:29 PM HARMONICA MAKER Legal Sex Female 7:54 PM CDT [...] Info) Description 01/27/2025 2:00 PM CDT Appointment [facility] [address] [facility] [place] [address] Rusty José MD [address] [place] [address] Sandy Colin PTA 01/29/2025 2:30 PM CDT Appointment [facility] [address] [facility] [place] [address] Rusty José MD [address] [place] [address] Sandy Colin PTA documented as of this encounter Visit Diagnoses Not on filedocumented in this encounter Additional Health Concerns Infection Onset Date Last Indicated Resolved Time COVID-19 Rule Out 06/10/2024 06/10/2024 06/12/2024 9:38 AM HARMONICA MAKER COVID-19 Rule Out 06/23/2024 06/23/2024 06/23/2024 10:40 AM HARMONICA MAKER COVID-19 Rule Out 06/24/2024 06/24/2024 06/24/2024 2:57 PM HARMONICA MAKER Assessment Noted Time PHQ-9 Depression Total Score: 10 019 12:51 PM CDT documented as of this encounter Care Teams Tableau Administrator Relationship Specialty Start Date End Date China Garvey FNP [address] [place] [address] PCP - General Nurse Practitioner Family 08/18/18 documented as of this encounter
--- OUTSIDE RECORDS SUMMARY | 2025-01-27 01:11 | XMS_ITS | Encounter Summary ---
Author Organization [facility] Address [address] [place] [address] Care Team Providers Care Fur Vault Attendant Name Role Phone China Garvey [facility] Primary Care Provider [phone] Encounter Details Date Type Department Care Team (Late st Contact Info) Description 03/14/2020 [employer] Message Enc [facility] [address] [place] [address] China Garvey [facility] [address] [place] [address] RE: Medication Questions Social History [...] Sex Assigned at Female 06/24/2024 1:29 PM CARPENTER REPAIRER Legal Sex Female 7:54 PM CDT Gender [...] CST LM for patient to return call. ENTER REPAIRER documented in this encounter Plan of Treatment Upcoming Encounters Date Type Department Care Team (Late st Contact Info) Description 01/27/2025 2:00 PM CDT Appointment [facility] [address] [facility] [place] [address] Rusty José MD [address] [place] [address] [phone] Sandy Colin PTA 01/29/2025 2:30 PM CDT Appointment [facility] [address] [facility] [place] [address] Rusty José MD [address] [address] Sandy Colin PTA documented as of this encounter Visit Diagnoses Not on filedocumented in this encounter Additional Health Concerns Infection Onset Date Last Indicated Resolved Time COVID-19 Rule Out 06/10/2024 06/10/2024 06/12/2024 9:38 AM CARPENTER REPAIRER COVID-19 Rule Out 06/23/2024 06/23/2024 06/23/2024 10:40 AM CARPENTER REPAIRER COVID-19 Rule Out 06/24/2024 06/24/2024 06/24/2024 2:57 PM CARPENTER REPAIRER Assessment Noted Time PHQ-9 Depression Total Score: 10 019 12:51 PM CDT documented as of this encounter Care Teams Fur Vault Attendant Relationship Specialty Start Date End Date China Garvey FNP [address] [place] [address] PCP - General Nurse Practitioner Family 08/18/18 documented as of this encounter
--- OUTSIDE RECORDS SUMMARY | 2025-01-27 01:11 | XMS_ITS | Encounter Summary ---
Author Organization [facility] Address [address] [place] [address] Care Team Providers Care New Product Trainer Name Role Phone China Garvey [facility] Primary Care Provider [phone] Encounter Details Date Type Department Care Team (Late st Contact Info) Description 02/07/2021 [employer] Message Enc [facility] [address] [place] [address] China Garvey [facility] [address] [place] [address] RE: Follow Up/Update Social History Tobacco Use [...] Sex Assigned at Female 06/24/2024 1:29 PM COTTON MACHINE OPERATOR Legal Sex Female 7:54 PM CDT Gender Identity Not on file Sexual Orientation Not on file documented as of this encounter Progress Notes * Shamika Mahajan LPN - 02/07/2021 11:27 AM CDT Please note. documented in this encounter Plan of Treatment Upcoming Encounters Date Type Department Care Team (Late st Contact Info) Description 01/27/2025 2:00 PM CDT Appointment [facility] [address] [facility] [place] [address] Rusty José MD [address] [address] Sandy Colin PTA 01/29/2025 2:30 PM CDT Appointment [facility] [address] [facility] [place] [address] Rusty José MD [address] [address] Sandy Colin PTA documented as of this encounter Visit Diagnoses Not on filedocumented in this encounter Additional Health Concerns Infection Onset Date Last Indicated Resolved Time COVID-19 Rule Out 06/10/2024 06/10/2024 06/12/2024 9:38 AM COTTON MACHINE OPERATOR COVID-19 Rule Out 06/23/2024 06/23/2024 06/23/2024 10:40 AM COTTON MACHINE OPERATOR COVID-19 Rule Out 06/24/2024 06/24/2024 06/24/2024 2:57 PM COTTON MACHINE OPERATOR Assessment Noted Time PHQ-9 Depression Total Score: 0 11/19/19 21 3:32 PM CDT documented as of this encounter Care Teams New Product Trainer Relationship Specialty Start Date End Date China Garvey FNP [address] [place] [address] PCP - General Nurse Practitioner Family 08/18/18 documented as of this encounter
--- OUTSIDE RECORDS SUMMARY | 2025-01-27 01:12 | XMS_ITS | Encounter Summary ---
Author Organization [facility] Address [address] [place] [address] Phone Care Team Providers Care Television Receiver Analyzer Name Role Phone China Garvey APRN Primary Care Provider Sarah Black MD Unavailable Encounter Details Date Type Department Care Team (Late st Contact Info) Description 08/17/2024 Telephone [facility] [address], [facility] [address] [place] [address] Sarah Black MD [address] [place] [address] Social History Tobacco Use Types [...] on filedocumented in this encounter Care Teams Television Receiver Analyzer Relationship Specialty Start Date End Date China Garvey APRN [address] [place] [address] PCP - General Certified Nurse Practitioner 07/20/21 Sarah Black MD [address] [place] [address] Consulting Physician Oncology 08/07/24 documented as of this encounter
--- OUTSIDE RECORDS SUMMARY | 2025-01-27 01:12 | XMS_ITS | Encounter Summary ---
Author Organization [facility] Address [address] [place] [address] Care Team Providers Care Paper Cone Grader Name Role Phone China Garvey [facility] Primary Care Provider [phone] Encounter Details Date Type Department Care Team (Late Contact Info) Description 06/23/2024 [employer] Message Enc [facility] [address] [place], [place] [id number] China Garvey [facility] [address] [place], [place] [id number] Pneumonia Social History Tobacco Use Types Packs/Day [...] Sex Assigned at Female 06/24/2024 1:29 PM SHIP CAPTAIN Legal Sex Female 7:54 PM CDT Gender Identity Not on file Sexual Orientation Not on file documented as of this encounter Plan of Treatment Upcoming Encounters Date Type Department Care Team (Late Contact Info) Description 01/27/2025 2:00 PM CDT Appointment [facility] [address] [place] [address] Rusty José MD [address] [address] Sandy Colin PTA 01/29/2025 2:30 PM CDT Appointment [facility] [address] [place] [address] Rusty José MD [address] [address] Sandy Colin PTA documented as of this encounter Visit Diagnoses Not on filedocumented in this encounter Additional Health Concerns Infection Onset Date Last Indicated Resolved Time COVID-19 Rule Out 06/23/2024 06/23/2024 06/23/2024 10:40 AM SHIP CAPTAIN COVID-19 Rule Out 06/24/2024 06/24/2024 06/24/2024 2:57 PM SHIP CAPTAIN Assessment Noted Time PHQ-9 Depression Total Score: 8 08/07/19 24 5:34 PM CDT documented as of this encounter Care Teams Paper Cone Grader Relationship Specialty Start Date End Date China Garvey FNP [address] [place] [address] PCP - General Nurse Practitioner Family 08/18/18 documented as of this encounter
--- OUTSIDE RECORDS SUMMARY | 2025-01-27 01:12 | XMS_ITS | Clinical Summary ---
Author Organization [facility] Address [address] [address] Phone Care Team Providers Care Automatic Beam Warper Tender Name Role Phone Garvey China Cancino APRN [...] patient's age to complete this topic Insurance [facility] Care Teams Automatic Beam Warper Tender Relationship Specialty Start Date End Date China Garvey APRN [address] [place] [address] PCP - General Certified Nurse Practitioner 07/20/21 Sarah Black MD [address] [place] [address] Consulting Physician Oncology 08/07/24
[2025-01-27 02:20] VITALS: BP 115/77; PULSE 88; RESP 18; O2SAT 100
--- NOTE | 2025-01-27 02:39 | ED.LOWEXIN ---
HPI - Extremity Injury (Lower) General Chief Complaint: Extremity Injury, Lower Stated Complaint: r knee surgery last week -increase in pain Time Seen by Provider: 01/27/25 02:09 History of Present Illness HPI Narrative: 54-year-old female presenting with right knee pain. Patient is status postop from a knee surgery with meniscal repair by her orthopedic surgeon Dr. José last week. Patient states she has been recovering and ambulatory with the assistance of some pain medications and some crutches occasionally. Today she was trying to use the restroom and noticed a significant pulling sensation in her right knee and had sharp pain going from the medial aspect of her right knee shooting up towards her buttock/thigh over the top of her leg. Denies any injuries or actual twisting or hyperextension or flexion type injury. She [place] she [place] in [place] when she felt a pulling sensation but has significant pain thereafter. No appreciable swelling or overlying skin changes. No bleeding or overlying signs of infection. Tried taking her prescription pain medications at home without any relief. Presents to the ER for evaluation. Related Data Home Medications ?Medication ?Instructions ?Recorded ?Confirmed ?Last Taken ?Type pramipexole 0.25 mg tablet 0.25 mg PO TID 03/16/20 01/21/25 01/21/25 History dextromethorphan IR 45 1 tablet PO BID 07/31/23 01/12/25 08/09/23 History mg-bupropion ER 105 mg biphasic tablet (Auvelity) levothyroxine 25 mcg tablet 25 mcg PO DAILY 08/09/23 01/21/25 01/21/25 History escitalopram oxalate 10 mg tablet 10 mg PO DAILY 11/20/24 01/21/25 01/21/25 History celecoxib 100 mg capsule (Celebrex) 100 mg PO BID 01/06/25 01/21/25 01/14/25 History multivitamin (Daily Multi-Vitamin 1 tablet PO DAILY 01/12/25 01/21/25 01/18/25 History tablet) Allergies Allergy/AdvReac Type Severity Reaction Status Date / Time codeine Allergy Mild Rash Verified 01/21/25 09:05 Penicillins Allergy Mild rash Verified 01/21/25 09:05 Review of Systems Review of Systems: As reviewed above in HPI [facility] Past Medical History Medical History PTSD (post-traumatic stress disorder) Depression Anxiety RLS (restless legs syndrome) Trigger thumb, right thumb Tear of medial meniscus of right knee BMI 23.0-23.9, adult Osteoarthritis of right knee Anemia Surgical History Surgical History History of tubal ligation History of bladder suspension procedure History of Bilateral carpal tunnel syndrome simultaneous bilateral carpal tunnel release July 02, 2022 H/O shoulder surgery right, 2017, Dr. Lazaro (closed humerus fx) Family History Family History Father Heart disease Grandparent Heart disease Cancer Social History Social History Smoking status: Never smoker Alcohol intake: never Substance use: never Substance use type: does not use Lack of Transportation: No Lack of Food: Never True Current Housing: I Have Housing Concerned About Future Housing: No Difficulty Paying Gas/Electric Bills: No Difficulty Paying for Meds: No Currently Unemployed: No Education: Trade/Vocational Certificate Difficulty w/ Childcare or Family Care: No Living arrangements: with family Occupation/Education: occupation 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 Mucous membranes moist. NECK: Supple. CHEST: [Clear to auscultation. No respiratory distress.] HEART: [Regular rate and rhythm]. No murmur heard. [Normal peripheral pulses.] ABDOMEN: [Soft, nondistended], [nontender], [No rigidity or guarding] EXTREMITIES: Mild postoperative swelling on the right knee with incision sites clean dry and intact without any dehiscence or bleeding. Tenderness along the medial joint line of the right knee consistent with her meniscal injury site and repair. She has pain radiating along the sartorius muscle distribution with palpation but no overlying skin changes or deformity. No obvious swelling distally or signs of DVT. No overlying skin changes with redness warmth or erythema. She has intact extensor mechanisms bilaterally. Plantar and dorsiflexion do not elicit any pain and are full strength bilaterally. SKIN: Warm, dry, no rash. NEURO: [No focal deficits]. Alert and oriented [x3.] PSYCH: [Normal mood and affect.] Course Vital Signs Vital signs: Vital Signs Temperature 36.6 C 01/27/25 01:09 Pulse Rate 69 01/27/25 01:09 Respiratory Rate 16 01/27/25 01:09 Blood Pressure 95/44 L 01/27/25 01:09 Pulse Oximetry 100 01/27/25 01:09 Oxygen Delivery Room Air 01/27/25 01:09 Temperature 36.6 C 01/27/25 01:09 Pulse Rate 61 01/27/25 05:49 Respiratory Rate 18 01/27/25 05:49 Blood Pressure 96/66 L 01/27/25 05:49 Pulse Oximetry 99 01/27/25 05:49 Oxygen Delivery Room Air 01/27/25 01:09 MDM - Extremity Injury (Lower) MDM Narrative Medical decision making narrative: 54-year-old female presenting with right knee pain. Patient is status postop from a knee surgery with meniscal repair by her orthopedic surgeon Dr. José last week. Patient states she has been recovering and ambulatory with the assistance of some pain medications and some crutches occasionally. Today she was trying to use the restroom and noticed a significant pulling sensation in her right knee and had sharp pain going from the medial aspect of her right knee shooting up towards her buttock/thigh over the top of her leg. Denies any injuries or actual twisting or hyperextension or flexion type injury. She states she was in [place] when she felt a pulling sensation but has significant pain thereafter. No appreciable swelling or overlying skin changes. No bleeding or overlying signs of infection. Tried taking her prescription pain medications at home without any relief. Presents to the ER for evaluation. Mild postoperative swelling on the right knee with incision sites clean dry and intact without any dehiscence or bleeding. Tenderness along the medial joint line of the right knee consistent with her meniscal injury site and repair. She has pain radiating along the sartorius muscle distribution with palpation but no overlying skin changes or deformity. No obvious swelling distally or signs of DVT. No overlying skin changes with redness warmth or erythema. She has intact extensor mechanisms bilaterally. Plantar and dorsiflexion do not elicit any pain and are full strength bilaterally. Patient is hemodynamically stable and has strong symmetric pulses and warm extremities. No tachycardia, tachypnea, fever or hypoxemia. Normal blood pressure. Suspect postoperative pain verses new injury. No traumatic injury to inside her symptoms. She does have pain reproducible in the sartorius muscle distributions anteriorly so possibly muscle spasm or pulled muscle with her recent injury and surgery. X-rays were obtained which do not appear overtly obvious for any acute injury. Patient is complaining of significant pain not responsive to oral medications so an IV was established and given intravenous Dilaudid and Zofran for nausea. CT of the lower extremity was obtained for further evaluation. CT scan shows no acute abnormality, moderate joint effusion likely postoperative, no signs of infection. No evidence of fracture. Patient felt better after some Toradol. Will prescribe her Toradol and instructed not take any Celebrex in addition to this. She can also take her additional pain control medications at home and follow-up with her orthopedic surgeon. Patient comfortable the plan and given strict return precautions which she verbalized understanding. Medical Records Attestation: I reviewed the patient's medical records. Imaging Data Attestation: I personally reviewed and interpreted this imaging study as follows: Radiologist's impression: No acute fractures, moderate joint effusion Discharge Plan Discharge Clinical Impression: Acute postoperative pain of right knee Patient Disposition: Home Condition: Stable Instructions: Antibiotic Form, Meniscus Tear (ED), Knee Arthroscopy (DC) Additional Instructions: Your x-rays and CT scans are reassuring with no acute findings, no evidence of fracture. There appears to be some swelling which is likely postoperative. No evidence of any acute injury. We have prescribed be some Toradol to take for pain control. Do not take this medication in addition to her Celebrex as they can affect her kidneys or stomach when taken in combination. You can take this in addition to your hydrocodone for pain control and Tylenol as needed. Follow-up with your orthopedic surgeon for further evaluation on outpatient basis and return if you have any worsening pain or new concerning symptoms/emergent issues. Patient Language: Albanian Prescriptions: New ketorolac 10 mg tablet 10 mg PO Q8H PRN (Reason: pain) 5 Days Qty: 20 0RF Rx Instructions: maximum total duration of 5 days from all oral, intranasal, or parenteral formulations No Action celecoxib [Celebrex] 100 mg capsule 100 mg PO BID pramipexole 0.25 mg tablet 0.25 mg PO TID escitalopram oxalate 10 mg tablet 10 mg PO DAILY Auvelity 45-105 mg tablet,IR,delayed rel,biphasic 1 tablet PO BID levothyroxine 25 mcg tablet 25 mcg PO DAILY multivitamin [Daily Multi-Vitamin] Tablet 1 tablet PO DAILY hydrocodone-acetaminophen 5-325 mg tablet 1 - 2 tablet PO Q4-6H MDD 6 PRN (Reason: pain) Qty: 30 0RF Follow-up/Referrals: Guru,DENNY Sutton-C [Primary Care Provider, Unknown] Time of Disposition: 05:33
--- OUTSIDE RECORDS SUMMARY | 2025-01-27 02:40 | XMS_ITS | Clinical Summary ---
Author Organization [address] Address [address] [place] [address] Care Team Providers Care Tax Agent Name Role Phone China Garvey NP Primary Care Provider [phone] Allergies Active Allergy Reactions Criticality Noted Date [...] 1 tablet (25 mcg total) by mouth mailroom assistant before breakfast 4 Active ondansetron ODT (ZOFRAN-ODT) [...] on file Legal Sex Female 8:16 AM CARGO TANK MECHANIC Gender Identity Not on file Sexual Orientation [...] BL CHOICE PRF P[place] Care Teams Tax Agent Relationship Specialty Start Date End Date China Garvey NP [address] [place] [address] PCP - General Pediatrics 11/24/23
--- OUTSIDE RECORDS SUMMARY | 2025-01-27 02:40 | XMS_ITS | Encounter Summary ---
Author Organization [facility] Address [address] [place] [address] Care Team Providers Care Carpet Cleaning Technician Name Role Phone China Garvey Primary Care Provider [phone] Encounter Details Date Type Department Care Team (Late st Contact Info) Description 08/29/2023 [facility] Message Enc [facility] [address] [place] [address] China Garvey [facility] [address] [place] [address] Lab tests Social History Tobacco [...] Sex Assigned at Female 06/24/2024 1:29 PM CONCRETE PUMP OPERATOR Legal Sex Female 7:54 PM CDT [...] Info) Description 01/27/2025 2:00 PM CDT Appointment [facility] [address] [facility] [place] [address] Rusty José MD [address] [address] Sandy Colin PTA 01/29/2025 2:30 PM CDT Appointment [facility] [address] [facility] [place] [address] Rusty José MD [address] [address] Sandy Colin PTA documented as of this encounter Visit Diagnoses Not on filedocumented in this encounter Additional Health Concerns Infection Onset Date Last Indicated Resolved Time COVID-19 Rule Out 06/10/2024 06/10/2024 06/12/2024 9:38 AM CONCRETE PUMP OPERATOR COVID-19 Rule Out 06/23/2024 06/23/2024 06/23/2024 10:40 AM CONCRETE PUMP OPERATOR COVID-19 Rule Out 06/24/2024 06/24/2024 06/24/2024 2:57 PM CONCRETE PUMP OPERATOR Assessment Noted Time PHQ-9 Depression Total Score: 8 08/07/19 24 5:34 PM CDT documented as of this encounter Care Teams Carpet Cleaning Technician Relationship Specialty Start Date End Date China Garvey FNP [address] [place] [address] [place] [address] PCP - General Nurse Practitioner Family 08/18/18 documented as of this encounter
--- OUTSIDE RECORDS SUMMARY | 2025-01-27 02:40 | XMS_ITS | Encounter Summary ---
Author Organization [facility] Address [address] [place] [address] Care Team Providers Care Roofer Helper Vinyl Coating Name Role Phone China Garvey [facility] Primary Care Provider [phone] Encounter Details Date Type Department Care Team (Late st Contact Info) Description 01/31/2021 for; to (do) Centerst Message Enc [facility] [address] [place] [address] China Garvey [facility] [address] [place] [address] RE: FW: Medication Questions Social [...] Sex Assigned at Female 06/24/2024 1:29 PM OTHER WOOD PROCESSING MACHINE OPERATOR Legal Sex Female 7:54 PM CDT Gender Identity Not on file Sexual Orientation Not on file documented as of this encounter Progress Notes * Shamika Mahajan LPN - 02/01/2021 2:27 PM CDT Office visit made for 02/08/2021 documented in this encounter Plan of Treatment Upcoming Encounters Date Type Department Care Team (Late st Contact Info) Description 01/27/2025 2:00 PM CDT Appointment [facility] [address] [facility] [address] Rusty José MD [address] [address] Sandy Colin PTA 01/29/2025 2:30 PM CDT Appointment [facility] [address] [place] [address] Rusty José MD [address] [address] Sandy Colin PTA documented as of this encounter Visit Diagnoses Not on filedocumented in this encounter Additional Health Concerns Infection Onset Date Last Indicated Resolved Time COVID-19 Rule Out 06/10/2024 06/10/2024 06/12/2024 9:38 AM OTHER WOOD PROCESSING MACHINE OPERATOR COVID-19 Rule Out 06/23/2024 06/23/2024 06/23/2024 10:40 AM OTHER WOOD PROCESSING MACHINE OPERATOR COVID-19 Rule Out 06/24/2024 06/24/2024 06/24/2024 2:57 PM OTHER WOOD PROCESSING MACHINE OPERATOR Assessment Noted Time PHQ-9 Depression Total Score: 0 11/19/19 21 3:32 PM CDT documented as of this encounter Care Teams Roofer Helper Vinyl Coating Relationship Specialty Start Date End Date China Garvey FNP [address] [place] [address] PCP - General Nurse Practitioner Family 08/18/18 documented as of this encounter
--- OUTSIDE RECORDS SUMMARY | 2025-01-27 02:40 | XMS_ITS | Encounter Summary ---
Author Organization [facility] Address [address] [place] [address] Care Team Providers Care Linesperson Name Role Phone China Garvey [facility] Primary Care Provider [phone] Encounter Details Date Type Department Care Team (Late st Contact Info) Description 11/04/2020 [place] Message Enc [facility] [address] [place] [address] China Garvey [facility] [address] [place] [address] RE: RE: Test Results Social [...] Sex Assigned at Female 06/24/2024 1:29 PM SUPERVISOR PYROTECHNIC LOADING Legal Sex Female 7:54 PM CDT Gender [...] Info) Description 01/27/2025 2:00 PM CDT Appointment [facility] [address] [facility] [place] [address] Rusty José MD [address] [place] [address] Sandy Colin PTA 01/29/2025 2:30 PM CDT Appointment [facility] [address] [facility] [place] [address] Rusty José MD [address] [address] Sandy Colin PTA documented as of this encounter Visit Diagnoses Not on filedocumented in this encounter Additional Health Concerns Infection Onset Date Last Indicated Resolved Time COVID-19 Rule Out 06/10/2024 06/10/2024 06/12/2024 9:38 AM SUPERVISOR PYROTECHNIC LOADING COVID-19 Rule Out 06/23/2024 06/23/2024 06/23/2024 10:40 AM SUPERVISOR PYROTECHNIC LOADING COVID-19 Rule Out 06/24/2024 06/24/2024 06/24/2024 2:57 PM SUPERVISOR PYROTECHNIC LOADING Assessment Noted Time PHQ-9 Depression Total Score: 10 019 12:51 PM CDT documented as of this encounter Care Teams Linesperson Relationship Specialty Start Date End Date China Garvey FNP [address] [place] [address] PCP - General Nurse Practitioner Family 08/18/18 documented as of this encounter
--- OUTSIDE RECORDS SUMMARY | 2025-01-27 02:40 | XMS_ITS | Encounter Summary ---
Author Organization [facility] System Address [address] [place] [address] Care Team Providers Care Railroad Police Officer Name Role Phone China Garvey [facility] Primary Care Provider [phone] Encounter Details Date Type Department Care Team (Late st Contact Info) Description 10/20/2020 MoVoxx Message Enc [facility] [address] [place] [address] China Garvey [facility] [address] [place] [address] RE: Referral Request Social History [...] Sex Assigned at Female 06/24/2024 1:29 PM RESTAURANT ASSISTANT Legal Sex Female 7:54 PM CDT Gender [...] Info) Description 01/27/2025 2:00 PM CDT Appointment [facility] [address] [address] [place] [address] Rusty José MD [address] [place] [address] Sandy Colin PTA 01/29/2025 2:30 PM CDT Appointment [facility] [address] [facility] [place] [address] Rusty José MD [address] [place] [address] Sandy Colin PTA documented as of this encounter Visit Diagnoses Not on filedocumented in this encounter Additional Health Concerns Infection Onset Date Last Indicated Resolved Time COVID-19 Rule Out 06/10/2024 06/10/2024 06/12/2024 9:38 AM RESTAURANT ASSISTANT COVID-19 Rule Out 06/23/2024 06/23/2024 06/23/2024 10:40 AM RESTAURANT ASSISTANT COVID-19 Rule Out 06/24/2024 06/24/2024 06/24/2024 2:57 PM RESTAURANT ASSISTANT Assessment Noted Time PHQ-9 Depression Total Score: 10 019 12:51 PM CDT documented as of this encounter Care Teams Railroad Police Officer Relationship Specialty Start Date End Date China Garvey FNP [address] [place] [address] PCP - General Nurse Practitioner Family 08/18/18 documented as of this encounter
--- OUTSIDE RECORDS SUMMARY | 2025-01-27 02:40 | XMS_ITS | Encounter Summary ---
Author Organization [facility] Address [address] [place] [address] Care Team Providers Care Pre Sales Technical Consultant Name Role Phone China Garvey [facility] Primary Care Provider [phone] Encounter Details Date Type Department Care Team (Late st Contact Info) Description 02/07/2021 [employer]er Games Message Enc [facility] [address] [place] [address] China Garvey [facility] [address] [place] [address] RE: Follow Up/Update Social History [...] Sex Assigned at Female 06/24/2024 1:29 PM MAP COLORER Legal Sex Female 7:54 PM CDT Gender Identity Not on file Sexual Orientation Not on file documented as of this encounter Progress Notes * Shamika Mahajan LPN - 02/07/2021 11:27 AM CDT Please note. documented in this encounter Plan of Treatment Upcoming Encounters Date Type Department Care Team (Late st Contact Info) Description 01/27/2025 2:00 PM CDT Appointment [facility] [address] [facility] [place] [address] Rusty José MD [address] [address] Sandy Colin PTA 01/29/2025 2:30 PM CDT Appointment [facility] [address] [facility] [place] [address] Rusty José MD [address] [address] Sandy Colin PTA documented as of this encounter Visit Diagnoses Not on filedocumented in this encounter Additional Health Concerns Infection Onset Date Last Indicated Resolved Time COVID-19 Rule Out 06/10/2024 06/10/2024 06/12/2024 9:38 AM MAP COLORER COVID-19 Rule Out 06/23/2024 06/23/2024 06/23/2024 10:40 AM MAP COLORER COVID-19 Rule Out 06/24/2024 06/24/2024 06/24/2024 2:57 PM MAP COLORER Assessment Noted Time PHQ-9 Depression Total Score: 0 11/19/19 21 3:32 PM CDT documented as of this encounter Care Teams Pre Sales Technical Consultant Relationship Specialty Start Date End Date China Garvey FNP [address] [place] [address] PCP - General Nurse Practitioner Family 08/18/18 documented as of this encounter
--- OUTSIDE RECORDS SUMMARY | 2025-01-27 02:40 | XMS_ITS | Encounter Summary ---
Author Organization [facility] Address [address] [place] [address] Care Team Providers Care Cooker Helper Name Role Phone China Garvey Primary Care Provider Encounter Details Date Type Department Care Team (Late st Contact Info) Description 12/02/2023 Limat Message Enc [facility] [address] [place] [address] China Garvey FNP [address] [place] [address] Blood work Social History Tobacco Use Types [...] Sex Assigned at Female 06/24/2024 1:29 PM CLINICAL APPLICATIONS SPECIALIST Legal Sex Female 7:54 PM CDT Gender Identity Not on file Sexual Orientation Not on file documented as of this encounter Progress Notes * DENNY Hnes[place] - 12/03/2023 1:27 PM CDT Labs reviewed. Improved! Continued follow up per Dr Hess as planned * Opal Gorman LPN - 12/03/2023 12:29 PM CDT Please review/advise. documented in this encounter Plan of Treatment Upcoming Encounters Date Type Department Care Team (Late st Contact Info) Description 01/27/2025 2:00 PM CDT Appointment [facility] [address] [place] [address] Rusty José MD [address] [address] Sandy Colin PTA 01/29/2025 2:30 PM CDT Appointment [facility] [address] [place] [address] Rusty José MD [address] [address] Sandy Colin PTA documented as of this encounter Visit Diagnoses Not on filedocumented in this encounter Additional Health Concerns Infection Onset Date Last Indicated Resolved Time COVID-19 Rule Out 06/10/2024 06/10/2024 06/12/2024 9:38 AM CLINICAL APPLICATIONS SPECIALIST COVID-19 Rule Out 06/23/2024 06/23/2024 06/23/2024 10:40 AM CLINICAL APPLICATIONS SPECIALIST COVID-19 Rule Out 06/24/2024 06/24/2024 06/24/2024 2:57 PM CLINICAL APPLICATIONS SPECIALIST Assessment Noted Time PHQ-9 Depression Total Score: 8 08/07/19 24 5:34 PM CDT documented as of this encounter Care Teams Cooker Helper Relationship Specialty Start Date End Date China Garvey FNP [address] [place] [address] PCP - General Nurse Practitioner Family 08/18/18 documented as of this encounter
--- OUTSIDE RECORDS SUMMARY | 2025-01-27 02:40 | XMS_ITS | Encounter Summary ---
Author Organization [facility] Address [address] [place] [address] Care Team Providers Care Motor Racer Name Role Phone China Garvey [facility] Primary Care Provider [phone] Encounter Details Date Type Department Care Team (Late st Contact Info) Description 03/14/2020 Supply Vision Message Enc [facility] [address] [place] [address] China Garvey [facility] [address] [place] [address] RE: Medication Questions Social History [...] Sex Assigned at Female 06/24/2024 1:29 PM BILINGUAL OFFICE ASSISTANT Legal Sex Female 7:54 PM CDT [...] CST LM for patient to return call. NGUAL OFFICE ASSISTANT documented in this encounter Plan of Treatment Upcoming Encounters Date Type Department Care Team (Late st Contact Info) Description 01/27/2025 2:00 PM CDT Appointment [facility] [address] [facility] [place] [address] Rusty José MD [address] [place] [address] [phone] Sandy Colin PTA 01/29/2025 2:30 PM CDT Appointment [facility] [address] [facility] [place] [address] Rusty José MD [address] [address] Sandy Colin PTA documented as of this encounter Visit Diagnoses Not on filedocumented in this encounter Additional Health Concerns Infection Onset Date Last Indicated Resolved Time COVID-19 Rule Out 06/10/2024 06/10/2024 06/12/2024 9:38 AM BILINGUAL OFFICE ASSISTANT COVID-19 Rule Out 06/23/2024 06/23/2024 06/23/2024 10:40 AM BILINGUAL OFFICE ASSISTANT COVID-19 Rule Out 06/24/2024 06/24/2024 06/24/2024 2:57 PM BILINGUAL OFFICE ASSISTANT Assessment Noted Time PHQ-9 Depression Total Score: 10 019 12:51 PM CDT documented as of this encounter Care Teams Motor Racer Relationship Specialty Start Date End Date China Garvey FNP [address] [place] [address] PCP - General Nurse Practitioner Family 08/18/18 documented as of this encounter
--- OUTSIDE RECORDS SUMMARY | 2025-01-27 02:40 | XMS_ITS | Encounter Summary ---
Author Organization [facility] Address [address] [place] [address] Care Team Providers Care Physician Practice Manager Name Role Phone China Garvey [facility] Primary Care Provider [phone] Encounter Details Date Type Department Care Team (Late st Contact Info) Description 07/11/2021 Platypus Platformt Message Enc [facility] [address] [place] [address] China Garvey, [facility] [address] [place] [address] medication Social History Tobacco Use [...] Sex Assigned at Female 06/24/2024 1:29 PM ELECTRICIAN CONTROL EQUIPMENT Legal Sex Female 7:54 PM CDT Gender Identity Not on file Sexual Orientation Not on file documented as of this encounter Plan of Treatment Upcoming Encounters Date Type Department Care Team (Late st Contact Info) Description 01/27/2025 2:00 PM CDT Appointment [facility] [address] [place] [address] Rusty José MD [address] [address] Sandy Colin PTA 01/29/2025 2:30 PM CDT Appointment [facility] [address] [facility] [address] Rusty José MD [address] [address] Sandy Colin PTA documented as of this encounter Visit Diagnoses Not on filedocumented in this encounter Additional Health Concerns Infection Onset Date Last Indicated Resolved Time COVID-19 Rule Out 06/10/2024 06/10/2024 06/12/2024 9:38 AM ELECTRICIAN CONTROL EQUIPMENT COVID-19 Rule Out 06/23/2024 06/23/2024 06/23/2024 10:40 AM ELECTRICIAN CONTROL EQUIPMENT COVID-19 Rule Out 06/24/2024 06/24/2024 06/24/2024 2:57 PM ELECTRICIAN CONTROL EQUIPMENT Assessment Noted Time PHQ-9 Depression Total Score: 0 11/19/19 3:32 PM CDT documented as of this encounter Care Teams Physician Practice Manager Relationship Specialty Start Date End Date China Garvey FNP [address] [place] [address] PCP - General Nurse Practitioner Family 08/18/18 documented as of this encounter
--- OUTSIDE RECORDS SUMMARY | 2025-01-27 02:40 | XMS_ITS | Encounter Summary ---
Author Organization [facility] Address [address] [place] [address] Care Team Providers Care Engraver Flatware Name Role Phone China Garvye [employer] ATT[employer] Primary Care Provider [phone] Encounter Details Date Type Department Care Team [...] Sex Assigned at Female 06/24/2024 1:29 PM SKETCH LINER Legal Sex Female 7:54 PM CDT Gender Identity Not on file Sexual Orientation Not on file documented as of this encounter Plan of Treatment Upcoming Encounters Date Type Department Care Team (Late st Contact Info) Description 01/27/2025 2:00 PM CDT Appointment [facility] [address] [facility] [address] Rusty José MD [address] [place] [phone] Sandy Colin PTA 01/29/2025 2:30 PM CDT Appointment [facility] [address] [place] [address] Rusty José MD [address] [place] [address] Sandy Colin PTA documented as of this encounter Visit Diagnoses Not on filedocumented in this encounter Additional Health Concerns Assessment Noted Time PHQ-9 Depression Total Score: 10 025 12:30 PM CDT documented as of this encounter Care Teams Engraver Flatware Relationship Specialty Start Date End Date China Garvey FNP [address] [place] [address] PCP - General Nurse Practitioner Family 08/18/18 documented as of this encounter
--- OUTSIDE RECORDS SUMMARY | 2025-01-27 02:40 | XMS_ITS | Encounter Summary ---
Author Organization [facility] Address [address] [place] [address] Care Team Providers Care Public Safety Telecommunicator Name Role Phone China Garvey [facility] Primary Care Provider [phone] Encounter Details Date Type Department Care Team (Late st Contact Info) Description 09/30/2020 Eye-Q Message Enc [facility] [address] [place] [address] China Garvey [facility] [address] [place] [address] RE: FW: Question Social History [...] Sex Assigned at Female 06/24/2024 1:29 PM SURGICAL TRAINING SPECIALIST Legal Sex Female 7:54 PM CDT Gender Identity Not on file Sexual Orientation Not on file documented as of this encounter Progress Notes * Shamika Mahajan LPN - 09/30/2020 9:59 AM CDT Please advise. documented in this encounter Plan of Treatment Upcoming Encounters Date Type Department Care Team (Late st Contact Info) Description 01/27/2025 2:00 PM CDT Appointment [facility] [address] [place] [address] Rusty José MD [address] [address] Sandy Colin PTA 01/29/2025 2:30 PM CDT Appointment [facility] [address] [place] [address] Rusty José MD [address] [address] Sandy Colin PTA documented as of this encounter Visit Diagnoses Not on filedocumented in this encounter Additional Health Concerns Infection Onset Date Last Indicated Resolved Time COVID-19 Rule Out 06/10/2024 06/10/2024 06/12/2024 9:38 AM SURGICAL TRAINING SPECIALIST COVID-19 Rule Out 06/23/2024 06/23/2024 06/23/2024 10:40 AM SURGICAL TRAINING SPECIALIST COVID-19 Rule Out 06/24/2024 06/24/2024 06/24/2024 2:57 PM SURGICAL TRAINING SPECIALIST Assessment Noted Time PHQ-9 Depression Total Score: 10 019 12:51 PM CDT documented as of this encounter Care Teams Public Safety Telecommunicator Relationship Specialty Start Date End Date China Garvey FNP [address] [place] [address] PCP - General Nurse Practitioner Family 08/18/18 documented as of this encounter
--- OUTSIDE RECORDS SUMMARY | 2025-01-27 02:40 | XMS_ITS | Encounter Summary ---
Author Organization [facility] Address [address] [place] [address] Care Team Providers Care Calculator Operator Name Role Phone China Garvey CREATIVE CONSULTANT Primary Care Provider [phone] Encounter Details Date Type Department Care Team (Late Contact Info) Description 05/18/2021 Abstract [facility] CONVERSION [address] [place] [id number] , Generic Conversion, Social History Tobacco Use [...] Sex Assigned at Female 06/24/2024 1:29 PM CLAY DRY PRESS HELPER Legal Sex Female 7:54 PM CDT Gender Identity Not on file Sexual Orientation Not on file documented as of this encounter Plan of Treatment Upcoming Encounters Date Type Department Care Team (Late Contact Info) Description 01/27/2025 2:00 PM CDT Appointment [facility] Therapy [address] [place] [address] Rusty José MD [address] [address] Sandy Colin PTA 01/29/2025 2:30 PM CDT Appointment [facility] Therapy [address] [place] [id number] Rusty José MD [address] [place] [address] Sandy Colin PTA documented as of this encounter Visit Diagnoses Not on filedocumented in this encounter Additional Health Concerns Infection Onset Date Last Indicated Resolved Time COVID-19 Rule Out 06/10/2024 06/10/2024 06/12/2024 9:38 AM CLAY DRY PRESS HELPER COVID-19 Rule Out 06/23/2024 06/23/2024 06/23/2024 10:40 AM CLAY DRY PRESS HELPER COVID-19 Rule Out 06/24/2024 06/24/2024 06/24/2024 2:57 PM CLAY DRY PRESS HELPER Assessment Noted Time PHQ-9 Depression Total Score: 0 11/19/19 21 3:32 PM CDT documented as of this encounter Care Teams Calculator Operator Relationship Specialty Start Date End Date China Garvey FNP [address] [place] [address] PCP - General Nurse Practitioner Family 08/18/18 documented as of this encounter
--- OUTSIDE RECORDS SUMMARY | 2025-01-27 02:40 | XMS_ITS | Encounter Summary ---
Author Organization [facility] Address [address] [place] [address] Care Team Providers Care Option Trader Name Role Phone China Garvey Primary Care Provider [phone] Encounter Details Date Type Department Care Team (Late st Contact Info) Description 06/14/2023 CommitChanget Message Enc [facility] [address] [place] [address] China Garvey [facility] [address] [place] [address] Tesfaye Martinez Social History Tobacco [...] Sex Assigned at Female 06/24/2024 1:29 PM LETTER OF CREDIT DOCUMENT EXAMINER Legal Sex Female 7:54 PM CDT Gender Identity Not on file Sexual Orientation Not on file documented as of this encounter Progress Notes * DENNY Henson - 06/14/2023 2:43 PM CST Great! I'm glad to hear. That is perfect ER OF CREDIT DOCUMENT EXAMINER * Opal Gorman LPN - 06/14/2023 2:17 PM CST FYI: Please review. ER OF CREDIT DOCUMENT EXAMINER documented in this encounter Plan of Treatment Upcoming Encounters Date Type Department Care Team (Late st Contact Info) Description 01/27/2025 2:00 PM CDT Appointment [facility] [address] [facility] [address] [facility] [address] [place], [place] [address] Rusty José MD [address] [address] Sandy Coiln PTA 01/29/2025 2:30 PM CDT Appointment [facility] [address] [place] [address] Rusty José MD [address] [address] Sandy Colin PTA documented as of this encounter Visit Diagnoses Not on filedocumented in this encounter Additional Health Concerns Infection Onset Date Last Indicated Resolved Time COVID-19 Rule Out 06/10/2024 06/10/2024 06/12/2024 9:38 AM LETTER OF CREDIT DOCUMENT EXAMINER COVID-19 Rule Out 06/23/2024 06/23/2024 06/23/2024 10:40 AM LETTER OF CREDIT DOCUMENT EXAMINER COVID-19 Rule Out 06/24/2024 06/24/2024 06/24/2024 2:57 PM LETTER OF CREDIT DOCUMENT EXAMINER Assessment Noted Time PHQ-9 Depression Total Score: 24 024 2:47 PM LETTER OF CREDIT DOCUMENT EXAMINER documented as of this encounter Care Teams Option Trader Relationship Specialty Start Date End Date China Garvey FNP [address] [place] [address] PCP - General Nurse Practitioner Family 08/18/18 documented as of this encounter
--- OUTSIDE RECORDS SUMMARY | 2025-01-27 02:41 | XMS_ITS | Encounter Summary ---
Author Organization [facility] Address [address] [place] [address] Care Team Providers Care Foundry Supervisor Name Role Phone China Garvey [facility] Primary Care Provider [phone] Encounter Details Date Type Department Care Team (Late Contact Info) Description 10/09/2019 MyChart Message Enc [facility] [address] [place], [place] [phone] China Garvey [facility] [address] [place] [address] RE: RE: Medication Questions Social History Tobacco [...] Sex Assigned at Female 06/24/2024 1:29 PM SNACK BAR CASHIER Legal Sex Female 7:54 PM CDT Gender Identity Not on file Sexual Orientation Not on file documented as of this encounter Plan of Treatment Upcoming Encounters Date Type Department Care Team (Late Contact Info) Description 01/27/2025 2:00 PM CDT Appointment [facility] [address] [facility] [place] [address] Rusty José MD [address] [address] Sandy Colin PTA 01/29/2025 2:30 PM CDT Appointment [facility] [address] [facility] [place] [address] Rusty José MD [address] [address] Sandy Colin PTA documented as of this encounter Visit Diagnoses Not on filedocumented in this encounter Additional Health Concerns Infection Onset Date Last Indicated Resolved Time COVID-19 Rule Out 06/10/2024 06/10/2024 06/12/2024 9:38 AM SNACK BAR CASHIER COVID-19 Rule Out 06/23/2024 06/23/2024 06/23/2024 10:40 AM SNACK BAR CASHIER COVID-19 Rule Out 06/24/2024 06/24/2024 06/24/2024 2:57 PM SNACK BAR CASHIER Assessment Noted Time PHQ-9 Depression Total Score: 10 019 12:51 PM CDT documented as of this encounter Care Teams Foundry Supervisor Relationship Specialty Start Date End Date China Garvey FNP [address] [facility] [place] [address] PCP - General Nurse Practitioner Family 08/18/18 documented as of this encounter
--- OUTSIDE RECORDS SUMMARY | 2025-01-27 02:41 | XMS_ITS | Encounter Summary ---
Author Organization [facility] Address [address] [place] [address] Care Team Providers Care Briar Wood Sorter Name Role Phone China Garvey [facility] Primary Care Provider [phone] Encounter Details Date Type Department Care Team (Late Contact Info) Description 06/23/2024 [employer] Message Enc [facility] [address] [place], [place] [address] China Garvey [facility] [address] [place], [place] [phone] Pneumonia Social History Tobacco Use Types Packs/Day [...] Sex Assigned at Female 06/24/2024 1:29 PM NEW PATIENT ESCORT Legal Sex Female 7:54 PM CDT Gender Identity Not on file Sexual Orientation Not on file documented as of this encounter Plan of Treatment Upcoming Encounters Date Type Department Care Team (Late Contact Info) Description 01/27/2025 2:00 PM CDT Appointment [facility] [address] [place] [address] Rusty José MD [address] [address] Sandy Colin PTA 01/29/2025 2:30 PM CDT Appointment [facility] [address] [facility] [place] [address] Rusty José MD [address] [address] Sandy Colin PTA documented as of this encounter Visit Diagnoses Not on filedocumented in this encounter Additional Health Concerns Infection Onset Date Last Indicated Resolved Time COVID-19 Rule Out 06/23/2024 06/23/2024 06/23/2024 10:40 AM NEW PATIENT ESCORT COVID-19 Rule Out 06/24/2024 06/24/2024 06/24/2024 2:57 PM NEW PATIENT ESCORT Assessment Noted Time PHQ-9 Depression Total Score: 8 08/07/19 24 5:34 PM CDT documented as of this encounter Care Teams Briar Wood Sorter Relationship Specialty Start Date End Date China Garvey FNP [address] [place] [address] PCP - General Nurse Practitioner Family 08/18/18 documented as of this encounter
--- OUTSIDE RECORDS SUMMARY | 2025-01-27 02:41 | XMS_ITS | Clinical Summary ---
Author Organization [facility] Address [address] [address] Phone Care Team Providers Care Sausage Meat Trimmer Name Role Phone Garvey China Cancino APRN [...] patient's age to complete this topic Insurance [facility] Care Teams Sausage Meat Trimmer Relationship Specialty Start Date End Date China Garvey APRN [address] [place] [address] PCP - General Certified Nurse Practitioner 07/20/21 Sarah [place] MD [address] [place] [address] Consulting Physician Oncology 08/07/24
--- OUTSIDE RECORDS SUMMARY | 2025-01-27 02:41 | XMS_ITS | Encounter Summary ---
Author Organization [facility] Address [address] [place] [address] Phone Care Team Providers Care Heel Cover Softener Name Role Phone China Garvey APRN Primary Care Provider [phone] Sarah Black MD Unavailable Encounter Details Date Type Department Care Team (Late st Contact Info) Description 08/17/2024 Telephone [facility] [address], [facility] [address] [place] [address] Sarah Black MD [address] [place] [address] Social History Tobacco Use Types [...] on filedocumented in this encounter Care Teams Heel Cover Softener Relationship Specialty Start Date End Date China Garvey APRN [address] [place] [address] PCP - General Certified Nurse Practitioner 07/20/21 Sarah Black MD [address] [place] [address] Consulting Physician Oncology 08/07/24 documented as of this encounter
--- OUTSIDE RECORDS SUMMARY | 2025-01-27 02:41 | XMS_ITS | Encounter Summary ---
Author Organization [facility] Address [address] [place] [address] Care Team Providers Care Residential Housekeeper Name Role Phone China Garvey [facility] Primary Care Provider [phone] Encounter Details Date Type Department Care Team (Late st Contact Info) Description 04/14/2019 DB3 Mobile Message Enc [facility] [address] [place] [address] China Garvey [facility] [address] [place] [address] RE: Medication Questions Social History [...] Sex Assigned at Female 06/24/2024 1:29 PM COMMERCIAL DECORATOR Legal Sex Female 7:54 PM CDT Gender Identity Not on file Sexual Orientation Not on file documented as of this encounter Progress Notes * Opal Gorman LPN - 04/14/2019 4:41 PM CST Please review. ERCIAL DECORATOR documented in this encounter Plan of Treatment Upcoming Encounters Date Type Department Care Team (Late st Contact Info) Description 01/27/2025 2:00 PM CDT Appointment [facility] [address] [place] [address] Rusty José MD [address] [place] [address] Sandy Colin PTA 01/29/2025 2:30 PM CDT Appointment [facility] [address] [place] [address] Rusty José MD [address] [place] [address] Sandy Colin PTA documented as of this encounter Visit Diagnoses Not on filedocumented in this encounter Additional Health Concerns Infection Onset Date Last Indicated Resolved Time COVID-19 Rule Out 06/10/2024 06/10/2024 06/12/2024 9:38 AM COMMERCIAL DECORATOR COVID-19 Rule Out 06/23/2024 06/23/2024 06/23/2024 10:40 AM COMMERCIAL DECORATOR COVID-19 Rule Out 06/24/2024 06/24/2024 06/24/2024 2:57 PM COMMERCIAL DECORATOR Assessment Noted Time PHQ-9 Depression Total Score: 10 019 12:51 PM CDT documented as of this encounter Care Teams Residential Housekeeper Relationship Specialty Start Date End Date China Garvey FNP [address] [place] [address] PCP - General Nurse Practitioner Family 08/18/18 documented as of this encounter
--- OUTSIDE RECORDS SUMMARY | 2025-01-27 02:41 | XMS_ITS | Encounter Summary ---
Author Organization [facility] Address [address] [place] [address] Care Team Providers Care Device Processing Engineer Name Role Phone China Garvey [facility] Primary Care Provider [phone] Encounter Details Date Type Department Care Team (Late st Contact Info) Description 01/27/2020 Five minutest Message Enc [facility] [address] [place] [address] China Garvey [facility] [address] [place], [place] [id number] RE: Question Social History Tobacco Use Types [...] Sex Assigned at Female 06/24/2024 1:29 PM DUST SAMPLER Legal Sex Female 7:54 PM CDT Gender [...] Info) Description 01/27/2025 2:00 PM CDT Appointment [facility] [address] [place] [address] Rusty José MD [address] [address] Sandy Colin PTA 01/29/2025 2:30 PM CDT Appointment [facility] [address] [place] [address] Rusty José MD [address] [address] Sandy Colin PTA documented as of this encounter Visit Diagnoses Not on filedocumented in this encounter Additional Health Concerns Infection Onset Date Last Indicated Resolved Time COVID-19 Rule Out 06/10/2024 06/10/2024 06/12/2024 9:38 AM DUST SAMPLER COVID-19 Rule Out 06/23/2024 06/23/2024 06/23/2024 10:40 AM DUST SAMPLER COVID-19 Rule Out 06/24/2024 06/24/2024 06/24/2024 2:57 PM DUST SAMPLER Assessment Noted Time PHQ-9 Depression Total Score: 10 019 12:51 PM CDT documented as of this encounter Care Teams Device Processing Engineer Relationship Specialty Start Date End Date China Garvey FNP [address] [place] [address] PCP - General Nurse Practitioner Family 08/18/18 documented as of this encounter
--- OUTSIDE RECORDS SUMMARY | 2025-01-27 02:41 | XMS_ITS | Encounter Summary ---
Author Organization [facility] Address [address] [place] [address] Care Team Providers Care Bass Viol Repairer Name Role Phone China Garvey SCALLOP DREDGER Primary Care Provider [phone] Reason for Visit * Reason Onset Date Comments Error 03/02/2020 Encounter Details Date Type Department Care Team (Late st Contact Info) Description 03/01/2020 Prep for Procedure [facility] General Surgery - Praveen [address] [facility], [address] [place] [address] Abbi Marlow, [place] [address] [address] Error Social History Tobacco Use [...] Sex Assigned at Female 06/24/2024 1:29 PM CANCER GENETICS ASSISTANT Legal Sex Female 7:54 PM CDT [...] Info) Description 01/27/2025 2:00 PM CDT Appointment [facility] [address] [place] [address] Rusty José MD [address] [address] Sandy Colin PTA 01/29/2025 2:30 PM CDT Appointment [facility] [address] [place] [address] Rusty José MD [address] [address] Sandy Colin PTA documented as of this encounter Visit Diagnoses Diagnosis ERRONEOUS ENCOUNTER--DISREGARD- Primary documented in this encounter Additional Health Concerns Infection Onset Date Last Indicated Resolved Time COVID-19 Rule Out 06/10/2024 06/10/2024 06/12/2024 9:38 AM CANCER GENETICS ASSISTANT COVID-19 Rule Out 06/23/2024 06/23/2024 06/23/2024 10:40 AM CANCER GENETICS ASSISTANT COVID-19 Rule Out 06/24/2024 06/24/2024 06/24/2024 2:57 PM CANCER GENETICS ASSISTANT Assessment Noted Time PHQ-9 Depression Total Score: 10 019 12:51 PM CDT documented as of this encounter Care Teams Bass Viol Repairer Relationship Specialty Start Date End Date China Garvey FNP [address] [place] [address] PCP - General Nurse Practitioner Family 08/18/18 documented as of this encounter
--- OUTSIDE RECORDS SUMMARY | 2025-01-27 02:41 | XMS_ITS | Clinical Summary ---
Author Organization [facility] Address [address] [place] [address] Care Team Providers Care Die Maker Stamping Name Role Phone China Garvey FLOOR TECHNICIAN Primary Care Provider [phone] Allergies Active Allergy Reactions Criticality Noted Date [...] (08/31/2021): Added automatically from request for surgery [id number] Other osteoporosis without current pathological fracture 10/11/2020 [...] Description 01/26/2025 9:46 AM CDT Hospital Encounter [facility] [address] [place] [address] Rusty José MD Emerick, Noah D, PT Knee Pain 01/26/2025 Travel 01/22/2025 9:52 PM CDT - 01/22/2025 11:30 PM CDT Emergency [facility] Emergency Room [address] [place] [address] Betito Cat MD Wound Discharge Disposition: Home or Self Care (Routine Discharge) 01/22/2025 Travel 01/06/2025 Scan [facility] HE[facility] INFO SRVCS Scanned, [facility] 11/29/2024 Results Follow-Up [address] [place] [address] China Garvey FNP MRI KNEE RT WO CON 11/26/[address] [place] [address] China Garvey FNP Results 11/20/2024 6:39 AM CDT - 11/20/2024 11:59 PM CDT Hospital Encounter [facility] MRI [address] [facility] [place] [address] China Garvey FNP Discharge Disposition: Home or Self Care (Routine Discharge) 11/20/2024 Telephone [facility] [address] [facility] [place] [address] China Garvey FNP Referral 11/20/2024 Travel 11/11/2024 Telephone [facility] [address] [facility] [place] [address] China Garvey FNP Orders 11/03/2024 Scan [facility] HEALTH INFO SRVCS Scanned, [facility] 11/03/2024 MyChart Message Enc [facility] [address] [facility] [place] [address] China Garvey FNP Right knee from Last [...] Sex Assigned at Female 06/24/2024 1:29 PM 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 Legal Sex Female 7:54 PM CDT Gender [...] Description 01/27/2025 2:00 PM CDT Appointment [facility] [address] [place] [address] Rusty José MD [address] [address] Sandy Colin PTA 01/29/2025 2:30 PM CDT Appointment [facility] [address] [facility] [place] [address] Rusty José MD [address] [address] Sandy Colin PTA Health Maintenance Due Date [...] Td or Tdap) 05/06/2032 05/06/2022 PHQ-2 (Physician [place]) Completed 10/14/2024 Meningococcal B Vaccine Aged Out [...] 8:31 PM Narrative 11/26/2024 8:34 PM CDT [facility] [address] [place] [address] Examination: MRI KNEE RT WO CON Exam [...] Procedure Note Cristi Mcguire MD - 11/26/2024 [facility] [address] [place] [address] Examination: MRI KNEE RT WO CON Exam [...] MD, 11/26/2024 8:31 PM us China Garvey FLOOR TECHNICIAN MRI Final Result * MG SCREENING ZAIRA DIGI (01/18/2020 7:24 PM CDT) Anatomical Region Laterality Modality Breast Bilateral Mammography 01/18/2020 7:24 PM CDT Narrative 01/18/2020 4:23 PM CDT [facility] ---------NAME--------- NUMBER SEX AGE ADMIT DISC. XRAY# F/C TYPE CARLOS ENRIQUE Valdivia [id number] F 49 01/18/20 01/18/20 BB O/P DATE OF : 1970 M/R# [id number] #: [id number] MAMMOGRAM SCREENING WITH KHUSHI [id number] COMPLETED: [id number] {MAMMO DX: SCREENING PHYSICIAN: PAMELA LOERA R [...] Procedure Note Md Generic Conversion, - 01/18/2020 [facility] ---------NAME--------- NUMBER SEX AGE ADMIT DISC. XRAY# F/CTYPE RIOSDelbert ADELA Valdivia [id number] F 49 01/18/20 01/18/20 BBO/P DATE OF : 1970 M/R# [id number] #: [id number] MAMMOGRAM SCREENING WITH KHUSHI [id number] COMPLETED:[id number] {MAMMO DX: SCREENING PHYSICIAN: PAMELA LOERA R [...] CERTIFIED Date/Time: 01/18/20 16:20 China Cancino Garvey FLOOR TECHNICIAN MAMMO Final Result * HPV MRNA E6/E7 (08/28/2018 5:15 PM CDT) HPV MRNA E6/E7 Not Detected NOT DETECTED 09/01/2018 4:32 AM CDT Assure[facility] GEORGEJosetteMOSHE GARNICA Comment: This test was performed using the APTIMA(R) HPV Assay([employer]This assay detects E6/E7 viral messenger RNA (mRNA)from 14 high-risk HPV types (16,18,31,33,35,39,45,51,52,56,58,59,66,68).For additional information please refer to:http://education.ThermaSource/faq/VJO859o9(This link is being provided for informational/educational purposes only.)The analytical performance characteristics of thisassay have been determined by [place]. The modificationshave not been cleared or approved by the FDA. Thisassay has been validated pursuant to the CLIAregulations and is used for clinical purposes.Test Performed by [facility],[employer] [facility],[address] [place] [id number] Lara M.D., Ph.D., Director of [phone], CLIA [id number] FLUID SPECIMEN / Unknown 08/28/2018 5:15 PM CDT 08/28/2018 5:15 PM CDT us Generic Conversion Md [facility]/CYTOLOGY LESTER POWELL Final Result [employer] , * [facility] PAP REFLEX HPV MRNA E6/E7 (08/04/2013 5:21 PM CDT) REFLEX ADDED no [facility] P TO EPIC CONVERSION 08/04/2013 5:21 PM CDT 08/04/2013 5:21 PM CDT Narrative [facility] TO EPIC CONVERSION - 08/13/2013 2:04 PM CDT This lab was migrated from [facility] and may be missing annotations or result text, please check the Media tab for the most complete results. [place] BALDWIN PATHOLOGY/CYTOLOGY ORDERABLES Final Result [facility] TO EPIC CONVERSION from Last 3 Months or Most Recently Relevant to Health Maintenance [place] [address] [address] [address] Care Teams Die Maker Stamping Relationship Specialty Start Date End Date China Garvey FNP [address] [place] [address] [place] [address] PCP - General Nurse Practitioner Family 08/18/18
--- OUTSIDE RECORDS SUMMARY | 2025-01-27 02:41 | XMS_ITS | Encounter Summary ---
Author Organization [facility] Address [address] [place] [address] Care Team Providers Care Pumper Helper Name Role Phone China Garvey [facility] Primary Care Provider [phone] Encounter Details Date Type Department Care Team (Late Contact Info) Description 10/07/2019 MyCQlusterst Message Enc [facility] [address] [place], [place] [id number] China Garvey [facility] [address] [place] [address] RE: Follow Up/Update Social History Tobacco Use [...] Sex Assigned at Female 06/24/2024 1:29 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 Legal Sex Female 7:54 PM CDT Gender Identity Not on file Sexual Orientation Not on file documented as of this encounter Plan of Treatment Upcoming Encounters Date Type Department Care Team (Late Contact Info) Description 01/27/2025 2:00 PM CDT Appointment [facility] [address] [place] [address] Rusty José MD [address] [address] Sandy Colin PTA 01/29/2025 2:30 PM CDT Appointment [facility] [address] [place] [address] Rusty José MD [address] [address] Sandy Colin PTA documented as of this encounter Visit Diagnoses Not on filedocumented in this encounter Additional Health Concerns Infection Onset Date Last Indicated Resolved Time COVID-19 Rule Out 06/10/2024 06/10/2024 06/12/2024 9:38 AM SHOVEL LOADER OPERATOR COVID-19 Rule Out 06/23/2024 06/23/2024 06/23/2024 10:40 AM SHOVEL LOADER OPERATOR COVID-19 Rule Out 06/24/2024 06/24/2024 06/24/2024 2:57 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 Assessment Noted Time PHQ-9 Depression Total Score: 10 019 12:51 PM CDT documented as of this encounter Care Teams Pumper Helper Relationship Specialty Start Date End Date China Garvey FNP [address] [facility] [address] PCP - General Nurse Practitioner Family 08/18/18 documented as of this encounter
[2025-01-27] MEDS: HYDROmorphone HCL INJ (*CRX) 1 MG/ML SYR IV PUSH (02:46)
[2025-01-27] MEDS: ONDANSETRON INJ 4 MG/2 ML VIAL IV PUSH (02:46)
[2025-01-27 04:47] VITALS: BP 100/67; PULSE 63; RESP 18; O2SAT 99
[2025-01-27] MEDS: KETOROLAC 15 MG/ML VIAL (*BKC) IV PUSH (05:00)
[2025-01-27 05:49] VITALS: BP 96/66; PULSE 61; RESP 18; O2SAT 99
== END 2025-01-27 05:50 | disposition home or self-care (01) ==
PROVIDERS: Emergency Provider Student in an Organized Health Care Education/Training Program; PCP Nurse Practitioner
DX: G89.18 Other acute postprocedural pain (principal); M25.561 Pain in right knee
CPT/HCPCS: 73564; 73700; 96374; 96375; 99284; J1171; J1885; J2405